=== PATIENT | male | born 1940 | race Caucasian/White ===

== ENCOUNTER 2019-07-16 15:58 | Inpatient (IN) | payer OTHER, SELFPAY ==
[2019-07-16] VITALS (9 sets, daily range): BP systolic 114–127; BP diastolic 52–93; PULSE 46–100; RESP 18–20; TEMP 36.2–37; O2SAT 94–100; BMI 25.0
--- NOTE | ~2019-07-16 | XR_ITS ---
EXAMINATION: XR chest 1V portable EXAM DATE: 07/16/2019 16:48 INDICATION: Shortness of breath. TECHNIQUE: Portable AP frontal chest x-ray was obtained. Comparison is made to prior examination from 06/30/2016. FINDINGS: There is cardiomegaly. No confluent consolidation, pneumothorax or pleural effusion suspect ed. There are mild bony degenerative changes. IMPRESSION: Cardiomegaly. Reviewed, dictated and finalized at location A. RTAINMENT DANCER IMPRESSION: Cardiomegaly.
--- NOTE | 2019-07-16 16:20 | ED.SOB ---
HPI - SOB/Dyspnea General Chief Complaint: Shortness of Breath/Dyspnea Stated Complaint: sob Time Seen by Provider: 07/16/19 16:18 Source: patient and family Mode of arrival: ambulatory Limitations: no limitations History of Present Illness HPI Narrative: An 78 y/o male presents to the ED with c/o mild SOB. Per patient's family, the SOB started 2 weeks and has been constant since. The patient states that the SOB is aggravated with exertion. The family adds that the patient fell on 07/12/19 due to trouble walking. He reports chest wall soreness and BLE swelling, but denies cough, CP, PERALES, back pain, ABD pain, and fever. Pt has been seeing his content producer, Dr. Archibald, for the last few weeks for the BLE swelling. He has a PMHx of dementia, CHF, and AFib, and takes blood thinners daily. MD elicited complaint: shortness of breath Pertinent past history: congestive heart failure Onset (ago): week(s) (2) Timing: constant Severity: mild Exacerbating factors: exertion Associated symptoms: other (Chest wall soreness, BLE swelling) Related Data Allergies Allergy/AdvReac Type Severity Reaction Status Date / Time quinidine Allergy Mild RASH Unverified 02/04/17 14:08 amoxicillin Allergy Unknown Verified 12/08/16 09:58 codeine Allergy Unknown Verified 12/08/16 09:58 enalapril Allergy Unknown Verified 12/08/16 09:58 Penicillins Allergy Unknown Verified 12/08/16 09:58 Review of Systems Review of Systems: All systems reviewed & are unremarkable except as noted in HPI and below Constitutional: Constitutional: Denies fever(s) Cardiovascular: Cardiovascular: Denies chest pain, Reports leg edema (BLE) and Reports other (Chest wall soreness) Respiratory: Respiratory: Denies cough and Reports dyspnea Gastrointestinal: Gastrointestinal: Denies abdominal pain Musculoskeletal: Musculoskeletal: Denies back pain Neurologic: Denies headache(s) [facility] Past Medical History Medical History (Updated 07/16/19 @ 17:55 by Berenice Friedman MD) Afib Ankle fracture, left Arthritis BPH (benign prostatic hyperplasia) Cataracts, bilateral CHF (congestive heart failure) Dementia Eczema History of blood transfusion HTN (hypertension) Pneumonia Shingles Thoracic aortic aneurysm Ventral hernia Surgical History Surgical History (Updated 07/16/19 @ 16:35 by Lisa Oneal) History of cataract surgery History of inguinal hernia repair Family History Family History Sibling Family history of gastrointestinal disorder Mother Acute myocardial infarction Father Family history of lung cancer Family history of emphysema Social History Social History Smoking status: Never smoker Comments Pt has a past surgical history of a pancreaticoduodenectomy for bile duct carcinoma. Exam Const: General: no acute distress and well developed Orientation/consciousness: oriented to person, oriented to place, oriented to time and patient oriented x3 HENMT: Head: normocephalic Ears: external ears normal General nose exam: Normal external nose present Eyes: General: appearance normal, both eyes and all related structures Conjunctivae: conjunctivae normal Neck: Neck: normal visual inspection and full ROM Chest: Chest palpation & inspection: no tenderness and other (Anterior chest wall ecchymosis) Resp: Effort & Inspection: tachypneic Auscultation: clear to auscultation bilaterally Cardio: Rate: tachycardic Rhythm: abnormal rhythm irregularly irregular GI: GI Palp: No abdominal tenderness and Yes Soft to palpation Skin: General skin exam: normal color and turgor normal Neuro: General: oriented to person, oriented to place, oriented to time and patient oriented x3 Cognition (Neuro): normal cognition Extrem: General: normal to inspection, full ROM and edema bilateral (Lower extremity) Psych: Appearance: grossly normal Mental Status: mental status grossly
--- NOTE | 2019-07-16 16:36 | ECG_ITS ---
Measurements Intervals [place] Rate: 86 P: [place]: 0 QRS: -64 QRSD: 113 T: 38 QT: 369 QTc: 442 Interpretive Statements ATRIAL FIBRILLATION LEFT ANTERIOR FASCICULAR BLOCK ABNORMAL ECG Electronically Signed On 07-17-2019 8:14:44 CDT by Scott Sanabria D.O.
[2019-07-16 16:52] LABS: Basophils Percent Auto 0.3 % (0.2-1.2); Eosinophils Absolute Auto 0.1 K/mm3 (0-0.3); Eosinophils Percent Auto 1.5 % (0-4.4); Hematocrit 30.9 % (42.0-52.0); Immature Granulocyte Absolute 0.05 K/mm3 (0.00-0.031); Immature Granulocyte Percent A 0.7 % (0-0.5); Immature Platelet Fraction Pct 2.6 % (0.9-11.2); Lymphocytes Absolute Auto 1.27 K/mm3 (0.9-3.2); Lymphocytes Percent Auto 17.6 % (18.3-44.2); Mean Corpuscular HGB Conc 32.4 g/dl (32-36); Mean Corpuscular Hemoglobin 30.2 pg (26-34); Mean Corpuscular Volume 93.4 fl (80-100); Mean Platelet Volume 10.3 fl (7.4-10.4); Monocytes Percent Auto 13.5 % (2.6-8.5); Neutrophils Absolute Auto 4.8 K/mm3 (1.3-6.7); Neutrophils Percent Auto 66.4 % (45.5-73.1); Platelet Count Result 130 k/mm3 (150-375); Red Blood Count 3.31 M/mm3 (4.6-6.20); Red Cell Distribution Width 14.4 % (11.5-14.5); White Blood Count 7.2 K/mm3 (4.5-10.0)
[2019-07-16 17:02] LABS: Alanine Aminotransferase 27 U/L (4-50); Albumin Level 3.6 g/dL (3.5-5.1); Alkaline Phosphatase 112 U/L (38-126); Aspartate Amino Transferase 42 U/L (17-59); Bilirubin,Total 0.9 mg/dL (0.2-1.3); Blood Urea Nitrogen 28 mg/dL (9-20); Calcium 8.4 mg/dL (8.4-10.2); Carbon Dioxide 24 mmol/L (22-30); Chloride 105 mmol/L (98-107); Estimated CRCL calculation 50 ml/min; Estimated Glomerular Filt Rate 58; Glucose 87 mg/dL (75-110); Potassium 4.8 mmol/L (3.4-5.0); Sodium 133 mmol/L (137-145)
[2019-07-16 17:08] LABS: INR 3.6; Prothrombin Time 35.2 Seconds (11.1-14.7)
[2019-07-16 17:09] LABS: Partial Thromboplastin Time 56.4 SECONDS (22.3-36.8)
[2019-07-16 17:16] LABS: Troponin I 0.052 ng/mL (0.000-0.034)
[2019-07-16 17:48] LABS: NT Pro B Type Natriuretic Pept 7190 PG/ML (5-100)
[2019-07-16] MEDS: FUROSEMIDE INJ 40 MG/4 ML VIAL IV PUSH (18:06)
--- NOTE | 2019-07-16 18:40 | PC.NURSE ---
Pt's family is asking to give the patient his home Metoprolol. Spoke with [employer] Trejo and she stated he was okay to take his home medication.
--- NOTE | 2019-07-16 19:45 | ADMGEN ---
This patient, Abraham Garland, was admitted to IMU Room 210-01 AT 1915. Patient/family oriented to hospital policies and general routines including ID bracelet, bed and alarms, visiting hours, pain management, procedures, bathroom and other care routines, personal items, smoking policy, room service/diet, and visiting hours. Valuables list has been completed. Information on how to activate the Rapid Response Team has been discussed. Patient/Family are encouraged to report perceived risks to care and to ask questions if they do not understand what they are told or what they should do.
[2019-07-16 20:41] LABS: Troponin I 0.056 ng/mL (0.000-0.034)
[2019-07-16] MEDS: DONEPEZIL HCL 10 MG TABLET PO (22:46)
[2019-07-16] MEDS: FINASTERIDE 5 MG TABLET PO (22:46)
[2019-07-16 22:56] LABS: Troponin I 0.058 ng/mL (0.000-0.034)
[2019-07-16] MEDS: METOPROLOL TARTRATE 25 MG TABLET PO (23:41)
[2019-07-16] MEDS: METOPROLOL TARTRATE 12.5 MG TABLET PO (23:42)
[2019-07-17] VITALS (18 sets, daily range): BP systolic 104–139; BP diastolic 72–94; PULSE 72–119; RESP 16–22; TEMP 35.7–37.4; O2SAT 94–100; BMI 10.0
--- NOTE | 2019-07-17 03:46 | PC.NURSE ---
Daylight Savings Time For Daylight Savings Time Ending in the Fall - Clocks are moved back. For Daylight Savings Time Beginning in the Spring - Clocks are moved ahead. For [facility], the time of change occurs at 0200 hrs. Time is taken from the kitchen food server. This entry on the patient's chart recognizes the change in time reflected during documentation. Example: 2 entries for vital signs may be charted for 0200 hrs.
[2019-07-17 05:15] LABS: INR 3.3; Prothrombin Time 33.2 Seconds (11.1-14.7)
[2019-07-17 05:21] LABS: Blood Urea Nitrogen 25 mg/dL (9-20); Calcium 8.2 mg/dL (8.4-10.2); Carbon Dioxide 24 mmol/L (22-30); Chloride 105 mmol/L (98-107); Estimated CRCL calculation 50 ml/min; Estimated Glomerular Filt Rate 58; Glucose 93 mg/dL (75-110); Potassium 3.9 mmol/L (3.4-5.0); Sodium 134 mmol/L (137-145)
[2019-07-17] MEDS: SPIRONOLACTONE 25 MG TABLET PO (08:50)
[2019-07-17] MEDS: METOPROLOL TARTRATE 25 MG TABLET PO ×2 (08:52→20:39)
[2019-07-17] MEDS: METOPROLOL TARTRATE 12.5 MG TABLET PO ×2 (08:53→20:40)
[2019-07-17] MEDS: FUROSEMIDE INJ 40 MG/4 ML VIAL IV PUSH ×3 (08:54→20:38)
[2019-07-17] MEDS: LOSARTAN POTASSIUM 50 MG TABLET PO (08:54)
--- NOTE | 2019-07-17 15:08 | PM.IMHP ---
H&P: HPI History of Present Illness Chief complaint: chf Narrative: Abraham Garland is a 78 year old male very poor historian his is present in the room the patient is normally seen in [facility] his commercial litigation attorney Dr. Archibald is at the hospital, patient states he was seen by the commercial litigation attorney 2 weeks ago had a cardiac echo and he was told ejection fraction is between 35 and 40% patient presented emergency department with a complaint of shortness of breath lower extremity edema, The patient while in his backyard fell and landed on his chest he complains of soreness and bruising, but denies any chest pain palpitation fever or chills, patient tropes are mildly elevated flat Review of Systems Review of Systems: All systems reviewed & are unremarkable except as noted in HPI and below PMFSH Past Medical History Medical History (Updated 07/17/19 @ 15:29 by Anne Blancas MD) Afib Ankle fracture, left Arthritis BPH (benign prostatic hyperplasia) Cataracts, bilateral CHF (congestive heart failure) Dementia Eczema History of blood transfusion HTN (hypertension) Pneumonia Shingles Thoracic aortic aneurysm Ventral hernia Surgical History Surgical History (Updated 07/16/19 @ 16:35 by Lisa Oneal) History of cataract surgery History of inguinal hernia repair Family History Family History Sibling Family history of gastrointestinal disorder Mother Acute myocardial infarction Father Family history of lung cancer Family history of emphysema Social History Social History Smoking status: Never smoker Alcohol intake: former Substance use: never Substance use type: does not use Gender identity (if verbalized by the patient): Male Spiritual care concerns: No Agree to blood products: Yes Meds Home Medications and Allergies Home Medications Medication Instructions Recorded Confirmed Type donepezil 10 mg PO HS 07/16/19 07/16/19 History finasteride 5 mg PO HS 07/16/19 07/16/19 History furosemide 80 mg PO DAILY 07/16/19 07/16/19 History losartan 50 mg PO DAILY 07/16/19 07/16/19 History metoprolol tartrate 37.5 mg PO BID 07/16/19 07/16/19 History spironolactone 25 mg PO DAILY 07/16/19 07/16/19 History warfarin [Jantoven] See Rx Instructions .ROUTE .COMPLEX 07/16/19 07/16/19 History warfarin [Jantoven] See Rx Instructions .ROUTE .COMPLEX 07/16/19 07/16/19 History Allergies Allergy/AdvReac Type Severity Reaction Status Date / Time amoxicillin Allergy Intermediate Rash Verified 07/16/19 18:00 codeine Allergy Intermediate Unknown Verified 07/16/19 18:00 quinidine Allergy Mild RASH Verified 07/16/19 18:00 enalapril Allergy Unknown Unknown Verified 07/16/19 18:00 Penicillins Allergy Unknown Unknown Verified 07/16/19 18:00 Vital Signs Vital Signs - 24 hr 07/16/19 16:14 07/16/19 16:45 07/16/19 18:57 Temperature 98.6 F Pulse Rate 46 L 86 100 Respiratory Rate 20 20 Blood Pressure 114/52 L 126/93 H Pulse Oximetry 97 100 07/16/19 19:11 07/16/19 19:28 07/16/19 20:00 Temperature 97.2 F L Pulse Rate 94 84 84 Respiratory Rate 20 20 20 Blood Pressure 127/76 126/71 Pulse Oximetry 100 94 98 07/16/19 22:00 07/16/19 23:41 07/16/19 23:42 Temperature 97.5 F L Pulse Rate 98 80 95 Respiratory Rate 18 Blood Pressure 116/62 Pulse Oximetry 100 07/17/19 00:00 07/17/19 03:00 07/17/19 03:38 Temperature 97.2 F L Pulse Rate 82 85 84 Respiratory Rate 18 16 Blood Pressure 119/80 Pulse Oximetry 100 100 07/17/19 04:00 07/17/19 06:00 07/17/19 08:00 Temperature 96.2 F L Pulse Rate 94 72 74 Respiratory Rate 18 20 Blood Pressure 122/74 Pulse Oximetry 100 100 07/17/19 08:52 07/17/19 08:53 07/17/19 10:00 Temperature Pulse Rate 82 82 78 Respiratory Rate Blood Pressure Pulse Oximetry 07/17/19 12:00 Temperature 98.3 F Pulse Rate 100 R
[2019-07-17] MEDS: DONEPEZIL HCL 10 MG TABLET PO (20:39)
[2019-07-17] MEDS: FINASTERIDE 5 MG TABLET PO (20:39)
--- NOTE | 2019-07-17 21:37 | PC.NURSE ---
Pt is confused was very combative kicking and trying to punch and climb out of bed. Barbara was notified. After calming the pt and switching him to a room with a sitter she came up and saw him. Pt has stopped hitting at the moment but is still very agitated no orders were given will continue to monitor.
[2019-07-18] VITALS (18 sets, daily range): BP systolic 103–117; BP diastolic 59–69; PULSE 75–120; RESP 18–20; TEMP 36.3–36.6; O2SAT 98–100
[2019-07-18] MEDS: HALOPERIDOL LACTATE 5 MG/ML VIAL 2 MG IM (01:31)
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
[2019-07-18 05:24] LABS: Hematocrit 35.8 % (42.0-52.0); Hemoglobin 11.5 g/dL (14.0-18.0); Mean Corpuscular HGB Conc 32.1 g/dl (32-36); Mean Corpuscular Hemoglobin 29.9 pg (26-34); Mean Platelet Volume 10.3 fl (7.4-10.4); Platelet Count Result 123 k/mm3 (150-375); Red Blood Count 3.85 M/mm3 (4.6-6.20); Red Cell Distribution Width 14.2 % (11.5-14.5); White Blood Count 8.8 K/mm3 (4.5-10.0)
[2019-07-18 05:32] LABS: INR 2.1; Prothrombin Time 23.5 Seconds (11.1-14.7)
[2019-07-18 05:44] LABS: Blood Urea Nitrogen 32 mg/dL (9-20); Calcium 8.8 mg/dL (8.4-10.2); Carbon Dioxide 29 mmol/L (22-30); Chloride 103 mmol/L (98-107); Estimated CRCL calculation 50 ml/min; Estimated Glomerular Filt Rate 58; Glucose 98 mg/dL (75-110); Potassium 4.3 mmol/L (3.4-5.0); Sodium 138 mmol/L (137-145)
[2019-07-18 05:45] LABS: Magnesium 2.3 mg/dL (1.6-2.3)
[2019-07-18] MEDS: SPIRONOLACTONE 25 MG TABLET PO (09:58)
[2019-07-18] MEDS: LOSARTAN POTASSIUM 50 MG TABLET PO (09:59)
[2019-07-18] MEDS: METOPROLOL TARTRATE 25 MG TABLET PO ×2 (09:59→21:23)
[2019-07-18] MEDS: METOPROLOL TARTRATE 12.5 MG TABLET PO ×2 (09:59→21:22)
--- NOTE | 2019-07-18 16:40 | PM.IMPN ---
Progress Note: A&P Assessment and Plan (1) Systolic CHF, acute on chronic: Code(s): I50.23 - Acute on chronic systolic (congestive) heart failure Status: Acute Assessment and Plan: 07/18/19 16:40 Abraham Garland is a 78 year old male very poor historian his is present in the room the patient is normally seen in [facility] his tobacco sorter Dr. Archibald is at the hospital, patient states he was seen by the tobacco sorter 2 weeks ago had a cardiac echo and he was told ejection fraction is between 35 and 40% patient presented emergency department with a complaint of shortness of breath lower extremity edema, The patient while in his backyard fell and landed on his chest he complains of soreness and bruising, but denies any chest pain palpitation fever or chills, patient tropes are mildly elevated flat, patient started on IV Lasix will continue and monitor patient has a known patient's symptoms are already improving, today patient work with physical therapy is quite off balance and will require will benefit from acute rehab I spoke to the adult daycare coordinator and they will arrange for SNF. (2) Afib: Code(s): I48.91 - Unspecified atrial fibrillation Status: Acute Assessment and Plan: Patient rate is controlled patient is anticoagulated with Coumadin will resume Coumadin 6 mg Thursday through Thursday and on Thursday patient takes 4 mg, INR today is 2 point will monitor INR (3) HTN (hypertension): Code(s): I10 - Essential (primary) hypertension Status: Acute Assessment and Plan: Will continue home regimen and monitor (4) Dementia: Code(s): F03.90 - Unspecified dementia without behavioral disturbance Status: Acute Assessment and Plan: Patient is clinically stable Subjective Date/time seen: 07/18/19 16:40 Abraham Garland is a 78 year old male very poor historian his is present in the room the patient is normally seen in [facility] his tobacco sorter Dr. Archibald is at the hospital, patient states he was seen by the tobacco sorter 2 weeks ago had a cardiac echo and he was told ejection fraction is between 35 and 40% patient presented emergency department with a complaint of shortness of breath lower extremity edema, The patient while in his backyard fell and landed on his chest he complains of soreness and bruising, but denies any chest pain palpitation fever or chills, patient tropes are mildly elevated flat, patient started on IV Lasix will continue and monitor patient has a known patient's symptoms are already improving, today patient work with physical therapy is quite off balance and will require will benefit from acute rehab I spoke to the adult daycare coordinator and they will arrange for SNF. Review of Systems Review of Systems: All systems reviewed & are unremarkable except as noted in HPI and below Exam Narrative: Exam Narrative: Elderly frail anxious Const: General: comfortable and no acute distress HENMT: General nose exam: Normal nares present Mouth: Yes moist mucous membranes Eyes: General: appearance normal, both eyes and all related structures Sclera: sclerae normal Neck: Neck: supple Chest: Other: Anterior expect of the chest bruising Resp: Effort & Inspection: normal respiratory effort Auscultation: clear to auscultation bilaterally Cardio: Other: Irregularly irregular GI: Auscultation: normal bowel sounds Skin: Other: Bruising on the chest Neuro: Speech: normal speech Sensory Exam: normal sensation Other: Dementia Extrem: General: normal to inspection Psych: Affect: Anxious affect present Objective Data Vital Signs Vital Signs: Vital Signs - 24 hr 07/17/19 18:00 07/17/19 20:00 07/17/19 20:39 Temperature Pulse Rate 108 H 106 H 119 H Respiratory Rate Blood Pressure Pulse Oximetry 07/17/19 20:40 07/17/19 21:00 07/17/19 22:00 Temperature 99.4 F Pulse Rate 109 H 92 102 H R
[2019-07-18] MEDS: WARFARIN (*PBKC) 4 MG TABLET PO (18:11)
[2019-07-18] MEDS: WARFARIN (*PBKC) 2 MG TABLET PO (18:15)
[2019-07-18] MEDS: FINASTERIDE 5 MG TABLET PO (21:22)
[2019-07-18] MEDS: DONEPEZIL HCL 10 MG TABLET PO (21:23)
[2019-07-19] VITALS (8 sets, daily range): BP systolic 105–119; BP diastolic 60–82; PULSE 79–103; RESP 18–20; TEMP 36.2–36.6; O2SAT 90–94; BMI 10.0
[2019-07-19 04:36] LABS: Hematocrit 33.7 % (42.0-52.0); Hemoglobin 11.1 g/dL (14.0-18.0); Mean Corpuscular HGB Conc 32.9 g/dl (32-36); Mean Corpuscular Hemoglobin 30.2 pg (26-34); Mean Corpuscular Volume 91.8 fl (80-100); Mean Platelet Volume 9.8 fl (7.4-10.4); Platelet Count Result 135 k/mm3 (150-375); Red Blood Count 3.67 M/mm3 (4.6-6.20); Red Cell Distribution Width 13.8 % (11.5-14.5); White Blood Count 8.7 K/mm3 (4.5-10.0)
[2019-07-19 04:46] LABS: Prothrombin Time 22.5 Seconds (11.1-14.7)
[2019-07-19 04:54] LABS: Blood Urea Nitrogen 35 mg/dL (9-20); Calcium 8.3 mg/dL (8.4-10.2); Carbon Dioxide 27 mmol/L (22-30); Chloride 104 mmol/L (98-107); Estimated CRCL calculation 54 ml/min; Estimated Glomerular Filt Rate > 60; Glucose 98 mg/dL (75-110); Sodium 135 mmol/L (137-145)
[2019-07-19] MEDS: METOPROLOL TARTRATE 12.5 MG TABLET PO (10:13)
[2019-07-19] MEDS: SPIRONOLACTONE 25 MG TABLET PO (10:14)
[2019-07-19] MEDS: LOSARTAN POTASSIUM 50 MG TABLET PO (10:14)
[2019-07-19] MEDS: METOPROLOL TARTRATE 25 MG TABLET PO (10:15)
[2019-07-19] MEDS: FUROSEMIDE 80 MG TABLET PO (13:39)
--- NOTE | 2019-07-19 14:26 | PM.DS ---
DS: Diagnosis Admitting Diagnosis Admitting Diagnosis: Acute on chronic systolic (congestive) heart failure Discharge Diagnosis (1) Systolic CHF, acute on chronic: Code(s): I50.23 - Acute on chronic systolic (congestive) heart failure Status: Acute Assessment and Plan: 07/18/19 16:40 Abraham Garland is a 78 year old male very poor historian his is present in the room the patient is normally seen in [facility] his rapid outsole stitcher Dr. Archibald is at the hospital, patient states he was seen by the rapid outsole stitcher 2 weeks ago had a cardiac echo and he was told ejection fraction is between 35 and 40% patient presented emergency department with a complaint of shortness of breath lower extremity edema, The patient while in his backyard fell and landed on his chest he complains of soreness and bruising, but denies any chest pain palpitation fever or chills, patient tropes are mildly elevated flat, patient started on IV Lasix will continue and monitor patient has a known patient's symptoms are already improving, today patient work with physical therapy is quite off balance and will require will benefit from acute rehab I spoke to the attending ambulatory care and they will arrange for SNF. (2) Afib: Code(s): I48.91 - Unspecified atrial fibrillation Status: Acute Assessment and Plan: Patient rate is controlled patient is anticoagulated with Coumadin will resume Coumadin 6 mg Thursday through Thursday and on Thursday patient takes 4 mg, INR today is 2.0 (3) HTN (hypertension): Code(s): I10 - Essential (primary) hypertension Status: Acute Assessment and Plan: Will continue home regimen (4) Dementia: Code(s): F03.90 - Unspecified dementia without behavioral disturbance Status: Acute Assessment and Plan: Patient is clinically stable DS: Summary Hospital Course Reason for hospitalization: Abraham Garland is a 78 year old male very poor historian his is present in the room the patient is normally seen in [facility] his rapid outsole stitcher Dr. Archibald is at the hospital, patient states he was seen by the rapid outsole stitcher 2 weeks ago had a cardiac echo and he was told ejection fraction is between 35 and 40% patient presented emergency department with a complaint of shortness of breath lower extremity edema, The patient while in his backyard fell and landed on his chest he complains of soreness and bruising, but denies any chest pain palpitation fever or chills, patient tropes are mildly elevated flat Time Spent with Patient Time attestation: Total time spent providing and/or coordinating discharge services: Exam Narrative: Exam Narrative: Elderly frail anxious Const: General: comfortable and no acute distress HENMT: General nose exam: Normal nares present Mouth: Yes moist mucous membranes Eyes: General: appearance normal, both eyes and all related structures Sclera: sclerae normal Neck: Neck: supple Chest: Other: Anterior expect of the chest bruising Resp: Effort & Inspection: normal respiratory effort Auscultation: clear to auscultation bilaterally Cardio: Other: Irregularly irregular GI: Auscultation: normal bowel sounds Skin: Other: Bruising on the chest Neuro: Speech: normal speech Sensory Exam: normal sensation Other: Dementia Extrem: General: normal to inspection Psych: Affect: Anxious affect present DS: Data Data Completed and Pending Labs on day of discharge: Labs from last 24 hours 07/19/19 07/19/19 07/19/19 04:23 04:23 04:23 WBC 8.7 RBC 3.67 L Hgb 11.1 L Hct 33.7 L MCV 91.8 MCH 30.2 MCHC 32.9 RDW 13.8 Plt Count 135 L MPV 9.8 PT 22.5 H INR 2.0 Sodium 135 L Potassium 4.0 Chloride 104 Carbon Dioxide 27 BUN 35 H Creatinine 1.10 Estim Creat Clear Calc 54 Estimated GFR > 60 Glucose 98 Calcium 8.3 L Discharge Plan Discharge Attend
== END 2019-07-19 15:10 | DRG 293 ==
LOC: ANHED 18:34 → ANHIMU 18:47
PROVIDERS: Internal Medicine; Admitting Provider Internal Medicine; Emergency Provider Emergency Medicine; PCP Family Medicine; Visit Provider Family Medicine
DX: I11.0 Hypertensive heart disease with heart failure (principal); I50.23 Acute on chronic systolic (congestive) heart failure; N40.0 Benign prostatic hyperplasia without lower urinary tract symptoms; M19.90 Unspecified osteoarthritis, unspecified site; F03.90 Unspecified dementia, unspecified severity, without behavioral disturbance, psychotic disturbance, mood disturbance, and anxiety; L30.9 Dermatitis, unspecified; Z98.42 Cataract extraction status, left eye; Z98.41 Cataract extraction status, right eye; Z79.01 Long term (current) use of anticoagulants; I48.91 Unspecified atrial fibrillation
CPT/HCPCS: 36415; 71045; 80048; 80053; 83735; 83880; 84484; 85025; 85027; 85055; 85610; 85730; 93005; 96372; 96374; 96376; 97161; 97167; 97530; 97535; 99285; A9270; G0378; J1630; J1940

== ENCOUNTER 2019-09-19 11:16 | Outpatient (RCR) | payer OTHER, SELFPAY ==
[2019-09-19 11:40] LABS: Blood Urea Nitrogen 24 mg/dL (9-20); Carbon Dioxide 27 mmol/L (22-30); Chloride 100 mmol/L (98-107); Estimated Glomerular Filt Rate 49; Glucose 85 mg/dL (75-110); Potassium 4.5 mmol/L (3.4-5.0); Sodium 135 mmol/L (137-145)
[2019-09-19 11:42] LABS: Basophils Percent Auto 0.4 % (0.2-1.2); Eosinophils Absolute Auto 0.2 K/mm3 (0-0.3); Eosinophils Percent Auto 2.6 % (0-4.4); Hematocrit 38.6 % (42.0-52.0); Hemoglobin 12.1 g/dL (14.0-18.0); INR 2.7; Immature Granulocyte Absolute 0.03 K/mm3 (0.00-0.031); Immature Granulocyte Percent A 0.4 % (0-0.5); Lymphocytes Absolute Auto 1.87 K/mm3 (0.9-3.2); Mean Corpuscular HGB Conc 31.3 g/dl (32-36); Mean Corpuscular Hemoglobin 29.7 pg (26-34); Mean Corpuscular Volume 94.8 fl (80-100); Monocytes Absolute Auto 0.7 K/mm3 (0.1-0.6); Monocytes Percent Auto 9.7 % (2.6-8.5); Neutrophils Absolute Auto 4.4 K/mm3 (1.3-6.7); Neutrophils Percent Auto 60.9 % (45.5-73.1); Platelet Count Result 217 k/mm3 (150-375); Prothrombin Time 28.2 Seconds (11.1-14.7); Red Blood Count 4.07 M/mm3 (4.6-6.20); Red Cell Distribution Width 14.5 % (11.5-14.5); White Blood Count 7.2 K/mm3 (4.5-10.0)
== END 2019-12-18 23:59 | disposition home or self-care (01) ==
LOC: HOME HLTH 11:16
PROVIDERS: PCP Family Medicine; Visit Provider Internal Medicine Cardiovascular Disease
DX: I48.21 Permanent atrial fibrillation (principal); M79.89 Other specified soft tissue disorders; I05.9 Rheumatic mitral valve disease, unspecified
CPT/HCPCS: 80048; 85025; 85610

== ENCOUNTER 2019-10-17 14:27 | Outpatient (RCR) | payer OTHER, SELFPAY ==
[2019-10-17 15:26] LABS: INR 1.8; Prothrombin Time 20.3 Seconds (11.1-14.7)
== END 2020-01-15 23:59 | disposition home or self-care (01) ==
LOC: ANHLAB 14:27
PROVIDERS: PCP Family Medicine; Visit Provider Specialist
DX: I48.21 Permanent atrial fibrillation (principal)
CPT/HCPCS: 36415; 85610

== ENCOUNTER 2020-07-11 09:27 | Inpatient (IN) | payer OTHER, SELFPAY ==
[2020-07-11] VITALS (19 sets, daily range): BP systolic 89–117; BP diastolic 56–77; PULSE 42–112; RESP 15–30; TEMP 36.1–36.6; O2SAT 87–98
--- NOTE | ~2020-07-11 | XR_ITS ---
EXAMINATION: XR chest 1V portable DATE: 07/11/2020 10:19 INDICATION: Altered mental status TECHNIQUE: frontal view of the chest was obtained. COMPARISON: Chest radiograph dated 07/16/2019 FINDINGS: The lungs are clear with no focal airspace opacities, pulmonary edema, pleural effusion or pneumothor ax. Cardiomegaly. Degenerative skeletal changes in the spine and at the shoulders. IMPRESSION: 1. Cardiomegaly. Reviewed, dictated and finalized at location B. EDICAL ENGINEER IMPRESSION: 1. Cardiomegaly.
--- NOTE | ~2020-07-11 | CT_ITS ---
EXAMINATION: CT brain wo con DATE: 07/11/2020 09:58 INDICATION: Altered mental status. TECHNIQUE: Computed tomography (CT) of the head was performed without intravenous contrast. The mA wa s adjusted according to patient size. Iterative reconstruction technique was employed. The dose-lengt h product was 983.67 mGy-cm. COMPARISON: Head CT 06/30/2016, MRI 07/01/2016 FINDINGS: There are scattered areas of low attenuation in the cerebral white matter. There is no intr acranial hemorrhage, acute infarction, or abnormal intracranial mass lesion. The ventricles are brigitte l in size. There are likely changes of ocular lens replacement surgeries. There is mild mucosal thick ening in the paranasal sinuses. The mastoid air cells are normal. IMPRESSION: 1. Extensive nonspecific cerebral white matter disease, which likely represents chronic small vessel ischemic disease. Reviewed, dictated and finalized at location A. BOARD POSTER
--- NOTE | 2020-07-11 09:28 | ED.AMS ---
HPI - Altered Mental Status General Chief Complaint: Altered Mental Status <Mckay Hooper MD - Last Filed: 07/11/20 19:06> Stated Complaint: covid/ams <Mckay Hooper MD - Last Filed: 07/11/20 19:06> Time Seen by Provider: 07/11/20 09:28 <Mckay Hooper MD - Last Filed: 07/11/20 19:06> History of Present Illness HPI narrative: 79 yo male w/ h/o dementia presents to the ED for altered mental status. He reportedly tested positive for COVID-19 today. And today the staff at the assisted living also noted that he was more confused than usual. He is reportedly usually able to answer some questions appropriately and help with moving. today he was noted to be slumped to the side and not at his normal baseline mentally. On arrival here he is alert and attempts to converse, but speech is garbled. History limited by mental status <Mckay Hooper MD - Last Filed: 07/11/20 19:06> Related Data Home Medications: Home Medications Medication Instructions Recorded Confirmed finasteride 5 mg PO HS 07/16/19 07/11/20 furosemide 80 mg PO DAILY 07/16/19 07/11/20 spironolactone 25 mg PO EVERY OTHER DAY 07/16/19 07/11/20 metoprolol tartrate 37.5 mg PO Q12H 07/11/20 07/11/20 warfarin 5 mg PO DAILY 07/11/20 07/11/20 <Mckay Hooper MD - Last Filed: 07/11/20 19:06> Allergies/Adverse Reactions: Allergies Allergy/AdvReac Type Severity Reaction Status Date / Time amoxicillin Allergy Intermediate Rash Verified 07/11/20 13:40 codeine Allergy Intermediate Unknown Verified 07/11/20 13:40 quinidine Allergy Mild RASH Verified 07/11/20 13:40 enalapril Allergy Unknown Unknown Verified 07/11/20 13:40 Penicillins Allergy Unknown Unknown Verified 07/11/20 13:40 <Mckay Hooper MD - Last Filed: 07/11/20 19:06> Review of Systems Review of Systems: ROS unobtainable: Yes unobtainable due to mental status <Mckay Hooper MD - Last Filed: 07/11/20 19:06> [facility] Past Medical History Medical History: Medical History Afib Ankle fracture, left Arthritis BPH (benign prostatic hyperplasia) Cancer Cataracts, bilateral CHF (congestive heart failure) Chicken pox Dementia Eczema Frequent nosebleeds History of blood transfusion HTN (hypertension) Irregular heart beat Mumps Pneumonia Shingles Thoracic aortic aneurysm Ventral hernia <Mckay Hooper MD - Last Filed: 07/11/20 19:06> Surgical History Surgical History: Surgical History History of cataract surgery History of inguinal hernia repair <Mckay Hooper MD - Last Filed: 07/11/20 19:06> Family History Family History: Family History Sibling Family history of gastrointestinal disorder Mother Acute myocardial infarction Father Family history of lung cancer Family history of emphysema <Mckay Hooper MD - Last Filed: 07/11/20 19:06> Social History Social History: Social History Smoking status: Never smoker Alcohol intake: unknown Substance use: unknown Substance use type: unknown Gender identity (if verbalized by the patient): Male Spiritual care concerns: No Agree to blood products: Yes <Mckay Hooper MD - Last Filed: 07/11/20 19:06> Exam Const: General: no acute distress, alert and confusion <Mckay Hooper MD - Last Filed: 07/11/20 19:06> Nutritional Appearance: well nourished <Mckay Hooper MD - Last Filed: 07/11/20 19:06> HENMT: Mouth: Yes dry mucous membranes <Mckay Hooper MD - Last Filed: 07/11/20 19:06> Resp: Effort & Inspection: normal respiratory effort <Mckay Hooper MD - Last Filed: 07/11/20 19:06> Auscultation: clear to auscultation bilaterally <Mckay Hooper MD - Last Filed: 07/11/20 19:06
--- NOTE | 2020-07-11 09:33 | ECG_ITS ---
Measurements Intervals [place] Rate: 127 P: [place]: 0 QRS: -70 QRSD: 108 T: 76 QT: 339 QTc: 493 Interpretive Statements ATRIAL FIBRILLATION WITH RAPID VENTRICULAR RESPONSE VENTRICULAR PREMATURE COMPLEX LEFT ANTERIOR FASCICULAR BLOCK BORDERLINE ST-T WAVE ABNORMALITY- HIGH LATERAL LEADS BASELINE ARTIFACT- I, II, AVR ABNORMAL ECG Electronically Signed On 07-11-2020 10:43:18 HOSPITAL CLEANING SPECIALIST by Scott Sanabria D.O.
[2020-07-11] MEDS: SODIUM CHLORIDE 0.9% IV 500 ML 999 ML IV CONT (09:50)
[2020-07-11 10:02] LABS: Basophils Percent Auto 0.2 % (0.2-1.2); Eosinophils Percent Auto 0.2 % (0-4.4); Hematocrit 33.7 % (42.0-52.0); Immature Granulocyte Absolute 0.06 K/mm3 (0.00-0.031); Immature Granulocyte Percent A 0.6 % (0-0.5); Lymphocytes Absolute Auto 0.44 K/mm3 (0.9-3.2); Lymphocytes Percent Auto 4.7 % (18.3-44.2); Mean Corpuscular HGB Conc 32.6 g/dl (32-36); Mean Corpuscular Hemoglobin 29.3 pg (26-34); Mean Corpuscular Volume 89.9 fl (80-100); Mean Platelet Volume 10.2 fl (7.4-10.4); Monocytes Absolute Auto 0.9 K/mm3 (0.1-0.6); Monocytes Percent Auto 9.8 % (2.6-8.5); Neutrophils Absolute Auto 7.9 K/mm3 (1.3-6.7); Neutrophils Percent Auto 84.5 % (45.5-73.1); Platelet Count Result 126 k/mm3 (150-375); Red Blood Count 3.75 M/mm3 (4.6-6.20); White Blood Count 9.4 K/mm3 (4.5-10.0)
[2020-07-11 10:13] LABS: Ammonia < 9 umol/L (9-30); INR 3.6; Prothrombin Time 36.2 Seconds (11.1-14.7)
[2020-07-11 10:14] LABS: Lactic Acid Reflex 1.1 mmol/L (0.7-2.1); Partial Thromboplastin Time 46.8 SECONDS (22.3-36.8)
[2020-07-11 10:16] LABS: Alanine Aminotransferase 26 U/L (4-50); Albumin Level 3.7 g/dL (3.5-5.1); Alkaline Phosphatase 126 U/L (38-126); Anion Gap 10 mmol/L (8-16); Aspartate Amino Transferase 36 U/L (17-59); Bilirubin,Total 0.9 mg/dL (0.2-1.3); Blood Urea Nitrogen 34 mg/dL (9-20); CRP 4.3 mg/dL (<1.0); Calcium 8.4 mg/dL (8.4-10.2); Carbon Dioxide 19 mmol/L (22-30); Chloride 111 mmol/L (98-107); Estimated CRCL calculation 38 ml/min; Estimated Glomerular Filt Rate 42; Glucose 98 mg/dL (75-110); Potassium 3.8 mmol/L (3.4-5.0); Sodium 140 mmol/L (137-145)
[2020-07-11 10:23] LABS: Platelet Estimate Adequate (Adequate)
[2020-07-11 10:24] LABS: Ovalocytes 1+ (NORMAL); Poikilocytosis 1+ (NORMAL)
[2020-07-11 10:36] LABS: Add Urine Microscopic? YES; Appearance Urine Clear (Clear); Bilirubin Urine Negative (Negative); Blood Urine 1+ (Negative); Color Urine Yellow (Yellow); Glucose Urine UA Negative (Negative); Ketones Urine Negative (Negative); Leukocyte Esterase Ur Negative LEU/UL (Negative); Mucus Urine Rare /lpf; Nitrate Urine Negative (Negative); Protein Urine 1+ mg/dL (Negative); Specific Grav Ur 1.018 (1.001-1.035); Urobilinogen Urine Negative mg/dL (<2.0); WBC Urine 0-3 /hpf
[2020-07-11] MEDS: DEXAMETHASONE SOD PHOS INJ 4 MG/ML VIAL 6 MG IV PUSH (11:17)
--- NOTE | 2020-07-11 12:53 | PC.NURSE ---
This patient, Abraham Garland, was admitted to [facility] Surg Room 332-01 on 07/11/20 @ 1250. Patient/family oriented to hospital policies and general routines including ID bracelet, bed and alarms, visiting hours, pain management, procedures, bathroom and other care routines, personal items, smoking policy, room service/diet, and visiting hours. Information on how to activate the Rapid Response Team has been discussed. Patient/Family are encouraged to report perceived risks to care and to ask questions if they do not understand what they are told or what they should do.
[2020-07-11] MEDS: LACTATED RINGERS 1,000 ML 75 ML IV CONT (13:03)
--- NOTE | 2020-07-11 14:42 | PM.IMHP ---
H&P: HPI History of Present Illness Date/Time: 07/11/20 14:42 Chief Complaint: confusion Narrative: Abraham Garland is a 79 year old male who presents to the ED today from his assisted living facility, he was recently daignsoed with covid infection and was noted today to be more confused. He is admitted for further evluation and management. he is a poor historian and most of the history is taken from reivew of his medical chart. he has underlying hx of dementia and congestive heart failure with atrial fibrillation. He was noted to be in afib with rvr on ekg on ed evaluation. his chest xray is noted to be negative. His cr is mildly elevated compared to baseline. His CT head came back negative for any acute abnormality. no history of fever, chillls. he does not compalints of anything in particular. he feels he is thirsty and wants to drink some more water. he reports no leg swelling. no chest pain reported. no sob or cough. Review of Systems Review of Systems: ROS unobtainable: Yes unobtainable due to mental status PMFSH Past Medical History Medical History Afib Ankle fracture, left Arthritis BPH (benign prostatic hyperplasia) Cancer Cataracts, bilateral CHF (congestive heart failure) Chicken pox Dementia Eczema Frequent nosebleeds History of blood transfusion HTN (hypertension) Irregular heart beat Mumps Pneumonia Shingles Thoracic aortic aneurysm Ventral hernia Surgical History Surgical History History of cataract surgery History of inguinal hernia repair Family History Family History Sibling Family history of gastrointestinal disorder Mother Acute myocardial infarction Father Family history of lung cancer Family history of emphysema Social History Social History Smoking status: Never smoker Alcohol intake: unknown Substance use: unknown Substance use type: unknown Gender identity (if verbalized by the patient): Male Spiritual care concerns: No Agree to blood products: Yes Meds Home Medications and Allergies Home Medications Medication Instructions Recorded Confirmed Type finasteride 5 mg PO HS 07/16/19 07/11/20 History furosemide 80 mg PO DAILY 07/16/19 07/11/20 History spironolactone 25 mg PO EVERY OTHER DAY 07/16/19 07/11/20 History donepezil 10 mg tablet 10 mg PO HS #30 tablet 05/29/20 07/11/20 Rx metoprolol tartrate 37.5 mg PO Q12H 07/11/20 07/11/20 History warfarin 5 mg PO DAILY 07/11/20 07/11/20 History Allergies Allergy/AdvReac Type Severity Reaction Status Date / Time amoxicillin Allergy Intermediate Rash Verified 07/11/20 13:40 codeine Allergy Intermediate Unknown Verified 07/11/20 13:40 quinidine Allergy Mild RASH Verified 07/11/20 13:40 enalapril Allergy Unknown Unknown Verified 07/11/20 13:40 Penicillins Allergy Unknown Unknown Verified 07/11/20 13:40 Vital Signs Vital Signs - 24 hr 07/11/20 09:32 07/11/20 09:35 07/11/20 09:36 Temperature 97.9 F Pulse Rate 112 H 103 H 107 H Respiratory Rate 22 H 28 H 24 H Blood Pressure 100/63 100/63 Pulse Oximetry 94 94 93 07/11/20 09:45 07/11/20 10:02 07/11/20 10:19 Temperature Pulse Rate 109 H 96 97 Respiratory Rate 30 H 20 26 H Blood Pressure Pulse Oximetry 95 87 L 96 07/11/20 10:30 07/11/20 10:31 07/11/20 10:45 Temperature Pulse Rate 112 H 109 H 96 Respiratory Rate 17 23 H 15 Blood Pressure 105/63 Pulse Oximetry 94 95 07/11/20 10:46 07/11/20 11:00 07/11/20 11:01 Temperature Pulse Rate 97 105 H 95 Respiratory Rate 16 18 16 Blood Pressure 103/60 102/76 Pulse Oximetry 07/11/20 12:38 07/11/20 12:55 Temperature 97.0 F L Pulse Rate 92 80 Respiratory Rate 18 16 Blood Pressure 102/76 102/56 L Pulse Oximetry 97 96 Exam Const: General: no acu
--- NOTE | 2020-07-11 18:18 | PC.NURSE ---
Called assisted living to obtain covid results via fax. Left voicemail.
[2020-07-11] MEDS: METOPROLOL TARTRATE 25 MG TABLET PO (21:23)
[2020-07-11] MEDS: FINASTERIDE 5 MG TABLET PO (21:30)
[2020-07-11] MEDS: METOPROLOL TARTRATE 12.5 MG TABLET PO (21:30)
[2020-07-11] MEDS: DONEPEZIL HCL 10 MG TABLET PO (21:30)
[2020-07-12] VITALS (10 sets, daily range): BP systolic 100–137; BP diastolic 54–88; PULSE 64–115; RESP 16–20; TEMP 36.2–36.7; O2SAT 96–99
[2020-07-12 06:59] LABS: Basophils Percent Auto 0.1 % (0.2-1.2); Eosinophils Percent Auto 0.1 % (0-4.4); Hematocrit 30.3 % (42.0-52.0); Hemoglobin 9.8 g/dL (14.0-18.0); Immature Granulocyte Absolute 0.05 K/mm3 (0.00-0.031); Immature Granulocyte Percent A 0.6 % (0-0.5); Lymphocytes Absolute Auto 1.09 K/mm3 (0.9-3.2); Lymphocytes Percent Auto 13.7 % (18.3-44.2); Mean Corpuscular HGB Conc 32.3 g/dl (32-36); Mean Corpuscular Hemoglobin 29.3 pg (26-34); Mean Corpuscular Volume 90.7 fl (80-100); Mean Platelet Volume 9.7 fl (7.4-10.4); Monocytes Absolute Auto 0.6 K/mm3 (0.1-0.6); Monocytes Percent Auto 7.3 % (2.6-8.5); Neutrophils Absolute Auto 6.2 K/mm3 (1.3-6.7); Neutrophils Percent Auto 78.2 % (45.5-73.1); Platelet Count Result 109 k/mm3 (150-375); Red Blood Count 3.34 M/mm3 (4.6-6.20); White Blood Count 7.9 K/mm3 (4.5-10.0)
[2020-07-12 07:09] LABS: Anion Gap 4 mmol/L (8-16); Blood Urea Nitrogen 33 mg/dL (9-20); Calcium 8.1 mg/dL (8.4-10.2); Carbon Dioxide 22 mmol/L (22-30); Chloride 112 mmol/L (98-107); Estimated CRCL calculation 50 ml/min; Estimated Glomerular Filt Rate 58; Glucose 116 mg/dL (75-110); Potassium 3.8 mmol/L (3.4-5.0); Sodium 138 mmol/L (137-145)
[2020-07-12 07:36] LABS: INR 3.9; Prothrombin Time 38.5 Seconds (11.1-14.7)
[2020-07-12] MEDS: METOPROLOL TARTRATE 25 MG TABLET PO ×2 (08:58→19:44)
[2020-07-12] MEDS: DEXAMETHASONE SOD PHOS INJ 4 MG/ML VIAL 6 MG IV PUSH (08:58)
[2020-07-12] MEDS: METOPROLOL TARTRATE 12.5 MG TABLET PO ×2 (08:58→19:42)
--- NOTE | 2020-07-12 09:16 | PM.IMPN ---
Progress Note: A&P Assessment and Plan (1) Encephalopathy acute: Code(s): G93.40 - Encephalopathy, unspecified Status: Acute Assessment and Plan: On admisson, the patient was more confused than usual and was slumped to the side and not at his normal baseline mentally. On arrival to the ED, he was alert and attempted to converse, but speech was garbled. CT brain showing extensive nonspecific cerebral white matter disease but no acute findings. He usually answers some questions appropriately and he appears to be back to baseline. Suspect confusion related to the dehydration/CATE. Check TSH, B12. Follow. PT/OT started (2) CATE (acute kidney injury): Code(s): N17.9 - Acute kidney failure, unspecified Status: Acute Assessment and Plan: Cr 1.1-1.2 last July but 1.4 in September. Cr 1.6 here but better with IV fluids so suspect related to over diuresis. Stop IV fluids and follow. Bladder US showing <300. (3) COVID-19: Code(s): U07.1 - COVID-19 Status: Acute Assessment and Plan: COVID positive prior to admission. CXR clear and remains on room air. (4) Thrombocytopenia: Code(s): D69.6 - Thrombocytopenia, unspecified Status: Acute Assessment and Plan: Plt count was low last year. Doubt TTP. COnsider ITP. Plt count 126K on admission but dropped to 109K today. Check B12 level. Follow. (5) Anemia: Code(s): D64.9 - Anemia, unspecified Status: Acute Assessment and Plan: Hgb normally runs 10-12 range prior to admission. Hgb 11 on admission and has dropped to 9.8. Probably related to IV fluids but may be related to myelodysplasia with his low plt count. Check iron, B12, etc. Follow. Stop IV fluids since renal function better and his hx of CHF (6) CHF (congestive heart failure): Qualifiers: Heart failure chronicity: chronic Heart failure type: systolic Qualified Code(s): I50.22 - Chronic systolic (congestive) heart failure Code(s): I50.9 - Heart failure, unspecified Status: Acute Assessment and Plan: No Echo here but has hx of systolic CHF with EF 35%. Currently on Metoprolol, lasix and Spironolactone with the last two on hold due to dehydration. No ACEI due to allergy. CXR clear on admisison. Resume Lasix when able depending on his BP. (7) Afib: Qualifiers: Atrial fibrillation type: paroxysmal Qualified Code(s): I48.0 - Paroxysmal atrial fibrillation Code(s): I48.91 - Unspecified atrial fibrillation Status: Acute Assessment and Plan: Fanny has chronic AFib seen by EKG last year and again here. HR mildly elevated on admission but since has been well controlled. Continue metoprolol. INR 3.9 so will hold Coumadin. Continue daily INR. (8) Dementia: Qualifiers: Alzheimer's disease onset: unspecified onset Dementia behavioral disturbance: without behavioral disturbance Dementia type: Alzheimer's Qualified Code(s): G30.9 - Alzheimer's disease, unspecified; F02.80 - Dementia in other diseases classified elsewhere without behavioral disturbance Code(s): F03.90 - Unspecified dementia without behavioral disturbance Status: Acute Assessment and Plan: Alert and talkative. Stable. Contineu Aricept. (9) HTN (hypertension): Qualifiers: Hypertension type: essential hypertension Qualified Code(s): I10 - Essential (primary) hypertension Code(s): I10 - Essential (primary) hypertension Status: Acute Assessment and Plan: Patient's blood pressure was reviewed on 07/12 Blood pressure remains well controlled with occasional lows. Will continue current medications but may need to decrease dosing. (10) DVT prophylaxis: Code(s): Z29.9 - Encounter for prophylactic measures, unspecified Status: Acute Assessment and Plan: INR therapeutic; Coumadin held Subjective
[2020-07-12] MEDS: FINASTERIDE 5 MG TABLET PO (19:44)
[2020-07-12] MEDS: DONEPEZIL HCL 10 MG TABLET PO (19:44)
[2020-07-12] MEDS: OLANZapine 10 MG INJ VIAL 2.5 MG IM (20:32)
[2020-07-13] VITALS (10 sets, daily range): BP systolic 103–132; BP diastolic 60–79; PULSE 50–96; RESP 14–22; TEMP 36.1–37.2; O2SAT 91–100
--- NOTE | 2020-07-13 05:18 | PC.NURSE ---
On 07/13 during shift change Pt became very restless and confused, repeatedly tried to exit his bed. Does not get along with some aids and grew more anxious as people tried to help him. Dr. Stratton ordered Zyprexa for one time dose to calm him down. Tram had Christin sit with him overnight and as long as he had someone to talk to. Patient can't be reoriented or reasoned with due to AMS, would highly recommend Zyprexa in the future if further episodes occur, pt slept on and off all night and only grew restless when he had to urinate. -AEW RN
[2020-07-13 06:19] LABS: Basophils Percent Auto 0.1 % (0.2-1.2); Eosinophils Percent Auto 0.3 % (0-4.4); Hematocrit 31.8 % (42.0-52.0); Hemoglobin 10.2 g/dL (14.0-18.0); Immature Granulocyte Absolute 0.04 K/mm3 (0.00-0.031); Immature Granulocyte Percent A 0.6 % (0-0.5); Lymphocytes Absolute Auto 1.43 K/mm3 (0.9-3.2); Mean Corpuscular HGB Conc 32.1 g/dl (32-36); Mean Corpuscular Hemoglobin 28.7 pg (26-34); Mean Corpuscular Volume 89.3 fl (80-100); Mean Platelet Volume 10.6 fl (7.4-10.4); Monocytes Absolute Auto 0.6 K/mm3 (0.1-0.6); Monocytes Percent Auto 9.1 % (2.6-8.5); Neutrophils Absolute Auto 4.7 K/mm3 (1.3-6.7); Neutrophils Percent Auto 68.9 % (45.5-73.1); Platelet Count Result 127 k/mm3 (150-375); Red Blood Count 3.56 M/mm3 (4.6-6.20); Red Cell Distribution Width 13.8 % (11.5-14.5); White Blood Count 6.8 K/mm3 (4.5-10.0)
[2020-07-13 06:33] LABS: Albumin Level 3.1 g/dL (3.5-5.1); Anion Gap 5 mmol/L (8-16); Blood Urea Nitrogen 38 mg/dL (9-20); Calcium 8.2 mg/dL (8.4-10.2); Carbon Dioxide 23 mmol/L (22-30); Chloride 111 mmol/L (98-107); Estimated CRCL calculation 43 ml/min; Estimated Glomerular Filt Rate 49; Glucose 100 mg/dL (75-110); Magnesium 2.2 mg/dL (1.6-2.3); Potassium 3.8 mmol/L (3.4-5.0); Sodium 139 mmol/L (137-145)
[2020-07-13 06:52] LABS: Iron 66 ug/dL (49-181)
[2020-07-13 07:01] LABS: Percent Iron Saturation 23 % (20-50)
[2020-07-13 07:15] LABS: INR 3.2; Prothrombin Time 32.9 Seconds (11.1-14.7)
[2020-07-13 07:33] LABS: Folic Acid 19.6 ng/mL (2.76->20)
[2020-07-13] MEDS: METOPROLOL TARTRATE 25 MG TABLET PO ×2 (09:30→21:07)
[2020-07-13] MEDS: METOPROLOL TARTRATE 12.5 MG TABLET PO ×2 (09:30→21:06)
--- NOTE | 2020-07-13 16:45 | PM.IMPN ---
Progress Note: A&P Assessment and Plan (1) Encephalopathy acute: Code(s): G93.40 - Encephalopathy, unspecified Status: Acute Assessment and Plan: On admisson, the patient was more confused than usual and was slumped to the side and not at his normal baseline mentally. On arrival to the ED, he was alert and attempted to converse, but speech was garbled. CT brain showing extensive nonspecific cerebral white matter disease but no acute findings. TSH, B12 and folate normal. He usually answers some questions appropriately and he appears to be back to baseline. Spoke with dtr show stated alec is talkative but with mumbled speech at times. Suspect confusion related to the dehydration/CATE/COVID. Follow. Continue PT/OT. (2) CATE (acute kidney injury): Code(s): N17.9 - Acute kidney failure, unspecified Status: Acute Assessment and Plan: Cr 1.1-1.2 last July but 1.4 in September. Cr 1.6 here but better with IV fluids so suspect related to over diuresis. IV fluids stopped and Cr back up slightly to 1.4. Patient eating okay. Will follow. (3) COVID-19: Code(s): U07.1 - COVID-19 Status: Acute Assessment and Plan: COVID positive at the [facility]. Continue isolation. He remains on room air. (4) Thrombocytopenia: Code(s): D69.6 - Thrombocytopenia, unspecified Status: Acute Assessment and Plan: Plt count was low last year. Doubt TTP. COnsider ITP. Plt count 126K on admission but dropped to 109K but back up to 127K today. B12 level okay. Could be related to COVID. Follow. (5) Anemia: Code(s): D64.9 - Anemia, unspecified Status: Acute Assessment and Plan: Hgb normally runs 10-12 range prior to admission. Hgb 11 on admission and has dropped to 9.8. Probably related to IV fluids but may be related to myelodysplasia with his low plt count. Iron studies are normal. B12/folate normal. Hgb better at 10.2 today. Will follow. (6) CHF (congestive heart failure): Qualifiers: Heart failure chronicity: chronic Heart failure type: systolic Qualified Code(s): I50.22 - Chronic systolic (congestive) heart failure Code(s): I50.9 - Heart failure, unspecified Status: Acute Assessment and Plan: No Echo here but has hx of systolic CHF with EF 35%. Currently on Metoprolol, lasix and Spironolactone with the last two on hold due to dehydration. No ACEI due to allergy. CXR clear on admission. Resume Lasix tomorrow at low dose. (7) Afib: Qualifiers: Atrial fibrillation type: paroxysmal Qualified Code(s): I48.0 - Paroxysmal atrial fibrillation Code(s): I48.91 - Unspecified atrial fibrillation Status: Acute Assessment and Plan: Alec has chronic AFib seen by EKG last year and again here. HR mildly elevated on admission but since has been well controlled even with occasional lows. Continue metoprolol at current dose. INR 3.2 so will resume Coumadin. Continue daily INR. (8) Dementia: Qualifiers: Alzheimer's disease onset: unspecified onset Dementia behavioral disturbance: without behavioral disturbance Dementia type: Alzheimer's Qualified Code(s): G30.9 - Alzheimer's disease, unspecified; F02.80 - Dementia in other diseases classified elsewhere without behavioral disturbance Code(s): F03.90 - Unspecified dementia without behavioral disturbance Status: Acute Assessment and Plan: Stable. Continue Aricept. (9) HTN (hypertension): Qualifiers: Hypertension type: essential hypertension Qualified Code(s): I10 - Essential (primary) hypertension Code(s): I10 - Essential (primary) hypertension Status: Acute Assessment and Plan: Patient's blood pressure was reviewed on 07/13 Blood pressure remains well controlled. Will continue current medications. (10) DVT prophylaxis: Code(s): Z29.9 - Encounter for
[2020-07-13] MEDS: DONEPEZIL HCL 10 MG TABLET PO (21:06)
[2020-07-13] MEDS: FINASTERIDE 5 MG TABLET PO (21:07)
[2020-07-14] VITALS (9 sets, daily range): BP systolic 104–135; BP diastolic 59–90; PULSE 53–100; RESP 16–18; TEMP 35.8–36.3; O2SAT 95–100
[2020-07-14 06:52] LABS: Hematocrit 32.4 % (42.0-52.0); Hemoglobin 10.5 g/dL (14.0-18.0); Mean Corpuscular HGB Conc 32.4 g/dl (32-36); Mean Corpuscular Hemoglobin 28.8 pg (26-34); Mean Platelet Volume 10.3 fl (7.4-10.4); Platelet Count Result 136 k/mm3 (150-375); Red Blood Count 3.64 M/mm3 (4.6-6.20); Red Cell Distribution Width 13.8 % (11.5-14.5); White Blood Count 6.2 K/mm3 (4.5-10.0)
[2020-07-14 07:01] LABS: INR 2.1; Prothrombin Time 23.9 Seconds (11.1-14.7)
[2020-07-14 07:09] LABS: Anion Gap 5 mmol/L (8-16); Blood Urea Nitrogen 33 mg/dL (9-20); Calcium 8.3 mg/dL (8.4-10.2); Carbon Dioxide 21 mmol/L (22-30); Chloride 114 mmol/L (98-107); Estimated CRCL calculation 54 ml/min; Estimated Glomerular Filt Rate > 60; Glucose 92 mg/dL (75-110); Potassium 3.9 mmol/L (3.4-5.0); Sodium 140 mmol/L (137-145)
[2020-07-14] MEDS: METOPROLOL TARTRATE 12.5 MG TABLET PO ×2 (09:53→20:40)
[2020-07-14] MEDS: METOPROLOL TARTRATE 25 MG TABLET PO ×2 (09:53→20:39)
--- NOTE | 2020-07-14 13:43 | PCOTNOTE ---
Attempted to see patient this PM for skilled OT session. Per RN before entering room, patient is experiencing increased confusion this date and can attempt therapy if possible. Patient alert and eating lunch upon entry. Increased confusion observed by patient talking toward empty chair in room. Due to patient still eating, will try to attempt to see patient again this PM if possible.
--- NOTE | 2020-07-14 14:03 | PM.IMPN ---
Progress Note: A&P Assessment and Plan (1) Encephalopathy acute: Code(s): G93.40 - Encephalopathy, unspecified Status: Acute Assessment and Plan: On admisson, the patient was more confused than usual and was slumped to the side and not at his normal baseline mentally. On arrival to the ED, he was alert and attempted to converse, but speech was garbled. CT brain showing extensive nonspecific cerebral white matter disease but no acute findings. TSH, B12 and folate normal. Spoke with dtr show stated patient is talkative but with mumbled speech at times. He appears to be back to baseline. Suspect confusion related to the dehydration/JOANN/COVID. Follow. Continue PT/OT. (2) JOANN (acute kidney injury): Code(s): N17.9 - Acute kidney failure, unspecified Status: Acute Assessment and Plan: Cr 1.1-1.2 last July but 1.4 in September. Cr 1.6 here but better with IV fluids so suspect related to over diuresis. IV fluids stopped and Cr stable at 1.1. Patient eating okay. Will follow. Add back low dose lasix. (3) COVID-19: Code(s): U07.1 - COVID-19 Status: Acute Assessment and Plan: COVID positive at the [facility]. Continue isolation. He remains on room air. (4) Thrombocytopenia: Code(s): D69.6 - Thrombocytopenia, unspecified Status: Acute Assessment and Plan: Plt count was low last year. Doubt TTP. Consider ITP. Plt count 126K on admission but dropped to 109K but back up to 136K today. B12 level okay. Mild drop in plt count be related to COVID. Follow. (5) Anemia: Code(s): D64.9 - Anemia, unspecified Status: Acute Assessment and Plan: Hgb normally runs 10-12 range prior to admission. Hgb 11 on admission but dropped to 9.8. Probably related to IV fluids but may be related to myelodysplasia with his low plt count. Iron studies are normal. B12/folate normal. Hgb better at 10.5 today and stable. Will follow periodically. (6) CHF (congestive heart failure): Qualifiers: Heart failure chronicity: chronic Heart failure type: systolic Qualified Code(s): I50.22 - Chronic systolic (congestive) heart failure Code(s): I50.9 - Heart failure, unspecified Status: Acute Assessment and Plan: No Echo here but has hx of systolic CHF with EF 35%. Currently on Metoprolol, lasix and Spironolactone with the last two on hold due to dehydration. No ACEI due to allergy and Joann. CXR clear on admission. Resume Lasix today at low dose. (7) Afib: Qualifiers: Atrial fibrillation type: paroxysmal Qualified Code(s): I48.0 - Paroxysmal atrial fibrillation Code(s): I48.91 - Unspecified atrial fibrillation Status: Acute Assessment and Plan: Fanny has chronic AFib seen by EKG last year and again here. HR mildly elevated on admission but since has been well controlled even with occasional lows. Continue metoprolol at current dose. INR 2.1 so will continue Coumadin. Continue daily INR. (8) Dementia: Qualifiers: Alzheimer's disease onset: unspecified onset Dementia behavioral disturbance: without behavioral disturbance Dementia type: Alzheimer's Qualified Code(s): G30.9 - Alzheimer's disease, unspecified; F02.80 - Dementia in other diseases classified elsewhere without behavioral disturbance Code(s): F03.90 - Unspecified dementia without behavioral disturbance Status: Acute Assessment and Plan: Stable. Continue Aricept. (9) HTN (hypertension): Qualifiers: Hypertension type: essential hypertension Qualified Code(s): I10 - Essential (primary) hypertension Code(s): I10 - Essential (primary) hypertension Status: Acute Assessment and Plan: Patient's blood pressure was reviewed on 07/14 Blood pressure remains well controlled. Will continue current medications. (10) DVT prophylaxis: Code(s): Z29.9 - En
[2020-07-14] MEDS: FUROSEMIDE 20 MG TABLET PO (14:55)
--- NOTE | 2020-07-14 16:33 | PCOTNOTE ---
The patient treatment was not able to be completed this date 07/14/2020 due to being unable to see patient for second attempt. Will plan to continue treatment per plan of care.
[2020-07-14] MEDS: WARFARIN (*PBKC) 5 MG TABLET PO (16:40)
[2020-07-14] MEDS: DONEPEZIL HCL 10 MG TABLET PO (20:40)
[2020-07-14] MEDS: FINASTERIDE 5 MG TABLET PO (20:40)
[2020-07-15] VITALS (9 sets, daily range): BP systolic 94–136; BP diastolic 58–89; PULSE 57–102; RESP 14–20; TEMP 36.2–36.8; O2SAT 91–100
[2020-07-15 06:20] LABS: INR 1.8; Prothrombin Time 21.1 Seconds (11.1-14.7)
[2020-07-15 06:31] LABS: Anion Gap 4 mmol/L (8-16); Blood Urea Nitrogen 27 mg/dL (9-20); Calcium 8.6 mg/dL (8.4-10.2); Carbon Dioxide 26 mmol/L (22-30); Chloride 110 mmol/L (98-107); Estimated CRCL calculation 46 ml/min; Estimated Glomerular Filt Rate 53; Glucose 104 mg/dL (75-110); Potassium 4.7 mmol/L (3.4-5.0); Sodium 140 mmol/L (137-145)
[2020-07-15] MEDS: FUROSEMIDE 20 MG TABLET PO (09:09)
[2020-07-15] MEDS: METOPROLOL TARTRATE 25 MG TABLET PO ×2 (09:10→19:56)
[2020-07-15] MEDS: METOPROLOL TARTRATE 12.5 MG TABLET PO ×2 (09:10→19:56)
--- NOTE | 2020-07-15 14:07 | PM.IMPN ---
Progress Note: A&P Assessment and Plan (1) Encephalopathy acute: Code(s): G93.40 - Encephalopathy, unspecified Status: Acute Assessment and Plan: On admisson, the patient was more confused than usual and was slumped to the side and not at his normal baseline mentally. On arrival to the ED, he was alert and attempted to converse, but speech was garbled. CT brain showing extensive nonspecific cerebral white matter disease but no acute findings. TSH, B12 and folate normal. Spoke with dtr who stated patient is talkative but with mumbled speech at times. He appears to be back to baseline. Suspect confusion related to the dehydration/CATE/COVID. Follow. Continue PT/OT. (2) CATE (acute kidney injury): Code(s): N17.9 - Acute kidney failure, unspecified Status: Acute Assessment and Plan: Cr 1.1-1.4 last year. Cr 1.6 here but better with IV fluids so suspect related to over diuresis. IV fluids stopped. Cr back up to 1.3 today could be related to Lasix. Patient eating okay. Will follow. (3) COVID-19: Code(s): U07.1 - COVID-19 Status: Acute Assessment and Plan: COVID positive at the [facility]. Continue isolation. He remains on room air. (4) Thrombocytopenia: Code(s): D69.6 - Thrombocytopenia, unspecified Status: Acute Assessment and Plan: Plt count was low last year. Doubt TTP. Consider ITP. Plt count 126K on admission but dropped to 109K but back up to 136K yesterday. B12 level okay. Mild drop in plt count could be related to COVID. Follow. (5) Anemia: Code(s): D64.9 - Anemia, unspecified Status: Acute Assessment and Plan: Hgb normally runs 10-12 range prior to admission. Hgb 11 on admission but dropped to 9.8. Probably related to IV fluids but may be related to myelodysplasia with his low plt count. Iron studies are normal. B12/folate normal. Hgb better at 10.5 yesterday and stable. Will follow periodically. (6) CHF (congestive heart failure): Qualifiers: Heart failure chronicity: chronic Heart failure type: systolic Qualified Code(s): I50.22 - Chronic systolic (congestive) heart failure Code(s): I50.9 - Heart failure, unspecified Status: Acute Assessment and Plan: No Echo here but has hx of systolic CHF with EF 35%. Currently on Metoprolol, lasix and Spironolactone with the last two on hold due to dehydration. No ACEI due to allergy and CATE. CXR clear on admission. Cr 1.3; continue Lasix. (7) Afib: Qualifiers: Atrial fibrillation type: paroxysmal Qualified Code(s): I48.0 - Paroxysmal atrial fibrillation Code(s): I48.91 - Unspecified atrial fibrillation Status: Acute Assessment and Plan: Patient has chronic AFib seen by EKG last year and again here. HR mildly elevated on admission but since has been well controlled even with occasional lows. Continue metoprolol at current dose. INR 1.8 today. Continue Coumadin. Continue daily INR. (8) Dementia: Qualifiers: Alzheimer's disease onset: unspecified onset Dementia behavioral disturbance: without behavioral disturbance Dementia type: Alzheimer's Qualified Code(s): G30.9 - Alzheimer's disease, unspecified; F02.80 - Dementia in other diseases classified elsewhere without behavioral disturbance Code(s): F03.90 - Unspecified dementia without behavioral disturbance Status: Acute Assessment and Plan: Stable. Continue Aricept. (9) HTN (hypertension): Qualifiers: Hypertension type: essential hypertension Qualified Code(s): I10 - Essential (primary) hypertension Code(s): I10 - Essential (primary) hypertension Status: Acute Assessment and Plan: Patient's blood pressure was reviewed on 07/15 Blood pressure remains well controlled. Will continue current medications. (10) DVT prophylaxis: Code(s): Z29.9 - Encounter f
[2020-07-15] MEDS: WARFARIN (*PBKC) 5 MG TABLET PO (18:06)
[2020-07-15] MEDS: FINASTERIDE 5 MG TABLET PO (19:57)
[2020-07-15] MEDS: DONEPEZIL HCL 10 MG TABLET PO (19:57)
[2020-07-16] VITALS: PULSE 84
[2020-07-16 04:00] VITALS: BP 120/69; PULSE 79; PULSE 94; RESP 16; TEMP 36.5; O2SAT 96
[2020-07-16 06:15] LABS: INR 1.8; Prothrombin Time 21.6 Seconds (11.1-14.7)
[2020-07-16 06:19] LABS: Anion Gap 5 mmol/L (8-16); Blood Urea Nitrogen 27 mg/dL (9-20); Calcium 7.9 mg/dL (8.4-10.2); Carbon Dioxide 25 mmol/L (22-30); Chloride 109 mmol/L (98-107); Estimated CRCL calculation 50 ml/min; Estimated Glomerular Filt Rate 58; Glucose 99 mg/dL (75-110); Potassium 3.9 mmol/L (3.4-5.0); Sodium 139 mmol/L (137-145)
[2020-07-16 06:49] LABS: Hematocrit 34.9 % (42.0-52.0); Hemoglobin 11.3 g/dL (14.0-18.0); Mean Corpuscular HGB Conc 32.4 g/dl (32-36); Mean Corpuscular Hemoglobin 28.8 pg (26-34); Mean Corpuscular Volume 88.8 fl (80-100); Mean Platelet Volume 10.3 fl (7.4-10.4); Platelet Count Result 164 k/mm3 (150-375); Red Blood Count 3.93 M/mm3 (4.6-6.20); Red Cell Distribution Width 13.7 % (11.5-14.5)
[2020-07-16 08:00] VITALS: BP 121/67; PULSE 102; PULSE 75; PULSE 80; RESP 16; TEMP 36.4; O2SAT 100
[2020-07-16 10:18] VITALS: PULSE 80
[2020-07-16] MEDS: METOPROLOL TARTRATE 12.5 MG TABLET PO (10:18)
[2020-07-16] MEDS: FUROSEMIDE 20 MG TABLET PO (10:18)
[2020-07-16] MEDS: METOPROLOL TARTRATE 25 MG TABLET PO (10:18)
[2020-07-16] MEDS: WARFARIN (*PBKC) 3 MG TABLET PO (10:19)
--- NOTE | 2020-07-16 10:55 | PM.DS ---
DS: Admitting Diagnosis Admitting Diagnosis Admitting Diagnosis: Alteed mental status DS: Discharge Diagnosis Discharge Diagnosis (1) Encephalopathy acute: Code(s): G93.40 - Encephalopathy, unspecified Status: Acute Assessment and Plan: On admission, the patient was more confused than usual and was slumped to the side and not at his normal baseline mentally. On arrival to the ED, he was alert and attempted to converse, but speech was garbled. CT brain showing extensive nonspecific cerebral white matter disease but no acute findings. TSH, B12 and folate normal. Spoke with dtr who stated patient is talkative but with mumbled speech at times. He appears to be back to baseline. Suspect confusion related to the dehydration/CATE/COVID. PT/OT worked with him. (2) CATE (acute kidney injury): Code(s): N17.9 - Acute kidney failure, unspecified Status: Acute Assessment and Plan: Cr 1.1-1.4 last year. Cr 1.6 here but better with IV fluids so suspect related to over diuresis. IV fluids stopped. A lower dose of the Lasix resummed and he tolerated this well. Cr stable at 1.2 today. Patient eating okay. (3) COVID-19: Code(s): U07.1 - COVID-19 Status: Acute Assessment and Plan: COVID positive at the [facility]. He remained in isolation. He remained on room air. (4) Thrombocytopenia: Code(s): D69.6 - Thrombocytopenia, unspecified Status: Acute Assessment and Plan: Plt count was low last year. Doubt TTP. Consider ITP. Plt count 126K on admission but dropped to 109K but back up to 136K B12 level okay. Mild drop in plt count could be related to COVID. (5) Anemia: Code(s): D64.9 - Anemia, unspecified Status: Acute Assessment and Plan: Hgb normally runs 10-12 range prior to admission. Hgb 11 on admission but dropped to 9.8. Probably related to IV fluids but may be related to myelodysplasia given his low plt count. Iron studies are normal. B12/folate normal. Hgb back to baseline at 11.3 on day of discharge. (6) CHF (congestive heart failure): Qualifiers: Heart failure chronicity: chronic Heart failure type: systolic Qualified Code(s): I50.22 - Chronic systolic (congestive) heart failure Code(s): I50.9 - Heart failure, unspecified Status: Acute Assessment and Plan: No Echo here but has hx of systolic CHF with EF 35%. Currently on Metoprolol, lasix and Spironolactone. Diuretics held on admission due to dehydration. No ACEI due to allergy and CATE. CXR clear on admission. Cr stable so lower dose Lasix resumed and he tolerated this well. (7) Afib: Qualifiers: Atrial fibrillation type: paroxysmal Qualified Code(s): I48.0 - Paroxysmal atrial fibrillation Code(s): I48.91 - Unspecified atrial fibrillation Status: Acute Assessment and Plan: Patient has chronic AFib seen by EKG last year and again here. HR mildly elevated on admission but since has been well controlled even with occasional bradycardia. We continued metoprolol at current dose. INR was up to 3.9 so Coumadin held. Cr trended down so Coumadin resumed and currently INR 1.8 today. Continue to monitor INR. (8) Dementia: Qualifiers: Alzheimer's disease onset: unspecified onset Dementia behavioral disturbance: without behavioral disturbance Dementia type: Alzheimer's Qualified Code(s): G30.9 - Alzheimer's disease, unspecified; F02.80 - Dementia in other diseases classified elsewhere without behavioral disturbance Code(s): F03.90 - Unspecified dementia without behavioral disturbance Status: Acute Assessment and Plan: Stable. Continue Aricept. (9) HTN (hypertension): Qualifiers: Hypertension type: essential hypertension Qualified Code(s): I10 - Essential (primary) hypertension Code(s): I10 - Essential (primary) hypertension Status:
[2020-07-16 12:00] VITALS: BP 94/70; PULSE 82; RESP 16; TEMP 36.2; O2SAT 98
--- NOTE | 2020-07-16 15:55 | PC.NURSE ---
Patient was swinging arms and kicking at this RN and FINANCIAL ADVISOR when changing patient's bed linens. Patient has history of dementia. RN and FINANCIAL ADVISOR explained actions to patient before proceeding. Patient still combative. Charge nurse was called in and talked to patient who allowed staff to change him.
== END 2020-07-16 17:50 | DRG 178 ==
LOC: ANHED 10:20 → ANH3MEDSUR 12:31
PROVIDERS: Internal Medicine; Admitting Provider Family Medicine; Emergency Provider Emergency Medicine; PCP Emergency Medicine; Visit Provider Internal Medicine
DX: U07.1 COVID-19 (principal); N17.9 Acute kidney failure, unspecified; I50.22 Chronic systolic (congestive) heart failure; G93.40 Encephalopathy, unspecified; G30.9 Alzheimer's disease, unspecified; F02.80 Dementia in other diseases classified elsewhere, unspecified severity, without behavioral disturbance, psychotic disturbance, mood disturbance, and anxiety; I48.0 Paroxysmal atrial fibrillation; I11.0 Hypertensive heart disease with heart failure; D69.6 Thrombocytopenia, unspecified; D64.9 Anemia, unspecified; Z79.01 Long term (current) use of anticoagulants; Z79.899 Other long term (current) drug therapy; Z88.0 Allergy status to penicillin; Z88.1 Allergy status to other antibiotic agents; Z88.8 Allergy status to other drugs, medicaments and biological substances
CPT/HCPCS: 36415; 51701; 70450; 71045; 80048; 80053; 80069; 81001; 82140; 82607; 82728; 82746; 83540; 83550; 83605; 83735; 85025; 85027; 85610; 85730; 86140; 92523; 93005; 96361; 96374; 97110; 97161; 97165; 97530; 97535; 99285; A9270; G0378; J1100; J7040; J7120

== ENCOUNTER 2020-09-27 12:59 | Inpatient (IN) | payer OTHER, SELFPAY ==
[2020-09-27] VITALS (22 sets, daily range): BP systolic 75–109; BP diastolic 50–81; PULSE 88–122; RESP 12–33; TEMP 36.1–36.7; O2SAT 91–99; BMI 24.4
--- NOTE | ~2020-09-27 | XR_ITS ---
EXAMINATION: XR foot LT min 3V EXAM DATE: 09/27/2020 14:05 INDICATION: Pressure ulcers to heels bilaterally. TECHNIQUE: Left foot dorsoplantar, lateral and oblique projections obtained and reviewed. There is n o prior study for comparison. FINDINGS: Left metatarsal bones unremarkable. There are no bony erosions identified. 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 Some chronic flattening to the talar dome. Pes plan us. Vascular calcifications. There are no acute fractures identified. IMPRESSION: Chronic left foot findings as above. Reviewed, dictated and finalized at location A.
--- NOTE | ~2020-09-27 | XR_ITS ---
EXAMINATION: XR foot RT min 3V EXAM DATE: 09/27/2020 14:05 INDICATION: Pressure ulcers. TECHNIQUE: Right foot dorsoplantar, lateral and oblique projections obtained and reviewed. Correlati on is made to Contralateral foot same date FINDINGS: Right metatarsal bones unremarkable. There is mild to moderate polyarticular primary osteo arthritis. There are no bony erosions identified. There are no acute fractures identified. Pes planu s. IMPRESSION: Chronic right foot findings. Reviewed, dictated and finalized at location A.
--- NOTE | ~2020-09-27 | CT_ITS ---
EXAMINATION: CT brain wo con DATE: 09/27/2020 13:48 INDICATION: Decreased mental status. TECHNIQUE: Computed tomography (CT) of the head was performed without intravenous contrast. The mA wa s adjusted according to patient size. Iterative reconstruction technique was employed. The dose-lengt h product was 681.00 mGy-cm. COMPARISON: Head CT 07/11/2020 FINDINGS: There are scattered areas of low attenuation in the cerebral white matter. There is no intr acranial hemorrhage, acute infarction, or abnormal intracranial mass lesion. The ventricles are brigitte l in size. There is mild mucosal thickening in the ethmoid sinuses. There are likely changes of ocula r lens replacement surgeries. There is a trace right mastoid effusion. IMPRESSION: 1. Stable extensive nonspecific cerebral white matter disease, which likely represents chronic small vessel ischemic disease. Reviewed, dictated and finalized at location A. IMPRESSION: 1. Stable extensive nonspecific cerebral white matter disease, which likely rep resents chronic small vessel ischemic disease.
--- NOTE | ~2020-09-27 | XR_ITS ---
EXAMINATION: XR chest 1V EXAM DATE: 09/27/2020 14:03 INDICATION: Decreased mental status. TECHNIQUE: Portable AP frontal chest x-ray was obtained. Comparison is made to prior examination from 07/11/2020. FINDINGS: There is cardiomegaly. No confluent consolidation, pneumothorax or pleural effusion suspect ed. There is severe left glenohumeral joint primary osteoarthritis. There is no significant interval change. IMPRESSION: Cardiomegaly. Reviewed, dictated and finalized at location A. IMPRESSION: Cardiomegaly.
--- NOTE | 2020-09-27 13:14 | ECG_ITS ---
Measurements Intervals M[place] Rate: 99 P: GA: 0 QRS: -42 QRSD: 114 T: 20 QT: 413 QTc: 530 Interpretive Statements ATRIAL FIBRILLATION VENTRICULAR PREMATURE COMPLEX LEFT AXIS DEVIATION INCOMPLETE RIGHT BUNDLE BRANCH BLOCK POOR R WAVE PROGRESSION, ANTERIOR LEADS BASELINE ARTIFACT- II, III, AVR, AVF, V1, V3-V6 ABNORMAL ECG Electronically Signed On 09-27-2020 13:53:35 CDT by Scott Sanabria D.O.
[2020-09-27 13:30] LABS: Alveolar/Arterial O2 Gradient 41.2 mmHg; Base Excess ABG -2.4 mEq/l (+/-2.0); Carboxyhemoglobin 0.3 % THb (0-2.0); Device ROOM AIR; Fractional Inspired Oxygen 21 %; HCO3 ABG 20.4 mEq/l (22.0-26.0); Methemoglobin ABG 0.3 %THb (0-1.5); Oxygen Content ABG 14.5 %vol (16.0-22.0); Oxygen Saturation ABG 95.9 % (95.0-100.0); Oxyhemoglobin 93.9 % THb (90.0-100.0); PCO2 ABG 28.9 mmHg (35.0-45.0); PO2 ABG 73.9 mmHg (80.0-100.0); PO2 FiO2 Ratio Arterial Blood 3.52 %; Reduced Hemoglobin 5.5 %THb (0-5.0); Site Drawn RIGHT BRACHIAL; Total Hemoglobin 10.9 g/dL (12.0-18.0); pH ABG 7.467 (7.350-7.450)
[2020-09-27 13:34] LABS: Glucose Point of Care 112 mg/dl (65-105)
[2020-09-27] MEDS: SODIUM CHLORIDE 0.9% IV 500 ML 999 ML IV CONT ×4 (13:46→17:08)
--- NOTE | 2020-09-27 13:57 | ED.AMS ---
HPI - Altered Mental Status General Chief Complaint: Altered Mental Status Stated Complaint: decreased loc Time Seen by Provider: 09/27/20 13:03 Source: EMS Mode of arrival: EMS Limitations: altered mental status History of Present Illness HPI narrative: This is an 79 year old male with history of afib, cHF, PAD who presents from the group home who presents for evaluation of altered mental status. Nursing report that patient is not as talkative as he normally. IT is unclear how long patient has been altered. They also reports patient was 79% on room air at the group home but he is 97% on room air in ED. Related Data Home Medications Medication Instructions Recorded Confirmed finasteride 5 mg PO HS 07/16/19 07/11/20 metoprolol tartrate 37.5 mg PO Q12H 07/11/20 07/11/20 arginine-vitamin C-vitamin E 4.5 g PO BID 09/27/20 [Arginaid] bisacodyl 10 mg RECTAL DAILY PRN 09/27/20 lorazepam [Ativan] 0.5 mg PO HS PRN 09/27/20 memantine [Namenda] 5 mg PO BID 09/27/20 multivitamin with minerals [Daily 1 tablet PO DAILY 09/27/20 Multivitamin-Minerals] warfarin 1 mg PO DAILY 09/27/20 warfarin 6 mg PO DAILY 09/27/20 Allergies Allergy/AdvReac Type Severity Reaction Status Date / Time amoxicillin Allergy Intermediate Rash Verified 09/27/20 13:59 codeine Allergy Intermediate Unknown Verified 09/27/20 13:59 quinidine Allergy Mild RASH Verified 09/27/20 13:59 enalapril Allergy Unknown Unknown Verified 09/27/20 13:59 Penicillins Allergy Unknown Unknown Verified 09/27/20 13:59 Review of Systems Review of Systems: ROS unobtainable: Yes unobtainable due to medical condition PMFSH Past Medical History Medical History Afib Ankle fracture, left Arthritis BPH (benign prostatic hyperplasia) Cancer Cataracts, bilateral CHF (congestive heart failure) Chicken pox Dementia Eczema Frequent nosebleeds History of blood transfusion HTN (hypertension) Irregular heart beat Mumps Pneumonia Shingles Thoracic aortic aneurysm Ventral hernia Surgical History Surgical History History of cataract surgery History of inguinal hernia repair Family History Family History Sibling Family history of gastrointestinal disorder Mother Acute myocardial infarction Father Family history of lung cancer Family history of emphysema Social History Social History Smoking status: Never smoker Alcohol intake: unknown Substance use: unknown Substance use type: unknown Gender identity (if verbalized by the patient): Male Spiritual care concerns: No Agree to blood products: Yes Exam Const: General: ill appearing Other: patient laying in bed with moan HENMT: Face and sinus: face symmetric Mouth: Yes moist mucous membranes Eyes: EOM: EOMs intact bilaterally Other: pinpoint pupils Chest: Chest palpation & inspection: normal inspection of the chest Resp: Effort & Inspection: normal respiratory effort and no retractions Auscultation: not clear to auscultation bilaterally Cardio: Rhythm: regular rhythm and abnormal rhythm Heart sounds: Murmur heart sound present GI: GI Palp: Yes Soft to palpation, No Tenderness to palpation present (GI) and No Guarding due to palpation present (GI) Auscultation: normal bowel sounds Neuro: Other: localize pain Extrem: Other: bilateral heel ulcers with eschar, no drainage, no surrounding erythema Course Reevaluation(s) Reevaluation #1: I discussed with patient's daughter and POA patient condition. He has decreased mentation with low BP and elevated wbc with UTI. Patient is DNR, DNI. She is agreeable after discussion of risk and benefits she is okay with CVL and pressors. Date: 09/27/20 Time: 17:00 Date: 09/27/20 Consultations Consultation #1: I Discussed case with Haley ann
[2020-09-27 14:04] LABS: Partial Thromboplastin Time 36.2 SECONDS (22.3-36.8)
[2020-09-27 14:16] LABS: Lactic Acid Reflex 1.4 mmol/L (0.7-2.1)
[2020-09-27 14:18] LABS: Alanine Aminotransferase 34 U/L (4-50); Alkaline Phosphatase 234 U/L (38-126); Anion Gap 7 mmol/L (8-16); Aspartate Amino Transferase 64 U/L (17-59); Bilirubin,Total 1.2 mg/dL (0.2-1.3); Blood Urea Nitrogen 33 mg/dL (9-20); Calcium 7.9 mg/dL (8.4-10.2); Carbon Dioxide 23 mmol/L (22-30); Chloride 110 mmol/L (98-107); Estimated CRCL calculation 38 ml/min; Estimated Glomerular Filt Rate 45; Glucose 109 mg/dL (75-110); Potassium 3.7 mmol/L (3.4-5.0); Sodium 140 mmol/L (137-145)
[2020-09-27 14:25] LABS: NT Pro B Type Natriuretic Pept 28300 pg/mL (5-100)
[2020-09-27 14:53] LABS: Basophils Percent Auto 0.2 % (0.2-1.2); Hematocrit 31.9 % (42.0-52.0); Hemoglobin 10.2 g/dL (14.0-18.0); Immature Granulocyte Absolute 0.14 K/mm3 (0.00-0.031); Immature Granulocyte Percent A 0.7 % (0-0.5); Immature Reticulocyte Fraction 15.2 % (3.0-15.9); Lymphocytes Absolute Auto 1.47 K/mm3 (0.9-3.2); Lymphocytes Percent Auto 7.7 % (18.3-44.2); Mean Corpuscular Hemoglobin 29.4 pg (26-34); Mean Corpuscular Volume 91.9 fl (80-100); Mean Platelet Volume 10.2 fl (7.4-10.4); Monocytes Absolute Auto 0.9 K/mm3 (0.1-0.6); Monocytes Percent Auto 4.8 % (2.6-8.5); Neutrophils Absolute Auto 16.6 K/mm3 (1.3-6.7); Neutrophils Percent Auto 86.6 % (45.5-73.1); Platelet Count Result 175 k/mm3 (150-375); Red Blood Count 3.47 M/mm3 (4.6-6.20); Red Cell Distribution Width 14.9 % (11.5-14.5); Reticulocyte Hemoglobin Conten 31.7 pg (28.2-35.7); Reticulocyte Percent 1.72 % (0.7-4.3); Reticulocytes Absolute 0.06 B/L (32.2-175.7); White Blood Count 19.1 K/mm3 (4.5-10.0)
[2020-09-27 15:08] LABS: Add Urine Microscopic? YES; Appearance Urine Cloudy (Clear); Bacteria Urine Trace /hpf; Bilirubin Urine Negative (Negative); Blood Urine 1+ (Negative); Color Urine Amber (Yellow); Glucose Urine UA Negative (Negative); Ketones Urine Negative (Negative); Leukocyte Esterase Ur 2+ LEU/UL (Negative); Nitrate Urine Negative (Negative); Protein Urine 1+ mg/dL (Negative); Specific Grav Ur 1.017 (1.001-1.035); Squamous Epithelial Cell Urine Rare /hpf (Few); WBC Urine 21-30 /hpf
[2020-09-27] MEDS: metroNIDAZOLE 500 MG/ISO 100ML 500 MG/100 ML BAG 100 MG IVPB (16:41)
--- NOTE | 2020-09-27 16:58 | PC.NURSE ---
Dr Andino spoke with pt daughter and POA and got permission to put a central line into pt. Dr. Andino went over risks and benefits of the procedure. This RN and DIANE Baptiste spoke with POA as well and got verbal consent. Consent was signed
--- NOTE | 2020-09-27 17:09 | PC.NURSE ---
rolled up towels placed under pts ankles to get heels off of bed
[2020-09-27] MEDS: SODIUM CHLORIDE 0.9% IV 1,000 ML 125 ML IV CONT (17:11)
[2020-09-27 17:32] LABS: INR 1.7; Prothrombin Time 20.8 Seconds (11.1-14.7)
--- NOTE | 2020-09-27 18:40 | PC.NURSE ---
Report called to Areli in ICU at 1835.
--- NOTE | 2020-09-27 19:00 | PC.NURSE ---
This patient, Abraham Garland, was admitted to Intensive Care Unit-8. Patient/family oriented to hospital policies and general routines including ID bracelet, bed and alarms, visiting hours, pain management, procedures, bathroom and other care routines, personal items, smoking policy, room service/diet, and visiting hours. Information on how to activate the Rapid Response Team has been discussed. Patient/Family are encouraged to report perceived risks to care and to ask questions if they do not understand what they are told or what they should do.
--- NOTE | 2020-09-27 19:45 | PM.IMHP ---
H&P: HPI History of Present Illness Date/Time: 09/27/20 19:45 this is a 79 year old male patient who is from [facility]. The patient has end-stage dementia and typically yells out. The patient was nonverbal today and the staff consider this a altered mental status change. The patient had and pulse ox of 79% on room air according to the [facility] staff. However the patient was satting 97% on room air in the emergency room. His white count was noted to be 19.1. H&H 10.2 and 31.9. PH was normal. CO2 was low. Creatinine 1.5. BNP 47575. The patient was found to have a UTI. He was started on Levaquin. Patient was hypotensive in the ED and he was given 5 L of IV fluids. Patient's blood pressure remained low with a map of less than 65. A central line was placed to the left femoral area in the emergency room. Patient was given Levaquin and Flagyl. His lactic was normal. Head CT was read by radiology as stable extensive nonspecific cerebral white matter disease, which likely represents chronic small vessel ischemic disease. Chest x-ray was read as cardiomegaly. Left foot x-ray was read as chronic left foot findings. Chronic right foot findings. The patient has chronic decubitus on his heels. The patient is being admitted to ICU inpatient on the patient's date of service is 09/27/2020. Chief Complaint: Sepsis Review of Systems Review of Systems: ROS unobtainable: Yes unobtainable due to mental status PMFSH Past Medical History Medical History (Updated 09/27/20 @ 20:24 by Haley Su NP) Afib Ankle fracture, left Arthritis BPH (benign prostatic hyperplasia) Cancer Cataracts, bilateral CHF (congestive heart failure) Chicken pox Dementia Eczema Frequent nosebleeds History of blood transfusion HTN (hypertension) Irregular heart beat Mumps Pneumonia Shingles Thoracic aortic aneurysm Ventral hernia Surgical History Surgical History History of cataract surgery History of inguinal hernia repair Family History Family History Sibling Family history of gastrointestinal disorder Mother Acute myocardial infarction Father Family history of lung cancer Family history of emphysema Social History Social History (Updated 09/27/20 @ 20:08 by Haley Su NP) Social History: The patient is from [facility]. The patient is noted to be retired and he is listed as being . The patient is listed as a DNR. He has a daughter is listed as next of kin for screed person. Smoking status: Never smoker Alcohol intake: unknown Substance use: unknown Substance use type: unknown Gender identity (if verbalized by the patient): Male Spiritual care concerns: No Agree to blood products: Yes Meds Home Medications and Allergies Home Medications Medication Instructions Recorded Confirmed Type finasteride 5 mg PO HS 07/16/19 09/27/20 History donepezil 10 mg tablet 10 mg PO HS #30 tablet 05/29/20 09/27/20 Rx metoprolol tartrate 37.5 mg PO Q12H 07/11/20 09/27/20 History acetaminophen [Mapap 650 mg PO Q4H PRN #30 tablet 07/16/20 09/27/20 Rx (acetaminophen)] furosemide 20 mg PO DAILY #30 tablet 07/16/20 09/27/20 Rx arginine-vitamin C-vitamin E 4.5 g PO BID 09/27/20 09/27/20 History [Arginaid] bisacodyl 10 mg RECTAL DAILY PRN 09/27/20 09/27/20 History lorazepam [Ativan] 0.5 mg PO TID PRN 09/27/20 09/27/20 History memantine [Namenda] 5 mg PO BID 09/27/20 09/27/20 History multivitamin with minerals [Daily 1 tablet PO DAILY 09/27/20 09/27/20 History Multivitamin-Minerals] warfarin 3 mg PO DAILY 09/27/20 History Allergies Allergy/AdvReac Type Severity Reaction Status Date / Time amoxicillin Allergy Intermediate Rash Verified 09/27/20 13:59 codeine Allergy Intermediate Unknown Verified 09/27/20 13:59 quinidine Allergy Mild RASH Verified 09/27/20 13:59 enalapril
[2020-09-27] MEDS: MEMANTINE 5 MG TABLET PO (21:23)
[2020-09-27] MEDS: ENOXAPARIN 80 MG/0.8 ML SYRINGE SUB-Q (21:23)
[2020-09-27] MEDS: WARFARIN (*PBKC) 3 MG TABLET PO (21:23)
[2020-09-27] MEDS: DONEPEZIL HCL 10 MG TABLET PO (21:23)
[2020-09-27] MEDS: FINASTERIDE 5 MG TABLET PO (21:23)
[2020-09-27 21:31] LABS: INR 1.8; Prothrombin Time 21.8 Seconds (11.1-14.7)
[2020-09-28] VITALS (15 sets, daily range): BP systolic 90–114; BP diastolic 58–95; PULSE 85–121; RESP 15–29; TEMP 36.1–36.6; O2SAT 96–100; BMI 24.7
[2020-09-28] MEDS: metroNIDAZOLE 500 MG/ISO 100ML 500 MG/100 ML BAG 100 MG IVPB ×3 (00:17→14:06)
[2020-09-28] MEDS: SODIUM CHLORIDE 0.9% IV 1,000 ML 125 ML IV CONT (04:09)
[2020-09-28 04:38] LABS: Basophils Percent Auto 0.2 % (0.2-1.2); Eosinophils Absolute Auto 0.1 K/mm3 (0-0.3); Hematocrit 27.1 % (42.0-52.0); Hemoglobin 8.7 g/dL (14.0-18.0); Immature Granulocyte Absolute 0.06 K/mm3 (0.00-0.031); Immature Granulocyte Percent A 0.6 % (0-0.5); Lymphocytes Percent Auto 18.3 % (18.3-44.2); Mean Corpuscular HGB Conc 32.1 g/dl (32-36); Mean Corpuscular Hemoglobin 29.4 pg (26-34); Mean Corpuscular Volume 91.6 fl (80-100); Mean Platelet Volume 10.1 fl (7.4-10.4); Monocytes Absolute Auto 0.7 K/mm3 (0.1-0.6); Monocytes Percent Auto 7.3 % (2.6-8.5); Neutrophils Absolute Auto 7.2 K/mm3 (1.3-6.7); Neutrophils Percent Auto 72.6 % (45.5-73.1); Platelet Count Result 146 k/mm3 (150-375); Red Blood Count 2.96 M/mm3 (4.6-6.20); Red Cell Distribution Width 14.9 % (11.5-14.5); White Blood Count 9.9 K/mm3 (4.5-10.0)
[2020-09-28 04:55] LABS: INR 2.1; Prothrombin Time 24.4 Seconds (11.1-14.7)
[2020-09-28 05:03] LABS: Alanine Aminotransferase 29 U/L (4-50); Albumin Level 2.3 g/dL (3.5-5.1); Alkaline Phosphatase 178 U/L (38-126); Anion Gap 2 mmol/L (8-16); Aspartate Amino Transferase 55 U/L (17-59); Bilirubin,Total 0.5 mg/dL (0.2-1.3); Blood Urea Nitrogen 30 mg/dL (9-20); Calcium 7.6 mg/dL (8.4-10.2); Carbon Dioxide 24 mmol/L (22-30); Chloride 113 mmol/L (98-107); Estimated CRCL calculation 53 ml/min; Estimated Glomerular Filt Rate > 60; Glucose 82 mg/dL (75-110); Potassium 3.5 mmol/L (3.4-5.0); Sodium 139 mmol/L (137-145)
[2020-09-28] MEDS: CENTRAL LINE FLUSH 10 ML IV PUSH ×5 (05:21→20:43)
[2020-09-28] MEDS: POTASSIUM CHLORIDE 20 MEQ PACKET (FOR LIQUID) PO (06:35)
[2020-09-28] MEDS: MEMANTINE 5 MG TABLET PO ×2 (08:32→20:43)
[2020-09-28] MEDS: THERAPEUTIC MULTIVITAMINS/MINERALS TAB (*BKC) 1 TABLET PO (08:32)
--- NOTE | 2020-09-28 09:08 | WPDCNINT ---
Assessment and Plan Assessment and plan (1) Sepsis: Code(s): A41.9 - Sepsis, unspecified organism Status: Acute Assessment and Plan: Secondary to UTI Urine and blood culture pending. Continue empiric antibiotics -levaquin IV fluid bolus was given on presentation and now on IV fluid infusion Has not required vasopressors at this time (2) Acute UTI: Code(s): N39.0 - Urinary tract infection, site not specified Status: Acute Assessment and Plan: Urine culture pending (3) CATE (acute kidney injury): Code(s): N17.9 - Acute kidney failure, unspecified Status: Acute Assessment and Plan: Likely pre renal from sepsis and dehydration Continue IV fluids but will decrease the rate and change to LR due to hyperchloremia (4) Encephalopathy acute: Code(s): G93.40 - Encephalopathy, unspecified Status: Acute Assessment and Plan: Likely toxic metabolic encephalopathy Head CT negative Improving (5) Afib: Qualifiers: Atrial fibrillation type: paroxysmal Qualified Code(s): I48.0 - Paroxysmal atrial fibrillation Code(s): I48.91 - Unspecified atrial fibrillation Status: Chronic Assessment and Plan: Is currently not in RVR Resume low-dose metoprolol Continue warfarin Monitor daily INR (6) Pressure ulcer of left heel: Code(s): L89.629 - Pressure ulcer of left heel, unspecified stage Status: Acute Assessment and Plan: Local from care. Wound Care consult X-ray did result noted (7) Pressure ulcer of right heel: Code(s): L89.619 - Pressure ulcer of right heel, unspecified stage Status: Acute Assessment and Plan: Local wound care. Wound Care consult X-ray result noted Additional Plan DVT prophylaxis - Warfarin Nutrition - Resume diet Code Status -patient is DNR Total Critical Care Time - 320 minutes Due to a high probability of clinically significant, life threatening deterioration, the patient required my highest level of preparedness to intervene emergently and I personally spent this critical care time directly and personally managing the patient. This critical care time included obtaining a history; examining the patient; pulse oximetry; ordering and review of studies; arranging urgent treatment with development of a management plan; evaluation of patient's response to treatment; frequent reassessment; and discussions with other providers. It was exclusive of separately billable procedures and treating other patients and teaching time. Please see Assessment and Plan section and the rest of the note for further information on patient assessment and treatment Yard Labor Supervisor Consult Note Consult date: 09/28/20 Time Seen: 08:00 HPI: Abraham Garland is a 79 year old male who is from [facility]. The patient has end-stage dementia and typically mostly yells out in toxin appropriate was brought yesterday to ED because patient was nonverbal today and the staff consider this a altered mental status change. In ER patient was unable to provide any meaningful history. Head CT was negative. Workup showed the patient had UTI and sepsis. He was also in CATE and BNP 83333. T patient was given bolus IV fluids. He was started on IV antibiotics and IV fluids and admitted to ICU for further evaluation management Patient at this time is much more awake and alert but again he talks inappropriate and random words in sentences and does not provide any meaningful history. When asked if he is having shortness of breath or pain he states now although I am not sure how reliable his history is. He keeps on pulling on his sheets and rubbing his skin Review of Systems Review of Systems: ROS unobtainable: Yes unobtainable due to medical condition [facility] Past Medical History Medical History Afib Ankle fracture, left Arthritis BPH (benign prostatic hype
[2020-09-28] MEDS: LACTATED RINGERS 1,000 ML 75 ML IV CONT ×2 (10:11→23:34)
--- NOTE | 2020-09-28 14:58 | PM.IMPN ---
Progress Note: A&P Assessment and Plan (1) Septic shock: Code(s): A41.9 - Sepsis, unspecified organism; R65.21 - Severe sepsis with septic shock Status: Acute Assessment and Plan: Patient was diagnosed with urinary tract infection he was started on Levaquin and Flagyl. Patient's lactic was normal. The central line is in the left femoral area. Blood culture and urine cultures are pending. White count 19.1. Bp is better now on vasopressors. (2) CAET (acute kidney injury): Code(s): N17.9 - Acute kidney failure, unspecified Status: Acute Assessment and Plan: creat is 1.1, Could be related to the sepsis. (3) Acute UTI: Code(s): N39.0 - Urinary tract infection, site not specified Status: Acute Assessment and Plan: Blood cultures and urine cultures are pending patient started on Levaquin and Flagyl. (4) Pressure ulcer of right heel: Code(s): L89.619 - Pressure ulcer of right heel, unspecified stage Status: Acute Assessment and Plan: Wound care consult has been placed. We of applied Mepilex to both of the heels. (5) Pressure ulcer of left heel: Code(s): L89.629 - Pressure ulcer of left heel, unspecified stage Status: Acute Assessment and Plan: Wound care consult has been placed. We of applied Mepilex to both of the heels. (6) CHF (congestive heart failure): Qualifiers: Heart failure type: systolic Heart failure chronicity: chronic Qualified Code(s): I50.22 - Chronic systolic (congestive) heart failure Code(s): I50.9 - Heart failure, unspecified Status: Acute Assessment and Plan: I am holding the patient's diuretics for now as he is hypotensive. (7) DVT prophylaxis: Code(s): Z29.9 - Encounter for prophylactic measures, unspecified Status: Acute Assessment and Plan: INR is 2, Continue with coumadin (8) Dementia: Qualifiers: Dementia type: Alzheimer's Alzheimer's disease onset: unspecified onset Dementia behavioral disturbance: without behavioral disturbance Qualified Code(s): G30.9 - Alzheimer's disease, unspecified; F02.80 - Dementia in other diseases classified elsewhere without behavioral disturbance Code(s): F03.90 - Unspecified dementia without behavioral disturbance Status: Acute Assessment and Plan: Continue with Namenda. (9) Systolic CHF, acute on chronic: Code(s): I50.23 - Acute on chronic systolic (congestive) heart failure Status: Acute Assessment and Plan: Patient's metoprolol is on hold at this time due to his hypotension. Lasix is also on hold due to the hypotension. (10) Afib: Qualifiers: Atrial fibrillation type: paroxysmal Qualified Code(s): I48.0 - Paroxysmal atrial fibrillation Code(s): I48.91 - Unspecified atrial fibrillation Status: Chronic Assessment and Plan: Metoprolol is on hold at this time. Continue with Coumadin. Subjective Date/time seen: 09/28/20 14:58 Interval history: 79 year old male patient who is from [facility]. The patient has end-stage dementia and typically yells out. The patient was nonverbal today and the staff consider this a altered mental status change. Pt admitted for septic shock history of dementia and chf. Review of Systems Review of Systems: All systems reviewed & are unremarkable except as noted in HPI and below Exam Narrative: Exam Narrative: Pleasant older man pleasantly confused Resp: Effort & Inspection: normal respiratory effort Auscultation: clear to auscultation bilaterally Percussion: percussion normal Cardio: Palpation: normal PMI Rate: regular rate Rhythm: abnormal rhythm Heart sounds: S1 normal heart sound present and S2 normal heart sound present Peripheral pulses: Peripheral pulses 2+ throughout Skin: General skin exam: normal color Wounds: wounds noted (Bilateral heels. Dressing dry and intact bilate
[2020-09-28] MEDS: WARFARIN (*PBKC) 3 MG TABLET PO (17:00)
[2020-09-28] MEDS: FINASTERIDE 5 MG TABLET PO (20:43)
[2020-09-28] MEDS: DONEPEZIL HCL 10 MG TABLET PO (20:43)
[2020-09-29] VITALS (17 sets, daily range): BP systolic 105–147; BP diastolic 66–92; PULSE 57–112; RESP 16–25; TEMP 36.1–37; O2SAT 93–100
[2020-09-29 05:44] LABS: Hematocrit 28.6 % (42.0-52.0); Mean Corpuscular HGB Conc 31.5 g/dl (32-36); Mean Corpuscular Hemoglobin 29.4 pg (26-34); Mean Corpuscular Volume 93.5 fl (80-100); Mean Platelet Volume 9.9 fl (7.4-10.4); Platelet Count Result 142 k/mm3 (150-375); Red Blood Count 3.06 M/mm3 (4.6-6.20); Red Cell Distribution Width 14.8 % (11.5-14.5); White Blood Count 6.9 K/mm3 (4.5-10.0)
[2020-09-29 05:51] LABS: INR 1.9
[2020-09-29] MEDS: CENTRAL LINE FLUSH 10 ML IV PUSH ×3 (06:01→17:10)
[2020-09-29 06:08] LABS: Alanine Aminotransferase 28 U/L (4-50); Albumin Level 2.4 g/dL (3.5-5.1); Alkaline Phosphatase 165 U/L (38-126); Anion Gap 3 mmol/L (8-16); Aspartate Amino Transferase 42 U/L (17-59); Bilirubin,Total 0.2 mg/dL (0.2-1.3); Blood Urea Nitrogen 18 mg/dL (9-20); Calcium 7.8 mg/dL (8.4-10.2); Carbon Dioxide 22 mmol/L (22-30); Chloride 111 mmol/L (98-107); Estimated CRCL calculation 58 ml/min; Estimated Glomerular Filt Rate > 60; Glucose 95 mg/dL (75-110); Potassium 3.5 mmol/L (3.4-5.0); Sodium 136 mmol/L (137-145)
--- NOTE | 2020-09-29 07:42 | WPDINTPN ---
Progress Note: A&P Assessment and Plan (1) Sepsis: Code(s): A41.9 - Sepsis, unspecified organism Status: Acute Assessment and Plan: Secondary to UTI Urine cultures growing coag-negative staph Blood culture pending. Continue empiric antibiotics -levaquin Hold further IV fluids Has not required vasopressors at this time (2) Acute UTI: Code(s): N39.0 - Urinary tract infection, site not specified Status: Acute Assessment and Plan: Urine culture coag-negative staph (3) CATE (acute kidney injury): Code(s): N17.9 - Acute kidney failure, unspecified Status: Acute Assessment and Plan: Likely pre renal from sepsis and dehydration Improved Hold further IV fluids (4) Encephalopathy acute: Code(s): G93.40 - Encephalopathy, unspecified Status: Acute Assessment and Plan: Likely toxic metabolic encephalopathy Head CT negative Improved (5) Afib: Qualifiers: Atrial fibrillation type: paroxysmal Qualified Code(s): I48.0 - Paroxysmal atrial fibrillation Code(s): I48.91 - Unspecified atrial fibrillation Status: Chronic Assessment and Plan: Is currently not in RVR Resume low-dose metoprolol Continue warfarin Monitor daily INR (6) Pressure ulcer of left heel: Code(s): L89.629 - Pressure ulcer of left heel, unspecified stage Status: Acute Assessment and Plan: Local from care. Wound Care consult X-ray did result noted (7) Pressure ulcer of right heel: Code(s): L89.619 - Pressure ulcer of right heel, unspecified stage Status: Acute Assessment and Plan: Local wound care. Wound Care consult X-ray result noted Additional Plan DVT prophylaxis - Warfarin Nutrition - Resume diet Code Status -patient is DNR Subjective Date/time seen: 09/29/20 07:15 PATIENT REMAINS PLEASANTLY CONFUSED He is awake but is unable to provide any meaningful history. He speaks random inappropriate words. He has remained off of Levophed and is on IV fluids Afebrile Vital signs stable Review of Systems Review of Systems: ROS unobtainable: Yes unobtainable due to medical condition Exam Narrative: Exam Narrative: General: Pt is alert awake and in NAD old demented frail male Lungs/Chest: Trachea central Clear BS B/L, No crackles or wheezing. Cardiac: RRR. Normal S1 S2. No murmurs Circulation: Pedal pulses are intact and symmetrical. Abdomen: Normal bowel sounds.. Soft. NT. ND. Extremities: No clubbing, cyanosis or edema. Warm, left femoral central venous catheter : Carter in place Neurologic: Follows commands. Moves all 4 extremities PERRL, A/O x1 NAME only Skin: No Rash, Erythema on shins, both heels have wounds under dressing, several old scabs and wounds in various healing stages on legs Objective Data Vital Signs Vital Signs: Vital Signs - 24 hr 09/28/20 08:00 09/28/20 10:00 09/28/20 12:00 Temperature 36.6 C 36.6 C Pulse Rate 108 H 99 96 Respiratory Rate 19 26 H 22 H Blood Pressure 105/85 96/69 L 114/82 Pulse Oximetry 100 100 100 09/28/20 14:00 09/28/20 16:00 09/28/20 18:00 Temperature 36.4 C L Pulse Rate 121 H 112 H 97 Respiratory Rate 23 H 20 25 H Blood Pressure 105/77 112/95 H 102/80 Pulse Oximetry 100 97 100 09/28/20 20:00 09/28/20 20:01 09/28/20 22:00 Temperature 36.4 C Pulse Rate 105 H 107 H 96 Respiratory Rate 25 H 15 Blood Pressure 105/81 105/82 Pulse Oximetry 100 96 09/28/20 23:11 09/29/20 00:00 09/29/20 02:00 Temperature 37.0 C Pulse Rate 97 106 H Respiratory Rate 16 19 Blood Pressure 119/87 111/66 Pulse Oximetry 98 100 98 09/29/20 04:00 09/29/20 04:01 09/29/20 06:00 Temperature 36.1 C L Pulse Rate 99 110 H 95 Respiratory Rate 25 H Blood Pressure 117/82 Pulse Oximetry 99 09/29/20 06:01 Temperature Pulse Rate 95 Respiratory Rate 17 Blood Pressure 111/87 Pulse Oximetry 100 Intake/Output Intak
[2020-09-29] MEDS: MEMANTINE 5 MG TABLET PO ×2 (08:17→19:54)
[2020-09-29] MEDS: THERAPEUTIC MULTIVITAMINS/MINERALS TAB (*BKC) 1 TABLET PO (08:17)
[2020-09-29] MEDS: METOPROLOL TARTRATE 12.5 MG TABLET PO ×2 (08:55→19:54)
--- NOTE | 2020-09-29 15:00 | PM.IMPN ---
Progress Note: A&P Assessment and Plan (1) Septic shock: Code(s): A41.9 - Sepsis, unspecified organism; R65.21 - Severe sepsis with septic shock Status: Acute Assessment and Plan: Patient was diagnosed with urinary tract infection he was started on Levaquin Flagyl stopped. Patient's lactic was normal. The central line is in the left femoral area. Blood culture and urine cultures are pending. wcc is nl, pt is off vasopressor can be transferred to the medical floor. (2) CATE (acute kidney injury): Code(s): N17.9 - Acute kidney failure, unspecified Status: Acute Assessment and Plan: creat is 1.0, Could be related to the sepsis. (3) Acute UTI: Code(s): N39.0 - Urinary tract infection, site not specified Status: Acute Assessment and Plan: Blood cultures and urine cultures are pending patient started on Levaquin (4) Pressure ulcer of right heel: Code(s): L89.619 - Pressure ulcer of right heel, unspecified stage Status: Acute Assessment and Plan: Wound care consult has been placed. We of applied Mepilex to both of the heels. (5) Pressure ulcer of left heel: Code(s): L89.629 - Pressure ulcer of left heel, unspecified stage Status: Acute Assessment and Plan: Wound care consult has been placed. We of applied Mepilex to both of the heels. (6) CHF (congestive heart failure): Qualifiers: Heart failure type: systolic Heart failure chronicity: chronic Qualified Code(s): I50.22 - Chronic systolic (congestive) heart failure Code(s): I50.9 - Heart failure, unspecified Status: Acute Assessment and Plan: Restart pts home medications (7) DVT prophylaxis: Code(s): Z29.9 - Encounter for prophylactic measures, unspecified Status: Acute Assessment and Plan: INR is 1.9, Continue with coumadin (8) Dementia: Qualifiers: Dementia type: Alzheimer's Alzheimer's disease onset: unspecified onset Dementia behavioral disturbance: without behavioral disturbance Qualified Code(s): G30.9 - Alzheimer's disease, unspecified; F02.80 - Dementia in other diseases classified elsewhere without behavioral disturbance Code(s): F03.90 - Unspecified dementia without behavioral disturbance Status: Acute Assessment and Plan: Continue with Namenda. (9) Systolic CHF, acute on chronic: Code(s): I50.23 - Acute on chronic systolic (congestive) heart failure Status: Acute Assessment and Plan: Continue patients lasix and metoprolol (10) Afib: Qualifiers: Atrial fibrillation type: paroxysmal Qualified Code(s): I48.0 - Paroxysmal atrial fibrillation Code(s): I48.91 - Unspecified atrial fibrillation Status: Chronic Assessment and Plan: Metoprolol to cont. Continue with Coumadin. Subjective Date/time seen: 09/29/20 15:00 Interval history: 79 year old male patient who is from [facility]. The patient has end-stage dementia and typically yells out. The patient was nonverbal today and the staff consider this a altered mental status change. Pt admitted for septic shock history of dementia and chf. Pt is off vasopressors Bp is stable, pt can be transferred to the medical floor. Review of Systems Review of Systems: All systems reviewed & are unremarkable except as noted in HPI and below Exam Narrative: Exam Narrative: Pleasant older man pleasantly confused Const: Orientation/consciousness: oriented to person Resp: Effort & Inspection: normal respiratory effort Auscultation: clear to auscultation bilaterally Percussion: percussion normal Cardio: Palpation: normal PMI Rate: regular rate Rhythm: abnormal rhythm Heart sounds: S1 normal heart sound present and S2 normal heart sound present Peripheral pulses: Peripheral pulses 2+ throughout Skin: General skin exam: normal color Wounds: wounds noted (Bilateral heels. Dress
[2020-09-29] MEDS: WARFARIN (*PBKC) 3 MG TABLET PO (17:10)
--- NOTE | 2020-09-29 18:35 | PC.NURSE ---
This patient, Abraham Garland, was received from [ICU] on 09/29/20 at 1855. Patient/family oriented to unit policies and routines
--- NOTE | 2020-09-29 19:05 | PC.NURSE ---
This patient, Abraham Garland, was transferred to [ 321] on 09/29/20 at 1900. Personal belongings sent with patient. Report given to [Ami ]. Appropriate documentation sent with patient.
[2020-09-29] MEDS: DONEPEZIL HCL 10 MG TABLET PO (19:53)
[2020-09-29] MEDS: FINASTERIDE 5 MG TABLET PO (19:54)
[2020-09-30] VITALS (12 sets, daily range): BP systolic 96–116; BP diastolic 71–84; PULSE 61–112; RESP 16–18; TEMP 36.2–36.6; O2SAT 98–100
[2020-09-30 06:21] LABS: Hematocrit 28.8 % (42.0-52.0); Hemoglobin 9.3 g/dL (14.0-18.0); Mean Corpuscular HGB Conc 32.3 g/dl (32-36); Mean Corpuscular Hemoglobin 28.5 pg (26-34); Mean Corpuscular Volume 88.3 fl (80-100); Mean Platelet Volume 10.1 fl (7.4-10.4); Platelet Count Result 157 k/mm3 (150-375); Red Blood Count 3.26 M/mm3 (4.6-6.20); Red Cell Distribution Width 14.6 % (11.5-14.5); White Blood Count 6.4 K/mm3 (4.5-10.0)
[2020-09-30 06:33] LABS: INR 1.8; Prothrombin Time 21.6 Seconds (11.1-14.7)
[2020-09-30 06:36] LABS: Alanine Aminotransferase 27 U/L (4-50); Albumin Level 2.5 g/dL (3.5-5.1); Alkaline Phosphatase 173 U/L (38-126); Anion Gap 2 mmol/L (8-16); Aspartate Amino Transferase 36 U/L (17-59); Bilirubin,Total 0.3 mg/dL (0.2-1.3); Blood Urea Nitrogen 14 mg/dL (9-20); Calcium 7.9 mg/dL (8.4-10.2); Carbon Dioxide 23 mmol/L (22-30); Chloride 111 mmol/L (98-107); Estimated CRCL calculation 58 ml/min; Estimated Glomerular Filt Rate > 60; Glucose 94 mg/dL (75-110); Potassium 3.6 mmol/L (3.4-5.0); Sodium 136 mmol/L (137-145)
[2020-09-30] MEDS: METOPROLOL TARTRATE 12.5 MG TABLET PO ×2 (08:57→22:31)
[2020-09-30] MEDS: MEMANTINE 5 MG TABLET PO ×2 (08:57→22:31)
[2020-09-30] MEDS: THERAPEUTIC MULTIVITAMINS/MINERALS TAB (*BKC) 1 TABLET PO (08:57)
--- NOTE | 2020-09-30 13:25 | PM.IMPN ---
Progress Note: A&P Assessment and Plan (1) Septic shock: Code(s): A41.9 - Sepsis, unspecified organism; R65.21 - Severe sepsis with septic shock Status: Acute Assessment and Plan: Patient was diagnosed with urinary tract infection he was started on Levaquin Flagyl stopped. Patient's lactic was normal. The central line is in the left femoral area. Blood culture and urine cultures are pending. wcc is nl, cultures good. (2) CATE (acute kidney injury): Code(s): N17.9 - Acute kidney failure, unspecified Status: Resolved Assessment and Plan: creat is 1.0, Could be related to the sepsis. (3) Acute UTI: Code(s): N39.0 - Urinary tract infection, site not specified Status: Acute Assessment and Plan: Blood cultures and urine cultures are pending patient started on Levaquin, cultures are good. (4) Pressure ulcer of right heel: Code(s): L89.619 - Pressure ulcer of right heel, unspecified stage Status: Acute Assessment and Plan: Wound care consult has been placed. We of applied Mepilex to both of the heels. (5) Pressure ulcer of left heel: Code(s): L89.629 - Pressure ulcer of left heel, unspecified stage Status: Acute Assessment and Plan: Wound care consult has been placed. We of applied Mepilex to both of the heels. (6) CHF (congestive heart failure): Qualifiers: Heart failure type: systolic Heart failure chronicity: chronic Qualified Code(s): I50.22 - Chronic systolic (congestive) heart failure Code(s): I50.9 - Heart failure, unspecified Status: Acute Assessment and Plan: Restart pts home medications (7) DVT prophylaxis: Code(s): Z29.9 - Encounter for prophylactic measures, unspecified Status: Acute Assessment and Plan: INR is 1.9, Continue with coumadin (8) Dementia: Qualifiers: Dementia type: Alzheimer's Alzheimer's disease onset: unspecified onset Dementia behavioral disturbance: without behavioral disturbance Qualified Code(s): G30.9 - Alzheimer's disease, unspecified; F02.80 - Dementia in other diseases classified elsewhere without behavioral disturbance Code(s): F03.90 - Unspecified dementia without behavioral disturbance Status: Acute Assessment and Plan: Continue with Namenda. (9) Systolic CHF, acute on chronic: Code(s): I50.23 - Acute on chronic systolic (congestive) heart failure Status: Acute Assessment and Plan: Continue patients lasix and metoprolol (10) Afib: Qualifiers: Atrial fibrillation type: paroxysmal Qualified Code(s): I48.0 - Paroxysmal atrial fibrillation Code(s): I48.91 - Unspecified atrial fibrillation Status: Chronic Assessment and Plan: Metoprolol to cont. Continue with Coumadin. Subjective Date/time seen: 09/30/20 13:25 Interval history: 79 year old male patient who is from [facility]. The patient has end-stage dementia and typically yells out. The patient was nonverbal today and the staff consider this a altered mental status change. Pt admitted for septic shock history of dementia and chf. Pt is getting better Pt to start theraphy today. Review of Systems Review of Systems: All systems reviewed & are unremarkable except as noted in HPI and below Exam Narrative: Exam Narrative: Pleasant older man pleasantly confused Const: Orientation/consciousness: oriented to person Eyes: Pupils: Equal, round and reactive pupils present Resp: Effort & Inspection: normal respiratory effort Auscultation: clear to auscultation bilaterally Percussion: percussion normal Cardio: Palpation: normal PMI Rate: regular rate Rhythm: abnormal rhythm Heart sounds: S1 normal heart sound present and S2 normal heart sound present Peripheral pulses: Peripheral pulses 2+ throughout Skin: General skin exam: normal color Wounds: wounds noted (Bilateral heels. Dressi
[2020-09-30] MEDS: WARFARIN (*PBKC) 3 MG TABLET PO (17:26)
[2020-09-30] MEDS: FINASTERIDE 5 MG TABLET PO (22:31)
[2020-09-30] MEDS: DONEPEZIL HCL 10 MG TABLET PO (22:35)
[2020-10-01] VITALS (11 sets, daily range): BP systolic 109–116; BP diastolic 78–88; PULSE 80–115; RESP 20–22; TEMP 36.2–36.7; O2SAT 93–100
[2020-10-01 05:55] LABS: Hematocrit 32.6 % (42.0-52.0); Hemoglobin 10.2 g/dL (14.0-18.0); Mean Corpuscular HGB Conc 31.3 g/dl (32-36); Mean Corpuscular Hemoglobin 28.8 pg (26-34); Mean Corpuscular Volume 92.1 fl (80-100); Mean Platelet Volume 10.4 fl (7.4-10.4); Platelet Count Result 194 k/mm3 (150-375); Red Blood Count 3.54 M/mm3 (4.6-6.20); Red Cell Distribution Width 14.6 % (11.5-14.5); White Blood Count 8.2 K/mm3 (4.5-10.0)
[2020-10-01 06:02] LABS: Alanine Aminotransferase 29 U/L (4-50); Albumin Level 2.7 g/dL (3.5-5.1); Alkaline Phosphatase 181 U/L (38-126); Anion Gap 3 mmol/L (8-16); Aspartate Amino Transferase 42 U/L (17-59); Bilirubin,Total 0.4 mg/dL (0.2-1.3); Blood Urea Nitrogen 22 mg/dL (9-20); Calcium 8.3 mg/dL (8.4-10.2); Carbon Dioxide 25 mmol/L (22-30); Chloride 108 mmol/L (98-107); Estimated CRCL calculation 53 ml/min; Estimated Glomerular Filt Rate > 60; Glucose 97 mg/dL (75-110); Magnesium 2.1 mg/dL (1.6-2.3); Potassium 3.8 mmol/L (3.4-5.0); Sodium 136 mmol/L (137-145)
[2020-10-01 06:03] LABS: INR 1.8; Prothrombin Time 21.2 Seconds (11.1-14.7)
[2020-10-01] MEDS: METOPROLOL TARTRATE 12.5 MG TABLET PO ×2 (08:29→20:05)
[2020-10-01] MEDS: MEMANTINE 5 MG TABLET PO ×2 (08:31→20:06)
[2020-10-01] MEDS: THERAPEUTIC MULTIVITAMINS/MINERALS TAB (*BKC) 1 TABLET PO (08:31)
--- NOTE | 2020-10-01 14:33 | PM.IMPN ---
Progress Note: A&P Assessment and Plan (1) Septic shock: Code(s): A41.9 - Sepsis, unspecified organism; R65.21 - Severe sepsis with septic shock Status: Acute Assessment and Plan: Patient was diagnosed with urinary tract infection he was started on Levaquin Flagyl stopped. Patient's lactic was normal. The central line is in the left femoral area. Blood culture and urine cultures are pending. wcc is nl, cultures good. (2) CATE (acute kidney injury): Code(s): N17.9 - Acute kidney failure, unspecified Status: Resolved Assessment and Plan: creat is 1.0, Could be related to the sepsis. (3) Acute UTI: Code(s): N39.0 - Urinary tract infection, site not specified Status: Acute Assessment and Plan: Blood cultures and urine cultures are pending patient started on Levaquin, cultures are good. (4) Pressure ulcer of right heel: Code(s): L89.619 - Pressure ulcer of right heel, unspecified stage Status: Acute Assessment and Plan: Wound care consult has been placed. We of applied Mepilex to both of the heels. (5) Pressure ulcer of left heel: Code(s): L89.629 - Pressure ulcer of left heel, unspecified stage Status: Acute Assessment and Plan: Wound care consult has been placed. We of applied Mepilex to both of the heels. (6) CHF (congestive heart failure): Qualifiers: Heart failure type: systolic Heart failure chronicity: chronic Qualified Code(s): I50.22 - Chronic systolic (congestive) heart failure Code(s): I50.9 - Heart failure, unspecified Status: Acute Assessment and Plan: Restart pts home medications (7) DVT prophylaxis: Code(s): Z29.9 - Encounter for prophylactic measures, unspecified Status: Acute Assessment and Plan: INR is 1.9, Continue with coumadin (8) Dementia: Qualifiers: Dementia type: Alzheimer's Alzheimer's disease onset: unspecified onset Dementia behavioral disturbance: without behavioral disturbance Qualified Code(s): G30.9 - Alzheimer's disease, unspecified; F02.80 - Dementia in other diseases classified elsewhere without behavioral disturbance Code(s): F03.90 - Unspecified dementia without behavioral disturbance Status: Acute Assessment and Plan: Continue with Namenda. (9) Systolic CHF, acute on chronic: Code(s): I50.23 - Acute on chronic systolic (congestive) heart failure Status: Acute Assessment and Plan: Continue patients lasix and metoprolol (10) Afib: Qualifiers: Atrial fibrillation type: paroxysmal Qualified Code(s): I48.0 - Paroxysmal atrial fibrillation Code(s): I48.91 - Unspecified atrial fibrillation Status: Chronic Assessment and Plan: Metoprolol to cont. Continue with Coumadin. Subjective Date/time seen: 10/01/20 14:33 Interval history: 79 year old male patient who is from [facility]. The patient has end-stage dementia and typically yells out. The patient was nonverbal today and the staff consider this a altered mental status change. Pt admitted for septic shock history of dementia and chf. Pt is getting better Pt to start theraphy today. Cultures are good, dc chad after covid test. Review of Systems Review of Systems: All systems reviewed & are unremarkable except as noted in HPI and below ROS unobtainable: Yes unobtainable due to mental status Exam Narrative: Exam Narrative: Pleasant older man pleasantly confused Const: Orientation/consciousness: oriented to person Eyes: Pupils: Equal, round and reactive pupils present Resp: Effort & Inspection: normal respiratory effort Auscultation: clear to auscultation bilaterally Percussion: percussion normal Cardio: Palpation: normal PMI Rate: regular rate Rhythm: abnormal rhythm Heart sounds: S1 normal heart sound present and S2 normal heart sound present Peripheral pulses: Peripheral pulses 2
[2020-10-01 15:46] LABS: INR 1.6; Prothrombin Time 19.7 Seconds (11.1-14.7)
[2020-10-01] MEDS: WARFARIN (*PBKC) 3 MG TABLET PO (16:28)
[2020-10-01] MEDS: DONEPEZIL HCL 10 MG TABLET PO (20:05)
[2020-10-01] MEDS: FINASTERIDE 5 MG TABLET PO (20:06)
[2020-10-02] VITALS (12 sets, daily range): BP systolic 113–138; BP diastolic 69–88; PULSE 60–113; RESP 17–18; TEMP 36.4–36.7; O2SAT 93–98
[2020-10-02 06:03] LABS: Hematocrit 34.7 % (42.0-52.0); Hemoglobin 11.1 g/dL (14.0-18.0); Mean Corpuscular Hemoglobin 29.2 pg (26-34); Mean Corpuscular Volume 91.3 fl (80-100); Mean Platelet Volume 10.3 fl (7.4-10.4); Platelet Count Result 185 k/mm3 (150-375); Red Cell Distribution Width 14.6 % (11.5-14.5); White Blood Count 10.2 K/mm3 (4.5-10.0)
[2020-10-02 06:10] LABS: Alanine Aminotransferase 26 U/L (4-50); Albumin Level 2.8 g/dL (3.5-5.1); Alkaline Phosphatase 173 U/L (38-126); Anion Gap 6 mmol/L (8-16); Aspartate Amino Transferase 31 U/L (17-59); Bilirubin,Total 0.4 mg/dL (0.2-1.3); Blood Urea Nitrogen 20 mg/dL (9-20); Carbon Dioxide 24 mmol/L (22-30); Chloride 108 mmol/L (98-107); Estimated CRCL calculation 64 ml/min; Estimated Glomerular Filt Rate > 60; Glucose 93 mg/dL (75-110); Magnesium 2.1 mg/dL (1.6-2.3); Potassium 3.6 mmol/L (3.4-5.0); Sodium 138 mmol/L (137-145)
[2020-10-02 06:13] LABS: INR 1.7; Prothrombin Time 20.7 Seconds (11.1-14.7)
--- NOTE | 2020-10-02 07:40 | ECG_ITS ---
Measurements Intervals [place] Rate: 93 P: MT: 0 QRS: -54 QRSD: 117 T: -7 QT: 388 QTc: 483 Interpretive Statements ATRIAL FIBRILLATION LEFT ANTERIOR FASCICULAR BLOCK POOR R WAVE PROGRESSION, ANTERIOR LEADS BORDERLINE T WAVE ABNORMALITY- INFERIOR LEADS BASELINE ARTIFACT- I, III, AVR, AVL, V6 ABNORMAL ECG Electronically Signed On 10-02-2020 8:22:09 CDT by Scott Sanabria D.O.
[2020-10-02] MEDS: POTASSIUM CHLORIDE 20 MEQ TABLET 40 MEQ PO (07:57)
[2020-10-02] MEDS: THERAPEUTIC MULTIVITAMINS/MINERALS TAB (*BKC) 1 TABLET PO (08:03)
[2020-10-02] MEDS: METOPROLOL TARTRATE 12.5 MG TABLET PO ×2 (08:03→21:35)
[2020-10-02] MEDS: MEMANTINE 5 MG TABLET PO ×2 (08:04→21:35)
--- NOTE | 2020-10-02 11:50 | PCNFU ---
Nutrition Follow-Up Complete: Increased protein/kcal needs related to increased demands for healing as evidenced by unstageable areas on heels. Goal: Patient to consume 75% of meals/supplements or greater. Patient is progressing towards goal. We will continue current goal. Pt current nutrition is Heart Healthy with Beni BID. Last recorded weight is 84.7 kg, no new weight to report. Bowel Motility:+BM reported 10/01 Labs Reviewed:Alb 2.8,Hgb 11.1,Hct 34.7 Meds Noted:Coumadin,Lopressor,Proscar,MVI,Aricept. Additional Notes: Nutrition follow up. Patient seen today. Ate 95% of heart healthy tray for breakfast. Wounds: pressure ulcer unstageable on right and left heels. diet supplement: Beni BID for wound healing. Agree with diet orders. Monitoring: Follow up every 5 days.
--- NOTE | 2020-10-02 14:26 | PM.IMPN ---
Progress Note: A&P Assessment and Plan (1) Septic shock: Code(s): A41.9 - Sepsis, unspecified organism; R65.21 - Severe sepsis with septic shock Status: Acute Assessment and Plan: Patient was diagnosed with urinary tract infection he was started on Levaquin Flagyl stopped. Patient's lactic was normal. The central line is in the left femoral area. Blood culture and urine cultures are pending. wcc is nl, cultures good. 10/02/20 14:26 Patient was diagnosed with urinary tract infection he was started on Levaquin Flagyl stopped. Patient's lactic was normal. The central line is in the left femoral area. Blood culture and urine cultures are pending. wcc is nl, cultures good. Patient urine cultures is coagulase negative staph less than 50,000, most likely patient does not true infection will stop antibiotic, early this morning early this morningOn telemetry patient had a run of V-tach patient remains clinically stable had no complaint of chest pain repeat EKG showed atrial fibrillation similar to EKG done upon arrival, patient remains clinically stable will continue to monitor and possibly do the discharge planning tomorrow. (2) CATE (acute kidney injury): Code(s): N17.9 - Acute kidney failure, unspecified Status: Resolved Assessment and Plan: creat is 1.0, Could be related to the sepsis. (3) Acute UTI: Code(s): N39.0 - Urinary tract infection, site not specified Status: Acute Assessment and Plan: Blood cultures and urine cultures are pending patient started on Levaquin, cultures are good. (4) Pressure ulcer of right heel: Code(s): L89.619 - Pressure ulcer of right heel, unspecified stage Status: Acute Assessment and Plan: Wound care consult has been placed. We of applied Mepilex to both of the heels. (5) Pressure ulcer of left heel: Code(s): L89.629 - Pressure ulcer of left heel, unspecified stage Status: Acute Assessment and Plan: Wound care consult has been placed. We of applied Mepilex to both of the heels. (6) CHF (congestive heart failure): Qualifiers: Heart failure type: systolic Heart failure chronicity: chronic Qualified Code(s): I50.22 - Chronic systolic (congestive) heart failure Code(s): I50.9 - Heart failure, unspecified Status: Acute Assessment and Plan: Restart pts home medications (7) DVT prophylaxis: Code(s): Z29.9 - Encounter for prophylactic measures, unspecified Status: Acute Assessment and Plan: INR is 1.9, Continue with coumadin (8) Dementia: Qualifiers: Dementia type: Alzheimer's Alzheimer's disease onset: unspecified onset Dementia behavioral disturbance: without behavioral disturbance Qualified Code(s): G30.9 - Alzheimer's disease, unspecified; F02.80 - Dementia in other diseases classified elsewhere without behavioral disturbance Code(s): F03.90 - Unspecified dementia without behavioral disturbance Status: Acute Assessment and Plan: Continue with Namenda. (9) Systolic CHF, acute on chronic: Code(s): I50.23 - Acute on chronic systolic (congestive) heart failure Status: Acute Assessment and Plan: Continue patients lasix and metoprolol (10) Afib: Qualifiers: Atrial fibrillation type: paroxysmal Qualified Code(s): I48.0 - Paroxysmal atrial fibrillation Code(s): I48.91 - Unspecified atrial fibrillation Status: Chronic Assessment and Plan: Metoprolol to cont. Continue with Coumadin. Patient's INR is sub therapeutic currently patient is taking warfarin 3 mg daily will increased 4 mg on , , and , and rest of the week 3 mg, will continue to monitor Subjective Date/time seen: 10/02/20 14:26 Patient was diagnosed with urinary tract infection he was started on Levaquin Flagyl stopped. Patient's lactic was normal. The central line is in the left femoral area. Blood cu
[2020-10-02 15:19] LABS: INR 1.6; Prothrombin Time 19.5 Seconds (11.1-14.7)
[2020-10-02] MEDS: WARFARIN (*PBKC) 4 MG TABLET PO (16:34)
[2020-10-02] MEDS: DONEPEZIL HCL 10 MG TABLET PO (21:34)
[2020-10-02] MEDS: FINASTERIDE 5 MG TABLET PO (21:35)
[2020-10-03] VITALS (7 sets, daily range): BP systolic 138–142; BP diastolic 70–85; PULSE 73–106; RESP 18; TEMP 36.7–37; O2SAT 96–99
[2020-10-03 06:35] LABS: Hematocrit 33.6 % (42.0-52.0); Hemoglobin 10.8 g/dL (14.0-18.0); Mean Corpuscular HGB Conc 32.1 g/dl (32-36); Mean Corpuscular Hemoglobin 29.1 pg (26-34); Mean Corpuscular Volume 90.6 fl (80-100); Mean Platelet Volume 10.4 fl (7.4-10.4); Platelet Count Result 201 k/mm3 (150-375); Red Blood Count 3.71 M/mm3 (4.6-6.20); Red Cell Distribution Width 14.8 % (11.5-14.5)
[2020-10-03 06:46] LABS: Alanine Aminotransferase 21 U/L (4-50); Albumin Level 2.9 g/dL (3.5-5.1); Alkaline Phosphatase 174 U/L (38-126); Anion Gap 4 mmol/L (8-16); Aspartate Amino Transferase 28 U/L (17-59); Bilirubin,Total 0.6 mg/dL (0.2-1.3); Blood Urea Nitrogen 21 mg/dL (9-20); Calcium 8.2 mg/dL (8.4-10.2); Carbon Dioxide 25 mmol/L (22-30); Chloride 107 mmol/L (98-107); Estimated CRCL calculation 64 ml/min; Estimated Glomerular Filt Rate > 60; Glucose 92 mg/dL (75-110); Magnesium 2.1 mg/dL (1.6-2.3); Potassium 4.2 mmol/L (3.4-5.0); Sodium 136 mmol/L (137-145)
[2020-10-03 06:49] LABS: INR 1.7; Prothrombin Time 20.3 Seconds (11.1-14.7)
--- NOTE | 2020-10-03 09:43 | PM.DS ---
DS: Admitting Diagnosis Admitting Diagnosis Admitting Diagnosis: Chief Complaint: Sepsis DS: Discharge Diagnosis Discharge Diagnosis (1) Septic shock: Code(s): A41.9 - Sepsis, unspecified organism; R65.21 - Severe sepsis with septic shock Status: Acute Assessment and Plan: Patient was diagnosed with urinary tract infection he was started on Levaquin Flagyl stopped. Patient's lactic was normal. The central line is in the left femoral area. Blood culture and urine cultures are pending. wcc is nl, cultures good. 10/02/20 14:26 Patient was diagnosed with urinary tract infection he was started on Levaquin Flagyl stopped. Patient's lactic was normal. The central line is in the left femoral area. Blood culture and urine cultures are pending. wcc is nl, cultures good. Patient urine cultures is coagulase negative staph less than 50,000, most likely patient does not true infection will stop antibiotic, early this morning early this morningOn telemetry patient had a run of V-tach patient remains clinically stable had no complaint of chest pain repeat EKG showed atrial fibrillation similar to EKG done upon arrival, patient remains clinically stable will continue to monitor and possibly do the discharge planning tomorrow. (2) CATE (acute kidney injury): Code(s): N17.9 - Acute kidney failure, unspecified Status: Resolved Assessment and Plan: creat is 1.0, Could be related to the sepsis. (3) Acute UTI: Code(s): N39.0 - Urinary tract infection, site not specified Status: Acute Assessment and Plan: Blood cultures and urine cultures are pending patient started on Levaquin, cultures are good. (4) Pressure ulcer of right heel: Code(s): L89.619 - Pressure ulcer of right heel, unspecified stage Status: Acute Assessment and Plan: Wound care consult has been placed. We of applied Mepilex to both of the heels. (5) Pressure ulcer of left heel: Code(s): L89.629 - Pressure ulcer of left heel, unspecified stage Status: Acute Assessment and Plan: Wound care consult has been placed. We of applied Mepilex to both of the heels. (6) CHF (congestive heart failure): Qualifiers: Heart failure type: systolic Heart failure chronicity: chronic Qualified Code(s): I50.22 - Chronic systolic (congestive) heart failure Code(s): I50.9 - Heart failure, unspecified Status: Acute Assessment and Plan: Restart pts home medications (7) DVT prophylaxis: Code(s): Z29.9 - Encounter for prophylactic measures, unspecified Status: Acute Assessment and Plan: INR is 1.9, Continue with coumadin (8) Dementia: Qualifiers: Dementia type: Alzheimer's Alzheimer's disease onset: unspecified onset Dementia behavioral disturbance: without behavioral disturbance Qualified Code(s): G30.9 - Alzheimer's disease, unspecified; F02.80 - Dementia in other diseases classified elsewhere without behavioral disturbance Code(s): F03.90 - Unspecified dementia without behavioral disturbance Status: Acute Assessment and Plan: Continue with Namenda. (9) Systolic CHF, acute on chronic: Code(s): I50.23 - Acute on chronic systolic (congestive) heart failure Status: Acute Assessment and Plan: Continue patients lasix and metoprolol (10) Afib: Qualifiers: Atrial fibrillation type: paroxysmal Qualified Code(s): I48.0 - Paroxysmal atrial fibrillation Code(s): I48.91 - Unspecified atrial fibrillation Status: Chronic Assessment and Plan: Metoprolol to cont. Continue with Coumadin. Patient's INR is sub therapeutic currently patient is taking warfarin 3 mg daily will increased 4 mg on , , and , and rest of the week 3 mg, will continue to monitor DS: Summary Hospital Course Reason for hospitalization: this is a 79 year old male patient who is from [facility]
[2020-10-03] MEDS: THERAPEUTIC MULTIVITAMINS/MINERALS TAB (*BKC) 1 TABLET PO (09:59)
[2020-10-03] MEDS: MEMANTINE 5 MG TABLET PO (09:59)
[2020-10-03] MEDS: METOPROLOL TARTRATE 12.5 MG TABLET PO (09:59)
[2020-10-03 12:47] LABS: SARS-CoV-2 RNA PCR Negative
--- NOTE | 2020-10-04 05:57 | WPDCDIQUERY2 ---
CDI Query Clarification Request -Sepsis and septic shock due to UTI documented in H&P and in progress notes until 10/01 -10/02 you have documented, Patient urine cultures is coagulase negative staph less than 50,000, most likely patient does not true infection will stop antibiotic If UTI has been ruled out, please clarify cause of sepsis/septic shock. If no infection found, please clarify if sepsis/septic shock was ruled in or ruled out. <Briseyda Floyd RN - Last Filed: 10/04/20 06:00> Clarified Diagnosis (1) Sepsis: Code(s): A41.9 - Sepsis, unspecified organism <Briseyda Floyd RN - Last Filed: 10/04/20 06:00> Status: Acute <Briseyda Floyd RN - Last Filed: 10/04/20 06:00> Assessment and Plan: Upon arrival there was suspicion for sepsis secondary to UTI however there was no true infection for UTI and it was ruled out and patient did not have a sepsis <Anne Blancas MD - Last Filed: 10/21/20 17:27>
== END 2020-10-03 14:40 | DRG 871 ==
LOC: ANHED 13:57 → ANHICU 18:26 → ANH3MEDSUR 10-01 09:23 → ANHICU 10-09 10:58 → ANH3MEDSUR 10-09 10:58
PROVIDERS: Internal Medicine; Nurse Practitioner; Admitting Provider Family Medicine; Emergency Provider General Practice; PCP Family Medicine; Visit Provider Family Medicine
DX: A41.9 Sepsis, unspecified organism (principal); R65.21 Severe sepsis with septic shock; I50.23 Acute on chronic systolic (congestive) heart failure; N17.9 Acute kidney failure, unspecified; N39.0 Urinary tract infection, site not specified; Z20.822 Contact with and (suspected) exposure to COVID-19; I11.0 Hypertensive heart disease with heart failure; I48.0 Paroxysmal atrial fibrillation; G30.9 Alzheimer's disease, unspecified; F02.80 Dementia in other diseases classified elsewhere, unspecified severity, without behavioral disturbance, psychotic disturbance, mood disturbance, and anxiety; N40.0 Benign prostatic hyperplasia without lower urinary tract symptoms; L89.619 Pressure ulcer of right heel, unspecified stage; L89.629 Pressure ulcer of left heel, unspecified stage; Z66 Do not resuscitate; Z79.01 Long term (current) use of anticoagulants; Z79.899 Other long term (current) drug therapy
CPT/HCPCS: 36415; 36556; 36600; 51701; 70450; 71045; 73630; 80053; 81001; 82375; 82805; 82948; 83050; 83605; 83735; 83880; 85025; 85027; 85046; 85610; 85730; 87040; 87077; 87086; 87088; 93005; 96361; 96365; 96367; 97161; 97165; 97530; 99291; A9270; C1751; C9803; J0696; J1650; J1956; J7030; J7040; J7120; U0003; U0005

== ENCOUNTER 2020-11-27 16:42 | Inpatient (IN) | payer OTHER, SELFPAY ==
[2020-11-27] VITALS (12 sets, daily range): BP systolic 92–136; BP diastolic 55–91; PULSE 60–126; RESP 12–29; TEMP 36.8–38.7; O2SAT 87–100; BMI 25.0
--- NOTE | ~2020-11-27 | XR_ITS ---
EXAMINATION: XR foot RT 2V EXAM DATE: 11/27/2020 21:37 INDICATION: Ulcer on right heel . TECHNIQUE: Frontal and lateral projections of the right foot. Comparison is made to prior examinatio n from 09/27/2020. FINDINGS: There is mild to moderate polyarticular right foot primary osteoarthritis. Some periarti cular osteopenia. Swelling over the forefoot. Vascular calcifications. There are no bony erosions joanne ntified. There are no acute fractures identified. No radiopaque foreign bodies identified. IMPRESSION: 1. Forefoot soft tissue swelling. 2. Other chronic findings unchanged. Reviewed, dictated and finalized at location G.
--- NOTE | ~2020-11-27 | XR_ITS ---
EXAMINATION: XR foot LT 2V EXAM DATE: 11/27/2020 21:37 INDICATION: Bilateral heel pressure ulcers. TECHNIQUE: Frontal and lateral projections of the left foot. Comparison is made to prior examination from 09/27/2020. FINDINGS: Some periarticular osteopenia. There are no acute left fractures or dislocations identified . There is no subcutaneous gas. Identification of ulcer along the heel posteriorly. No underlying c alcaneal erosive change. Mild polyarticular primary osteoarthritis. Vascular calcifications. There a re no radiopaque foreign bodies. IMPRESSION: Left heel soft tissue ulceration, edema. Reviewed, dictated and finalized at location .
--- NOTE | ~2020-11-27 | XR_ITS ---
EXAMINATION: XR hip BI 2V w AP pelvis EXAM DATE: 11/29/2020 14:56 INDICATION: Pain, swelling to distal right lower leg. TECHNIQUE: Each hip imaged independently (separate right and also left hip) 'frog leg' and frontal p rojections for interpretation. Frontal projection pelvis. Comparison is made to prior examination fr om 05/24/2018. FINDINGS: No radiographic evidence of hip avascular necrosis. There are no acute fractures or disloc ations identified. There is no subcutaneous gas. The soft tissue is unremarkable. There are no ra diopaque foreign bodies. There is mild to moderate symmetric bilateral hip primary osteoarthritis. A ccounting for differences in technique, there is no significant interval change. IMPRESSION: Mild to moderate symmetric bilateral hip osteoarthritis. Reviewed, dictated and finalized at location A.
--- NOTE | ~2020-11-27 | CT_ITS ---
EXAMINATION: CT LE RT wo con EXAM DATE: 11/28/2020 17:46 INDICATION: Severe pain, erythema right lower extremity, on warfarin. TECHNIQUE: Spiral CTA right lower extremity was performed without contrast. Axial, coronal and sagi ttal images were reviewed. Reportedly patient declined holding still for examination, was scanned tw ice. The dose-length product (DLP) for this examination was 2115.04 mGy-cm. The exposure was tailore d according to patient size (auto mA exposure control), and iterative reconstruction (ASIR) was used as additional dose reduction technique. Correlation is made to right foot x-ray from yesterday. FINDINGS: The toes were excluded from the exam. Motion at the mid calf region, with changes in angul ation of the right tibia and fibula probably due to patient motion causing discontinuity of these bon es on this exam. There is diffuse edema of the calf and foot. There is also edema along the anterior tibialis muscle, could be myositis or edema surrounding this muscle group. No focal abscess suspected. Only small port ion of the knee was imaged. No abscess identified. Multiple lucencies throughout the right forefoot c onsistent with focal regions of osteopenia. There is talar dome osteochondritis desiccation. No acute osseous erosion identified. IMPRESSION: 1. Limited due to patient motion (scan performed twice). 2. Right tibia and fibular shaft angulation, discontinuity likely from motion. 3. Extensive subcutaneous edema, and also surrounding anterior tibialis, possible myositis (check CK levels). 4. Talar dome osteochondritis desiccation. 5. Foot osteopenia. Reviewed, dictated and finalized at location A. IMPRESSION: 1. Limited due to patient motion (scan performed twice). 2. Right tibia and fibular shaft angulation, discontinuity likely from motion. 3. Extensive subcutaneous edema, and also surrounding anterior tibialis, possi ble myositis (check CK levels). 4. Talar dome osteochondritis desiccation. 5. Foot osteopenia.
--- NOTE | ~2020-11-27 | XR_ITS ---
EXAMINATION: XR tibia fibula RT 2V EXAM DATE: 11/29/2020 14:56 INDICATION: Pain, swelling, redness distal lower leg. TECHNIQUE: Right tibia/fibula frontal and lateral projections obtained and reviewed. Correlation is m randolph to CT scan from yesterday. FINDINGS: Right tibial and fibular shafts unremarkable. There is no subcutaneous gas. There is swel ling over the leg and foot. There are arterial calcifications, arteriosclerosis. Osteoarthritis at th e knee, ankle, mid and hindfoot.. There are no radiopaque foreign bodies. IMPRESSION: 1. XR tibia fibula RT 2V exam without acute osseous findings. 2. Soft tissue swelling. 3. Osteoarthritis. Reviewed, dictated and finalized at location A.
--- NOTE | ~2020-11-27 | XR_ITS ---
EXAMINATION: XR chest 1V portable EXAM DATE: 11/27/2020 18:40 INDICATION: Fever, cough. Transient alteration of awareness. TECHNIQUE: Portable AP frontal chest x-ray was obtained. Comparison is made to prior examination from 09/27/2020. FINDINGS: Patient is rotated to the right. This is could be the cause of diffuse increased density ov er the right lung and relative lucency over the left lung. No confluent consolidation, pneumothorax o r pleural effusion suspected. There is cardiomegaly and pulmonary vascular congestion. No pneumothor ax or pleural effusion. IMPRESSION: 1. Cardiomegaly and pulmonary vascular congestion. 2. Diffuse right hemithorax increased density probably from rotation. Asymmetric edema or infection not excludable. Reviewed, dictated and finalized at location A. IMPRESSION: 1. Cardiomegaly and pulmonary vascular congestion. 2. Diffuse right hemithorax increased density probably from rotation. Asymmetr ic edema or infection not excludable.
--- NOTE | 2020-11-27 16:56 | ECG_ITS ---
Measurements Intervals [place] Rate: 136 P: [place]: 0 QRS: -70 QRSD: 107 T: 83 QT: 296 QTc: 446 Interpretive Statements ATRIAL FIBRILLATION WITH RAPID VENTRICULAR RESPONSE VENTRICULAR COUPLET AND VENTRICULAR PREMATURE COMPLEX LEFT AXIS DEVIATION INTRAVENTRICULAR CONDUCTION DELAY CANNOT RULE OUT SEPTAL INFARCT, AGE INDETERMINATE BORDERLINE ST-T WAVE ABNORMALITY- HIGH LATERAL LEADS BASELINE ARTIFACT- I, II, AVR, AVL, AVF, V4-V6 ABNORMAL ECG Electronically Signed On 11-28-2020 7:28:33 CDT by Scott Sanabria D.O.
[2020-11-27 17:21] LABS: Basophils Percent Auto 0.2 % (0.2-1.2); Eosinophils Percent Auto 0.1 % (0-4.4); Hematocrit 34.1 % (42.0-52.0); Hemoglobin 10.8 g/dL (14.0-18.0); Immature Granulocyte Absolute 0.09 K/mm3 (0.00-0.031); Immature Granulocyte Percent A 0.7 % (0-0.5); Lymphocytes Absolute Auto 0.95 K/mm3 (0.9-3.2); Lymphocytes Percent Auto 6.9 % (18.3-44.2); Mean Corpuscular HGB Conc 31.7 g/dl (32-36); Mean Corpuscular Hemoglobin 28.3 pg (26-34); Mean Corpuscular Volume 89.3 fl (80-100); Mean Platelet Volume 10.8 fl (7.4-10.4); Monocytes Absolute Auto 1.1 K/mm3 (0.1-0.6); Neutrophils Absolute Auto 11.6 K/mm3 (1.3-6.7); Neutrophils Percent Auto 84.1 % (45.5-73.1); Platelet Count Result 150 k/mm3 (150-375); Red Blood Count 3.82 M/mm3 (4.6-6.20); Red Cell Distribution Width 14.8 % (11.5-14.5); White Blood Count 13.8 K/mm3 (4.5-10.0)
[2020-11-27] MEDS: SODIUM CHLORIDE 0.9% IV 1,000 ML 999 ML IV CONT (17:23)
[2020-11-27 17:26] LABS: Add Urine Microscopic? YES; Appearance Urine Clear (Clear); Bacteria Urine Trace /hpf; Bilirubin Urine Negative (Negative); Blood Urine 1+ (Negative); Color Urine Yellow (Yellow); Glucose Urine UA Negative (Negative); Ketones Urine Negative (Negative); Leukocyte Esterase Ur Trace LEU/UL (Negative); Mucus Urine Rare /lpf; Nitrate Urine Positive (Negative); Protein Urine Negative (Negative); RBC Urine 0-2 /hpf (0-2); Specific Grav Ur 1.024 (1.001-1.035)
[2020-11-27 17:30] LABS: Lactic Acid Reflex 1.8 mmol/L (0.7-2.1)
[2020-11-27 17:32] LABS: Alanine Aminotransferase 18 U/L (4-50); Albumin Level 3.4 g/dL (3.5-5.1); Alkaline Phosphatase 119 U/L (38-126); Anion Gap 6 mmol/L (8-16); Aspartate Amino Transferase 30 U/L (17-59); Bilirubin,Total 0.9 mg/dL (0.2-1.3); Blood Urea Nitrogen 31 mg/dL (9-20); Calcium 8.3 mg/dL (8.4-10.2); Carbon Dioxide 23 mmol/L (22-30); Chloride 110 mmol/L (98-107); Estimated CRCL calculation 56 ml/min; Estimated Glomerular Filt Rate > 60; Glucose 136 mg/dL (65-110); Potassium 4.3 mmol/L (3.4-5.0); Sodium 139 mmol/L (137-145)
--- NOTE | 2020-11-27 18:59 | ED.FEVER ---
HPI - Fever General Chief Complaint: Fever Stated Complaint: altered, fever Time Seen by Provider: 11/27/20 16:57 Source: EMS Mode of arrival: EMS Limitations: dementia History of Present Illness HPI Narrative: 79-year-old with a history of dementia, A. fib, BPH was sent from a assisted with increased confusion, high fever and shortness of breath. As per the assisted patient had a temperature of 106. Has history of UTI in the past. No history of cough, nausea or vomiting. No history could be obtained from the patient secondary to his dementia. MD elicited complaint: fever Onset (ago): day(s) (1) Related Data Home Medications Medication Instructions Recorded Confirmed finasteride 5 mg PO HS 07/16/19 09/27/20 Arginaid 4.5 g PO BID 09/27/20 09/27/20 bisacodyl 10 mg RECTAL DAILY PRN 09/27/20 09/27/20 lorazepam [Ativan] 0.5 mg PO TID PRN 09/27/20 09/27/20 memantine [Namenda] 5 mg PO BID 09/27/20 09/27/20 multivitamin with minerals [Daily 1 tablet PO DAILY 09/27/20 09/27/20 Multivitamin-Minerals] warfarin 3 mg PO DAILY 09/27/20 09/27/20 memantine 5 mg tablet 5 mg PO BID 10/16/20 Allergies Allergy/AdvReac Type Severity Reaction Status Date / Time amoxicillin Allergy Intermediate Rash Verified 10/16/20 10:37 codeine Allergy Intermediate Unknown Verified 10/16/20 10:37 quinidine Allergy Mild RASH Verified 10/16/20 10:37 enalapril Allergy Unknown Unknown Verified 10/16/20 10:37 Penicillins Allergy Unknown Unknown Verified 10/16/20 10:37 Review of Systems Review of Systems: ROS unobtainable: Yes unobtainable due to mental status PMFSH Past Medical History Medical History Afib Ankle fracture, left Arthritis BPH (benign prostatic hyperplasia) Cancer Cataracts, bilateral CHF (congestive heart failure) Chicken pox Dementia Eczema Frequent nosebleeds History of blood transfusion HTN (hypertension) Irregular heart beat Mumps Pneumonia Shingles Thoracic aortic aneurysm Ventral hernia Surgical History Surgical History History of cataract surgery History of inguinal hernia repair Family History Family History Sibling Family history of gastrointestinal disorder Mother Acute myocardial infarction Father Family history of lung cancer Family history of emphysema Social History Social History Social History: The patient is from [facility]. The patient is noted to be retired and he is listed as being . The patient is listed as a DNR. He has a daughter is listed as next of kin for contact representative. Smoking status: Unknown if ever smoked Alcohol intake: unknown Substance use: unknown Substance use type: unknown Gender identity (if verbalized by the patient): Male Spiritual care concerns: No Agree to blood products: Yes Exam Narrative: Exam Narrative: GENERAL: Ill appearing, Febrile and in no acute distress. HEAD: Normocephalic, atraumatic. EYES: PERRLA and EOMI. NECK: Supple. CHEST: Clear to auscultation. No respiratory distress. HEART: Tachycardic. ABDOMEN: Soft, nontender, nondistended, normal active bowel sounds. EXTREMITIES: Normal range of motion. Right leg is erythematous tender on palpation. Venous stasis dermatitis contractures in the knee. SKIN: Warm, dry, no rash. NEURO: Alert PSYCH: Normal mood and affect. Course Course Emergency Course: Patient heart rate has come down from 130s to 102 at this time. I discussed with Haley who agreed to admit the patient. We will start him on Rocephin for IV for UTI and continue IV fluids. Vital Signs Vital signs: Vital Signs Temperature 38.7 C H 11/27/20 16:45 Pulse Rate 122 H 11/27/20 16:45 Respiratory Rate 18 11/27/20 16:45 Blood Pressure 136/89 11/27/20 16:45 Pulse Oximetry 95 11/27/20
[2020-11-27 19:32] LABS: INR 2.7
--- NOTE | 2020-11-27 21:21 | PM.IMHP ---
H&P: HPI History of Present Illness Date/Time: 11/27/20 21:21 this is a 79-year-old male patient who has a history of dementia and resides in a assisted. It looks like the patient is from [facility]. The patient typically yells out but has been nonverbal. 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 Patient's last admission was 09/27/2020 where he was admitted for sepsis due to his heels. The patient was brought to the emergency room today from the assisted due to increased confusion. He had a high fever of 106. His also had a history of UTI in the past. The patient only had positive nitrates today. Trace leukocyte esterase. WBCs 4-6. However the patient has a foul smell coming from both of his heels with aldrich colored drainage. Chest x-ray was read as cardiomegaly and pulmonary vascular congestion. Diffuse right hemithorax increased density probably from rotation. Is symmetric edema or infection not excludable. The patient was initially started on Rocephin given IV fluids and Tylenol. His white count is noted to be 13.8. H&H is 10.8 and 34.1. The patient is being admitted to inpatient services on the date of service of 11/27/2020 Chief Complaint: Fever Review of Systems Review of Systems: ROS unobtainable: Yes unobtainable due to mental status PMFSH Past Medical History Medical History Afib Ankle fracture, left Arthritis BPH (benign prostatic hyperplasia) Cancer Cataracts, bilateral CHF (congestive heart failure) Chicken pox Dementia Eczema Frequent nosebleeds History of blood transfusion HTN (hypertension) Irregular heart beat Mumps Pneumonia Shingles Thoracic aortic aneurysm Ventral hernia Surgical History Surgical History History of cataract surgery History of inguinal hernia repair Family History Family History Sibling Family history of gastrointestinal disorder Mother Acute myocardial infarction Father Family history of lung cancer Family history of emphysema Social History Social History Social History: The patient is from [facility]. The patient is noted to be retired and he is listed as being . The patient is listed as a DNR. He has a daughter is listed as next of kin for grounds person. Smoking status: Unknown if ever smoked Alcohol intake: unknown Substance use: unknown Substance use type: unknown Gender identity (if verbalized by the patient): Male Spiritual care concerns: No Agree to blood products: Yes Meds Home Medications and Allergies Home Medications Medication Instructions Recorded Confirmed Type finasteride 5 mg PO HS 07/16/19 09/27/20 History donepezil 10 mg tablet 10 mg PO HS #30 tablet 05/29/20 09/27/20 Rx acetaminophen [Mapap 650 mg PO Q4H PRN #30 tablet 07/16/20 09/27/20 Rx (acetaminophen)] furosemide 20 mg PO DAILY #30 tablet 07/16/20 09/27/20 Rx Arginaid 4.5 g PO BID 09/27/20 09/27/20 History bisacodyl 10 mg RECTAL DAILY PRN 09/27/20 09/27/20 History lorazepam [Ativan] 0.5 mg PO TID PRN 09/27/20 09/27/20 History memantine [Namenda] 5 mg PO BID 09/27/20 09/27/20 History multivitamin with minerals [Daily 1 tablet PO DAILY 09/27/20 09/27/20 History Multivitamin-Minerals] warfarin 3 mg PO DAILY 09/27/20 09/27/20 History metoprolol tartrate 12.5 mg PO DAILY #30 tablet 10/03/20 Rx warfarin 4 mg PO QTUTHSASU #30 tablet 10/03/20 Rx memantine 5 mg tablet 5 mg PO BID 10/16/20 History Allergies Allergy/AdvReac Type Severity Reaction Status Date / Time amoxicillin Allergy Intermediate Rash Verified 11/27/20 20:50 codeine Allergy Intermediate Unknown Verified 11/27/20 20:50 quinidine Allergy Mild RASH Verified 11/27/20 20:50 enalapril Allergy Unknown Unknown Verified 11/27/20 20:50
--- NOTE | 2020-11-27 21:30 | ADMGEN ---
This patient, Abraham Garland, was admitted to 3 [facility] Surg Room 320-01. Patient/family oriented to hospital policies and general routines including ID bracelet, bed and alarms, visiting hours, pain management, procedures, bathroom and other care routines, personal items, smoking policy, room service/diet, and visiting hours. Information on how to activate the Rapid Response Team has been discussed. Patient/Family are encouraged to report perceived risks to care and to ask questions if they do not understand what they are told or what they should do.
[2020-11-27] MEDS: SODIUM CHLORIDE 0.9% IV 1,000 ML 125 ML IV CONT (22:05)
[2020-11-27 22:12] LABS: INR 2.6; Prothrombin Time 27.5 Seconds (11.1-14.7)
[2020-11-27 22:22] LABS: Lactic Acid Reflex 1.6 mmol/L (0.7-2.1)
[2020-11-28] VITALS (14 sets, daily range): BP systolic 101–135; BP diastolic 53–93; PULSE 46–147; RESP 14–18; TEMP 36.3–38.2; O2SAT 92–100; BMI 25.0
[2020-11-28] MEDS: METOPROLOL TARTRATE INJ 5 MG/5 ML VIAL (02:37)
[2020-11-28] MEDS: METOPROLOL TARTRATE 12.5 MG TABLET PO ×3 (02:57→18:11)
[2020-11-28] MEDS: SODIUM CHLORIDE 0.9% IV 1,000 ML 125 ML IV CONT (06:38)
[2020-11-28 07:08] LABS: Basophils Percent Auto 0.1 % (0.2-1.2); Hematocrit 31.6 % (42.0-52.0); Hemoglobin 10.1 g/dL (14.0-18.0); Immature Granulocyte Absolute 0.21 K/mm3 (0.00-0.031); Immature Granulocyte Percent A 1.2 % (0-0.5); Immature Platelet Fraction Pct 5.1 % (0.9-11.2); Lymphocytes Absolute Auto 1.03 K/mm3 (0.9-3.2); Lymphocytes Percent Auto 5.8 % (18.3-44.2); Mean Corpuscular Volume 87.5 fl (80-100); Mean Platelet Volume 10.8 fl (7.4-10.4); Monocytes Absolute Auto 1.3 K/mm3 (0.1-0.6); Monocytes Percent Auto 7.3 % (2.6-8.5); Neutrophils Absolute Auto 15.1 K/mm3 (1.3-6.7); Neutrophils Percent Auto 85.6 % (45.5-73.1); Platelet Count Result 126 k/mm3 (150-375); Red Blood Count 3.61 M/mm3 (4.6-6.20); Red Cell Distribution Width 14.7 % (11.5-14.5); White Blood Count 17.6 K/mm3 (4.5-10.0)
[2020-11-28 07:25] LABS: Anion Gap 6 mmol/L (8-16); Blood Urea Nitrogen 24 mg/dL (9-20); Carbon Dioxide 20 mmol/L (22-30); Chloride 112 mmol/L (98-107); Estimated CRCL calculation 56 ml/min; Estimated Glomerular Filt Rate > 60; Glucose 105 mg/dL (65-110); Potassium 3.9 mmol/L (3.4-5.0); Sodium 138 mmol/L (137-145)
[2020-11-28] MEDS: FINASTERIDE 5 MG TABLET PO (09:11)
[2020-11-28] MEDS: MEMANTINE 5 MG TABLET PO ×2 (09:11→21:31)
--- NOTE | 2020-11-28 16:01 | PM.IMPN ---
Progress Note: A&P Assessment and Plan (1) Cellulitis: Code(s): L03.90 - Cellulitis, unspecified Status: Acute Assessment and Plan: Pt's right leg is erythematous, hot, swollen and painful -Continue vancomycin -Triage note does mention there is a chronic component of this however its worrisome for acute infection -Pt had significant pain and on warfarin. Will check CT of the limb to assess for infection but also to ensure no hematoma -WBC 17.6 today. Blood cultures pending. Last temp 11/27/20 (2) Sepsis: Code(s): A41.9 - Sepsis, unspecified organism Status: Acute Assessment and Plan: Likely due to above but pt also showing evidence of PNA -Continue vancomycin and Levaquin -If pt does not improve and fevers continue, consider a CT abd/pelvis -No feves since 11/27/20 -no signs of UTI and no diarrhea (3) Fever: Qualifiers: Fever type: unspecified Qualified Code(s): R50.9 - Fever, unspecified Code(s): R50.9 - Fever, unspecified Status: Acute Assessment and Plan: As above -cx pending (4) Pressure ulcer of right heel: Code(s): L89.619 - Pressure ulcer of right heel, unspecified stage Status: Acute Assessment and Plan: Continue wound tx,a bx and waffle boots (5) Pressure ulcer of left heel: Code(s): L89.629 - Pressure ulcer of left heel, unspecified stage Status: Acute Assessment and Plan: Continue waffle boots (6) HTN (hypertension): Qualifiers: Hypertension type: essential hypertension Qualified Code(s): I10 - Essential (primary) hypertension Code(s): I10 - Essential (primary) hypertension Status: Acute Assessment and Plan: Last bp 101/77 -hold lasix, continue metoprolol (verifying dose) (7) Dementia: Qualifiers: Dementia type: Alzheimer's Alzheimer's disease onset: unspecified onset Dementia behavioral disturbance: without behavioral disturbance Qualified Code(s): G30.9 - Alzheimer's disease, unspecified; F02.80 - Dementia in other diseases classified elsewhere without behavioral disturbance Code(s): F03.90 - Unspecified dementia without behavioral disturbance Status: Acute Assessment and Plan: The patient is nonverbal at this time. In previous reports the patient was noted to be yelling out at times. - Continue with namenda (8) Afib: Qualifiers: Atrial fibrillation type: paroxysmal Qualified Code(s): I48.0 - Paroxysmal atrial fibrillation Code(s): I48.91 - Unspecified atrial fibrillation Status: Chronic Assessment and Plan: Slight elevation in HR likely due to pain and confusion. If he is resting it is around 102 -RN having trouble verifying metoprolol dose, await for that result -continue warfarin (9) CHF (congestive heart failure): Qualifiers: Heart failure type: systolic Heart failure chronicity: chronic Qualified Code(s): I50.22 - Chronic systolic (congestive) heart failure Code(s): I50.9 - Heart failure, unspecified Status: Acute Assessment and Plan: Appears euvolemic today -stop fluids, hold lasix at this time -readjust according to exam tomorrow -I fed the pt some pudding during exam and he ate well. I have asked the [employer] ORDER to feed him. (10) PNA (pneumonia): Code(s): J18.9 - Pneumonia, unspecified organism Status: Acute Assessment and Plan: Possible PNA on CXR with fevers -continue Levaquin and wean oxygen as tolerated Time Spent With Patient Time with patient: 25 - 35 minutes Subjective Date/time seen: 11/28/20 16:01 Interval history: Pt is a 79-year-old male here for fever. Patient is severely demented and was unable to answer any of my questions. it is reported that he is alert and oriented x1 at baseline however he was unable to verbalize his name. He kept screaming in pain when I ma
[2020-11-28] MEDS: COLLAGENASE OINT 30 GM TUBE 1 APPLIC TOPICAL ×2 (16:04→22:31)
[2020-11-28] MEDS: LORazepam INJ (*CRX) 2 MG/ML VIAL 0.5 MG IV PUSH (16:04)
[2020-11-28] MEDS: WARFARIN (*PBKC) 3 MG TABLET PO (18:09)
[2020-11-28] MEDS: ACETAMINOPHEN 325 MG TABLET 650 MG PO (22:30)
[2020-11-29] VITALS (17 sets, daily range): BP systolic 88–110; BP diastolic 54–77; PULSE 86–135; RESP 18–24; TEMP 36.6–37.4; O2SAT 94–98
[2020-11-29 06:45] LABS: Basophils Percent Auto 0.2 % (0.2-1.2); Eosinophils Percent Auto 0.1 % (0-4.4); Hematocrit 32.7 % (42.0-52.0); Hemoglobin 10.1 g/dL (14.0-18.0); Immature Granulocyte Absolute 0.18 K/mm3 (0.00-0.031); Immature Granulocyte Percent A 1.4 % (0-0.5); Lymphocytes Absolute Auto 1.33 K/mm3 (0.9-3.2); Mean Corpuscular HGB Conc 30.9 g/dl (32-36); Mean Corpuscular Volume 90.6 fl (80-100); Mean Platelet Volume 11.1 fl (7.4-10.4); Monocytes Percent Auto 7.3 % (2.6-8.5); Neutrophils Absolute Auto 10.7 K/mm3 (1.3-6.7); Platelet Count Result 109 k/mm3 (150-375); Red Blood Count 3.61 M/mm3 (4.6-6.20); Red Cell Distribution Width 14.8 % (11.5-14.5); White Blood Count 13.3 K/mm3 (4.5-10.0)
[2020-11-29 07:00] LABS: Anion Gap 7 mmol/L (8-16); Blood Urea Nitrogen 27 mg/dL (9-20); Calcium 8.3 mg/dL (8.4-10.2); Carbon Dioxide 22 mmol/L (22-30); Chloride 109 mmol/L (98-107); Creatine Kinase 664 U/L (55-170); Estimated CRCL calculation 47 ml/min; Estimated Glomerular Filt Rate 58; Glucose 100 mg/dL (65-110); Potassium 3.6 mmol/L (3.4-5.0); Sodium 138 mmol/L (137-145)
[2020-11-29 07:21] LABS: INR 2.8; Prothrombin Time 28.8 Seconds (11.1-14.7)
[2020-11-29] MEDS: MEMANTINE 5 MG TABLET PO ×2 (08:40→21:01)
[2020-11-29] MEDS: COLLAGENASE OINT 30 GM TUBE 1 APPLIC TOPICAL ×2 (08:40→21:02)
[2020-11-29] MEDS: FINASTERIDE 5 MG TABLET PO (08:40)
[2020-11-29] MEDS: SODIUM CHLORIDE 0.9% IV 500 ML 150 ML IV CONT (08:56)
--- NOTE | 2020-11-29 11:41 | PM.IMPN ---
Progress Note: A&P Assessment and Plan (1) Cellulitis: Code(s): L03.90 - Cellulitis, unspecified Status: Acute Assessment and Plan: Pt's right leg is erythematous, hot, swollen and painful -Continue vancomycin, seems to have improved slightly today -Triage note does mention there is a chronic component of this however its worrisome for acute infection -Pt had significant pain and on warfarin.CT without hematoma but does show myositis. could be due to infection. No signs of compartment syndrome. -WBC 13.3 today and pt more interactive. Blood cultures NGTD. Last temp 11/27/20 (2) Sepsis: Code(s): A41.9 - Sepsis, unspecified organism Status: Acute Assessment and Plan: Likely due to above but pt also showing evidence of PNA -Continue vancomycin and Levaquin -No feves since 11/27/20 -no signs of UTI and no diarrhea (3) Fever: Qualifiers: Fever type: unspecified Qualified Code(s): R50.9 - Fever, unspecified Code(s): R50.9 - Fever, unspecified Status: Acute Assessment and Plan: As above -Blood cultures with NGTD (4) Pressure ulcer of right heel: Code(s): L89.619 - Pressure ulcer of right heel, unspecified stage Status: Acute Assessment and Plan: Continue wound tx,abx and waffle boots (5) Pressure ulcer of left heel: Code(s): L89.629 - Pressure ulcer of left heel, unspecified stage Status: Acute Assessment and Plan: Continue waffle boots (6) HTN (hypertension): Qualifiers: Hypertension type: essential hypertension Qualified Code(s): I10 - Essential (primary) hypertension Code(s): I10 - Essential (primary) hypertension Status: Acute Assessment and Plan: Last bp 88/60 but feel well and more interactive -hold lasix and metoprolol ( -give 500cc fluids at high rate 150. Recheck bp after (7) Dementia: Qualifiers: Dementia type: Alzheimer's Alzheimer's disease onset: unspecified onset Dementia behavioral disturbance: without behavioral disturbance Qualified Code(s): G30.9 - Alzheimer's disease, unspecified; F02.80 - Dementia in other diseases classified elsewhere without behavioral disturbance Code(s): F03.90 - Unspecified dementia without behavioral disturbance Status: Acute Assessment and Plan: At baseline - Continue with namenda (8) Afib: Qualifiers: Atrial fibrillation type: paroxysmal Qualified Code(s): I48.0 - Paroxysmal atrial fibrillation Code(s): I48.91 - Unspecified atrial fibrillation Status: Chronic Assessment and Plan: Slight elevation in HR likely due to pain and confusion. Unable to give metoprolol due to bp issues -may consider cardiology consult if rate continues to be high and bp soft -continue warfarin (9) CHF (congestive heart failure): Qualifiers: Heart failure type: systolic Heart failure chronicity: chronic Qualified Code(s): I50.22 - Chronic systolic (congestive) heart failure Code(s): I50.9 - Heart failure, unspecified Status: Acute Assessment and Plan: Giving fluids but will watch fluid status (10) PNA (pneumonia): Code(s): J18.9 - Pneumonia, unspecified organism Status: Acute Assessment and Plan: Possible PNA on CXR with fevers -continue Levaquin -off o2 Subjective Date/time seen: 11/29/20 11:41 Interval history: Pt is a 79-year-old male here for fever. Patient is severely demented and was unable to answer any of my questions appropriately. it is reported that he is alert and oriented x1 at baseline which is what he was on exam. He kept pointing at his left femur and his right leg when asked about pain. Denies CP or SOB but unclear if he undertands. Exam Narrative: Exam Narrative: General: Elderly patient resting in bed in no acute distress HEENT: normocephalic Nec
--- NOTE | 2020-11-29 15:26 | PM.CNCAR ---
Assessment and Plan Assessment and plan (1) Atrial fibrillation with RVR: Code(s): I48.91 - Unspecified atrial fibrillation <RYAN Hinds - Last Filed: 11/29/20 16:23> Status: Acute <RYAN Hinds - Last Filed: 11/29/20 16:23> Assessment and Plan: Chronic atrial fibrillation Seen on EKG this admission and on EKG from previous hospitalization. Now with rapid ventricular response and a rate of 130-150. On anticoagulation with warfarin -INR therapeutic. Is on a small dose of metoprolol 12.5 mg. However, he is hypotensive. His hypotension he limits pharmacologic options for rate control - Beta-blockers, calcium channel blockers are not good options. Therefore, I think amiodarone is the best choice for rate control. Will give amiodarone bolus followed by amiodarone drip. If he remains hypotensive consider transfer to ICU for initiation of vasopressors. <RYAN Hinds - Last Filed: 11/29/20 16:23> (2) Systolic CHF, acute on chronic: Code(s): I50.23 - Acute on chronic systolic (congestive) heart failure <RYAN Hinds - Last Filed: 11/29/20 16:23> Status: Acute <RYAN Hinds - Last Filed: 11/29/20 16:23> Assessment and Plan: No echocardiogram in our system but per the medical record he has ejection fraction of 35%. On exam he does have some lower extremity pitting edema. Breathing comfortably on room air. Unable to diurese due to hypotension. hold carvedilol due to hypotension. May be able to resume diuresis when heart rate and blood pressure are better controlled. <RYAN Hinds - Last Filed: 11/29/20 16:23> (3) HTN (hypertension): Qualifiers: Hypertension type: essential hypertension Qualified Code(s): I10 - Essential (primary) hypertension <RYAN Hinds - Last Filed: 11/29/20 16:23> Code(s): I10 - Essential (primary) hypertension <RYAN Hinds - Last Filed: 11/29/20 16:23> Status: Acute <RYAN Hinds - Last Filed: 11/29/20 16:23> Assessment and Plan: currently hypotensive. Metoprolol should be held. <RYAN Hinds - Last Filed: 11/29/20 16:23> History of Present Illness History of Present Illness Consult date/time: 11/29/20 15:26 Cardiology consultation for atrial fibrillation with rapid ventricular response This is the 79-year-old male with past medical history of Alzheimer's dementia, CHF, atrial fibrillation, hypertension who I am seeing at the request of the hospitalist for atrial fibrillation. The patient is mostly nonverbal but sometimes does say some words. He is unable to provide history. The history contain in this HPI I was obtained from the medical record. He lives at [facility] and was brought to the hospital for fever. He was found to be septic with pneumonia as a source of his infection. He is being treated with broad-spectrum antibiotics and has not been febrile since 11/27/2020. He has been in atrial fibrillation and now is in atrial fibrillation with rapid ventricular response. He is also hypotensive. For this reason we have been asked to see the patient give her recommendations regarding management of his atrial fibrillation. He is chronically systemically anticoagulated with Coumadin. His INR is therapeutic. <RYAN Hinds - Last Filed: 11/29/20 16:23> Reason For Visit: Fever, UTI <RYAN Hinds - Last Filed: 11/29/20 16:23> Review of Systems Review of Systems: ROS unobtainable: Yes unobtainable due to mental status <RYAN Hinds - Last Filed: 11/29/20 16:23> [facility] Past Medical History Medical History: Medical History Afib Ankle fracture, left Arthritis BPH (benign prostatic hyperplasia) Cancer Cataracts, bilateral CHF (congestive heart failure) Chicken pox Dementia
[2020-11-29] MEDS: WARFARIN (*PBKC) 3 MG TABLET PO (17:15)
--- NOTE | 2020-11-29 17:36 | PC.NURSE ---
Patient transferred to IMU room 205. Neyda CONTRERAS received report.
[2020-11-29] MEDS: AMIODARONE 150 MG/D5W 100 ML 150 MG/100 ML BAG 600 MG IV CONT (17:53)
--- NOTE | 2020-11-29 18:00 | ECG_ITS ---
Measurements Intervals [place] Rate: 120 P: FL: 0 QRS: -70 QRSD: 111 T: 69 QT: 314 QTc: 444 Interpretive Statements ATRIAL FIBRILLATION WITH RAPID VENTRICULAR RESPONSE VENTRICULAR PREMATURE COMPLEXES LEFT AXIS DEVIATION INTRAVENTRICULAR CONDUCTION DELAY ANTEROSEPTAL INFARCT, AGE INDETERMINATE CONSIDER INFERIOR INFARCT, AGE INDETERMINATE BASELINE ARTIFACT- II, III, AVR, AVF, V1-V2 ABNORMAL ECG Electronically Signed On 11-30-2020 8:02:42 CDT by Scott Sanabria D.O.
[2020-11-29] MEDS: AMIODARONE 360 MG/D5W 200 ML 360 MG/200 ML BAG 33.33 MG IV CONT (18:05)
--- NOTE | 2020-11-29 19:31 | PC.NURSE ---
1740- Received pt from ER via bed' pt alert to self only - speech garbled. Monitor on Atrial fibrillation 150's ' ,BP 111/79
[2020-11-29] MEDS: AMIODARONE 360 MG/D5W 200 ML 360 MG/200 ML BAG 16.67 MG IV CONT (23:45)
[2020-11-30] VITALS (18 sets, daily range): BP systolic 95–152; BP diastolic 58–113; PULSE 67–122; RESP 18–24; TEMP 26.6–36.8; O2SAT 95–98
[2020-11-30 05:18] LABS: Basophils Percent Auto 0.2 % (0.2-1.2); Eosinophils Absolute Auto 0.1 K/mm3 (0-0.3); Hemoglobin 10.1 g/dL (14.0-18.0); Immature Granulocyte Absolute 0.05 K/mm3 (0.00-0.031); Immature Granulocyte Percent A 0.5 % (0-0.5); Immature Platelet Fraction Pct 6.6 % (0.9-11.2); Lymphocytes Absolute Auto 1.54 K/mm3 (0.9-3.2); Lymphocytes Percent Auto 14.1 % (18.3-44.2); Mean Corpuscular HGB Conc 31.6 g/dl (32-36); Mean Corpuscular Hemoglobin 28.1 pg (26-34); Mean Corpuscular Volume 88.9 fl (80-100); Mean Platelet Volume 11.3 fl (7.4-10.4); Monocytes Absolute Auto 0.6 K/mm3 (0.1-0.6); Monocytes Percent Auto 5.8 % (2.6-8.5); Neutrophils Absolute Auto 8.6 K/mm3 (1.3-6.7); Neutrophils Percent Auto 78.4 % (45.5-73.1); Platelet Count Result 133 k/mm3 (150-375); Red Cell Distribution Width 14.7 % (11.5-14.5); White Blood Count 10.9 K/mm3 (4.5-10.0)
[2020-11-30 05:26] LABS: INR 3.1; Prothrombin Time 30.7 Seconds (11.1-14.7)
[2020-11-30 05:28] LABS: Alanine Aminotransferase 26 U/L (4-50); Alkaline Phosphatase 110 U/L (38-126); Anion Gap 9 mmol/L (8-16); Aspartate Amino Transferase 42 U/L (17-59); Bilirubin,Total 0.5 mg/dL (0.2-1.3); Blood Urea Nitrogen 31 mg/dL (9-20); Calcium 8.4 mg/dL (8.4-10.2); Carbon Dioxide 19 mmol/L (22-30); Chloride 108 mmol/L (98-107); Creatine Kinase 259 U/L (55-170); Estimated CRCL calculation 51 ml/min; Estimated Glomerular Filt Rate > 60; Glucose 100 mg/dL (65-110); Potassium 3.6 mmol/L (3.4-5.0); Sodium 136 mmol/L (137-145)
[2020-11-30] MEDS: FINASTERIDE 5 MG TABLET PO (08:36)
[2020-11-30] MEDS: COLLAGENASE OINT 30 GM TUBE 1 APPLIC TOPICAL ×2 (08:36→22:31)
[2020-11-30] MEDS: MEMANTINE 5 MG TABLET PO ×2 (08:37→22:30)
[2020-11-30] MEDS: AMIODARONE 360 MG/D5W 200 ML 360 MG/200 ML BAG 16.67 MG IV CONT ×2 (10:59→22:29)
--- NOTE | 2020-11-30 11:35 | PM.PNCARD ---
Progress Note: A&P Assessment and Plan (1) Atrial fibrillation with RVR: Code(s): I48.91 - Unspecified atrial fibrillation Status: Acute Assessment and Plan: Chronic atrial fibrillation Seen on EKG this admission and on EKG from previous hospitalization. We were consulted in the setting of AF with rapid ventricular response at a rate of 130-150. On anticoagulation with warfarin -INR therapeutic. He was hypotensive so amiodarone drip was chosen for rate control. His rate is still not well controlled on amiodarone (100-120 mostly). -BP better today - restarted low dose metoprolol with holding parameters. (2) Systolic CHF, acute on chronic: Code(s): I50.23 - Acute on chronic systolic (congestive) heart failure Status: Acute Assessment and Plan: No echocardiogram in our system but per the medical record he has ejection fraction of 35%. On exam he does not appear to be in decompensated heart failure at this time. (3) HTN (hypertension): Qualifiers: Hypertension type: essential hypertension Qualified Code(s): I10 - Essential (primary) hypertension Code(s): I10 - Essential (primary) hypertension Status: Acute Assessment and Plan: At goal. Subjective Date/time seen: 11/30/20 11:35 Cardiology follow up for Afib w/ RVR Date of service: Unable to discuss any symptoms with patient - he is mostly nonverbal but does mumble some words. He has remained in atrial fibrillation with a rapid ventricular response on the amiodarone drip. His rate is a little better controlled -mostly in the low 100's to 120s. His blood pressure is better today. Review of Systems Review of Systems: ROS unobtainable: Yes unobtainable due to mental status Exam Const: General: comfortable and no acute distress HENMT: Head: normal to inspection Eyes: General: appearance normal, both eyes and all related structures Sclera: sclerae normal Neck: Neck: supple and no JVD Resp: Auscultation: clear to auscultation bilaterally and diminished lung sounds Cardio: Rate: tachycardic Rhythm: abnormal rhythm irregularly irregular GI: Auscultation: normal bowel sounds Skin: General skin exam: normal color Wounds: wounds noted Neuro: Cognition (Neuro): abnormal cognition Speech: No normal speech Extrem: General: abnormal to inspection, edema and pedal edema Psych: Mental Status: mental status grossly abnormal Objective Data Vital Signs Vital Signs: Vital Signs - 24 hr 11/29/20 12:00 11/29/20 12:30 11/29/20 16:00 Temperature 36.6 C 36.7 C Pulse Rate 116 H 119 H 115 H Respiratory Rate 20 22 H Blood Pressure 94/60 L 98/58 L Pulse Oximetry 96 96 11/29/20 17:40 11/29/20 17:53 11/29/20 18:00 Temperature Pulse Rate 135 H 135 H 120 H Respiratory Rate Blood Pressure 110/73 Pulse Oximetry 11/29/20 18:05 11/29/20 19:00 11/29/20 20:00 Temperature 36.6 C Pulse Rate 126 H 119 H 111 H Respiratory Rate 20 Blood Pressure 107/77 107/59 L Pulse Oximetry 98 11/29/20 22:00 11/29/20 23:45 11/30/20 00:00 Temperature 26.6 C L Pulse Rate 119 H 111 H 85 Respiratory Rate 20 Blood Pressure 99/58 L Pulse Oximetry 97 11/30/20 02:00 11/30/20 04:00 11/30/20 06:00 Temperature 36.6 C Pulse Rate 111 H 105 H 116 H Respiratory Rate 21 H Blood Pressure 152/113 H Pulse Oximetry 97 11/30/20 08:00 11/30/20 10:59 Temperature 36.7 C Pulse Rate 112 H 113 H Respiratory Rate 24 H Blood Pressure 107/75 Pulse Oximetry 98 Intake/Output Intake/Output: Intake & Output 11/27/20 11/28/20 11/29/20 11/30/20 23:59 23:59 23:59 23:59 Intake Total 1150 2600 2030 800 Output Total 400 200 Balance 750 2600 2030 600 Meds/Results Medications: Active Medications Generic Name Dose Route Start Last Admin Trade Name Freq PRN Reason Stop Dose Admin Acetaminophen 650 mg 11/28/20 22:06 11/28/20 22:30 Acetaminophen 325 Mg Tablet P
--- NOTE | 2020-11-30 11:42 | PCDIET ---
Nutrition Follow-Up Complete: Nutrition Diagnosis: Increased protein needs related to wounds as evidenced by unstageable pressure ulcers. Nutrition Goal: Meet estimated nutritional needs. Goal in progress. Average intake since 11/28/20 has been 40% of recorded meals. Spoke with nurse aid at 09:40 at which time patient had not yet eaten breakfast. Placed order for breakfast tray. Unknown at this time whether patient has been consistently accepting Beni due to recent transfer to IMU. Would continue Beni BID and add Ensure Enlive (350kcal, 20g protein) for supplemental nutrition. Last recorded weight is 83.8 kg. Bowel Motility: Last documented BM on 11/29/20 x 2. Labs Reviewed: WBC (10.9), RBC (3.6), Hgb (10.1), Hct (32.0), BUN (31), Na (136), Alb (3.0) Meds Noted: Amiodarone, Levaquin, Namenda, Lopressor, Vancomycin, Coumadin Additional Notes: Bilateral heels with unstageable ulcers. Will continue to monitor with same goal. Nutrition Monitoring and Evaluation: Will monitor every 3 days.
--- NOTE | 2020-11-30 14:11 | PM.IMPN ---
Progress Note: A&P Assessment and Plan (1) Cellulitis: Code(s): L03.90 - Cellulitis, unspecified Status: Acute Assessment and Plan: Pt's right leg is erythematous, hot, swollen and painful -Continue vancomycin, seems to have improved and pt has been afebrile since 11/28 -Pt had significant pain and on warfarin. CT without hematoma but does show myositis. could be due to infection. No signs of compartment syndrome. -WBC 10.9 today and pt more interactive. Blood cultures NGTD. (2) Sepsis: Code(s): A41.9 - Sepsis, unspecified organism Status: Acute Assessment and Plan: Resolved. Likely due to above. No further signs of PNA and I suspect the LE being the source, will stop Levaquin -Continue vancomycin -No fevers since 11/27/20 -no signs of UTI and no diarrhea (3) Fever: Qualifiers: Fever type: unspecified Qualified Code(s): R50.9 - Fever, unspecified Code(s): R50.9 - Fever, unspecified Status: Acute Assessment and Plan: As above -Blood cultures with NGTD (4) Pressure ulcer of right heel: Code(s): L89.619 - Pressure ulcer of right heel, unspecified stage Status: Acute Assessment and Plan: Continue wound tx,abx and waffle boots (5) Pressure ulcer of left heel: Code(s): L89.629 - Pressure ulcer of left heel, unspecified stage Status: Acute Assessment and Plan: Continue waffle boots (6) HTN (hypertension): Qualifiers: Hypertension type: essential hypertension Qualified Code(s): I10 - Essential (primary) hypertension Code(s): I10 - Essential (primary) hypertension Status: Acute Assessment and Plan: Last bp 107/79 (improved) - metoprolol restarted with parameters (7) Dementia: Qualifiers: Dementia type: Alzheimer's Alzheimer's disease onset: unspecified onset Dementia behavioral disturbance: without behavioral disturbance Qualified Code(s): G30.9 - Alzheimer's disease, unspecified; F02.80 - Dementia in other diseases classified elsewhere without behavioral disturbance Code(s): F03.90 - Unspecified dementia without behavioral disturbance Status: Acute Assessment and Plan: At baseline - Continue with namenda (8) Afib: Qualifiers: Atrial fibrillation type: paroxysmal Qualified Code(s): I48.0 - Paroxysmal atrial fibrillation Code(s): I48.91 - Unspecified atrial fibrillation Status: Chronic Assessment and Plan: Pt was in RVR likely due to infection and having to hold metoprolol made it worse -Cardiology was consulted and placed him on an amiodarone drip since he was anticoagulated and hypotensive - continue with their recommendations - will hold warfarin as INR is slightly supratherapeutic ( likely due to antibiotics) (9) CHF (congestive heart failure): Qualifiers: Heart failure type: systolic Heart failure chronicity: chronic Qualified Code(s): I50.22 - Chronic systolic (congestive) heart failure Code(s): I50.9 - Heart failure, unspecified Status: Acute Assessment and Plan: appears euvolemic - he does have some swelling in the right leg which I suspect is from infection and not representing heart failure (10) PNA (pneumonia): Code(s): J18.9 - Pneumonia, unspecified organism Status: Acute Assessment and Plan: no signs of pneumonia on further observation during the stay. Levaquin stopped as stated above Subjective Date/time seen: 11/30/20 14:11 Interval history: Pt is a 79-year-old male here for cellulitis. Patient is severely demented and was unable to answer any of my questions appropriately. it is reported that he is alert and oriented x1 at baseline which is what he was on exam. No new events reported by RN. Exam Narrative: Exam Narrative: General: Elderly patient resting in bed in no acute
[2020-11-30] MEDS: METOPROLOL TARTRATE 12.5 MG TABLET PO ×2 (14:18→22:30)
[2020-11-30 22:07] LABS: Vancomycin Trough 9.3 ug/mL (10.0-20.0)
[2020-12-01] VITALS (20 sets, daily range): BP systolic 112–126; BP diastolic 55–90; PULSE 53–112; RESP 16–18; TEMP 35.8–36.6; O2SAT 91–97
[2020-12-01 05:24] LABS: Hematocrit 33.7 % (42.0-52.0); Hemoglobin 10.5 g/dL (14.0-18.0); Mean Corpuscular HGB Conc 31.2 g/dl (32-36); Mean Corpuscular Hemoglobin 27.6 pg (26-34); Mean Corpuscular Volume 88.5 fl (80-100); Mean Platelet Volume 11.4 fl (7.4-10.4); Platelet Count Result 144 k/mm3 (150-375); Red Blood Count 3.81 M/mm3 (4.6-6.20); Red Cell Distribution Width 14.7 % (11.5-14.5); White Blood Count 9.3 K/mm3 (4.5-10.0)
[2020-12-01 05:34] LABS: INR 3.7; Prothrombin Time 35.4 Seconds (11.1-14.7)
[2020-12-01 05:42] LABS: Anion Gap 10 mmol/L (8-16); Blood Urea Nitrogen 33 mg/dL (9-20); Calcium 8.8 mg/dL (8.4-10.2); Carbon Dioxide 21 mmol/L (22-30); Chloride 107 mmol/L (98-107); Creatine Kinase 111 U/L (55-170); Estimated CRCL calculation 51 ml/min; Estimated Glomerular Filt Rate > 60; Glucose 107 mg/dL (65-110); Potassium 3.6 mmol/L (3.4-5.0); Sodium 138 mmol/L (137-145)
[2020-12-01] MEDS: METOPROLOL TARTRATE 12.5 MG TABLET PO ×3 (06:42→22:32)
[2020-12-01] MEDS: MEMANTINE 5 MG TABLET PO ×2 (10:02→22:32)
[2020-12-01] MEDS: FINASTERIDE 5 MG TABLET PO (10:02)
[2020-12-01] MEDS: COLLAGENASE OINT 30 GM TUBE 1 APPLIC TOPICAL (10:02)
[2020-12-01] MEDS: AMIODARONE 360 MG/D5W 200 ML 360 MG/200 ML BAG 16.67 MG IV CONT (10:12)
--- NOTE | 2020-12-01 11:50 | PM.PNCARD ---
Progress Note: A&P Assessment and Plan (1) Atrial fibrillation with RVR: Code(s): I48.91 - Unspecified atrial fibrillation Status: Acute Assessment and Plan: persistent atrial fibrillation Seen on EKG this admission and on EKG from previous hospitalization. We were consulted in the setting of AF with rapid ventricular response at a rate of 130-150. has been on chronic anticoagulation with warfarin. - currently heart rates are controlled. Bridged IV amiodarone to p.o. amiodarone with loading dose of p.o. amiodarone. Continue low-dose metoprolol. - Patient has been on chronic anticoagulation with warfarin. Current INR is 3.7, and warfarin has been held. Recommend switching warfarin to 1 of the direct oral anticoagulants -apixaban or rivaroxaban. (2) Systolic CHF, acute on chronic: Code(s): I50.23 - Acute on chronic systolic (congestive) heart failure Status: Acute Assessment and Plan: No echocardiogram in our system but per the medical record he has ejection fraction of 35%. On exam he does not appear to be in decompensated heart failure at this time. (3) HTN (hypertension): Qualifiers: Hypertension type: essential hypertension Qualified Code(s): I10 - Essential (primary) hypertension Code(s): I10 - Essential (primary) hypertension Status: Acute Assessment and Plan: At goal. Subjective Date/time seen: 12/01/20 11:50 Interval history: date of service 12/01/2020: Patient has dementia, and is unable to provide medical information. He is in atrial fibrillation with heart rates in 90s. He has been on IV amiodarone. Exam Narrative: Exam Narrative: PHYSICAL EXAMINATION: GENERAL: Mildly agitated MENTAL STATUS: mildly agitated EYES: Extraocular movements intact, pallor EARS: External ears appear normal, hearing grossly normal NOSE: Normal and patent, no discharge MOUTH: Mucous membranes moist NECK: Supple, no JVD CHEST: decreased respiratory effort HEART: Normal rate, irregularly irregular rhythm ABDOMEN: Soft, nontender NEUROLOGICAL: agitated MUSCULOSKELETAL: degenerative changes EXTREMITIES: right leg edema with discoloration SKIN: superficial wounds right lower ext PSYCHIATRIC: slightly agitated Objective Data Vital Signs Vital Signs: Vital Signs - 24 hr 11/30/20 12:00 11/30/20 14:00 11/30/20 14:18 Temperature 36.0 C L Pulse Rate 108 H 121 H 108 H Respiratory Rate 20 Blood Pressure 107/79 Pulse Oximetry 96 11/30/20 14:19 11/30/20 16:00 11/30/20 18:00 Temperature 36.5 C Pulse Rate 110 H 98 Respiratory Rate 20 Blood Pressure 114/74 95/58 L Pulse Oximetry 97 11/30/20 20:00 11/30/20 22:00 11/30/20 22:29 Temperature 36.4 C Pulse Rate 101 H 108 H 105 H Respiratory Rate 18 Blood Pressure 105/75 Pulse Oximetry 95 11/30/20 22:30 11/30/20 23:31 12/01/20 00:00 Temperature 36.8 C Pulse Rate 105 H 99 93 Respiratory Rate 18 Blood Pressure 107/68 Pulse Oximetry 95 12/01/20 02:00 12/01/20 04:00 12/01/20 06:00 Temperature 36.6 C Pulse Rate 100 107 H 109 H Respiratory Rate 16 Blood Pressure 118/60 Pulse Oximetry 95 12/01/20 06:42 12/01/20 08:00 12/01/20 10:12 Temperature 36.1 C L Pulse Rate 103 H 88 85 Respiratory Rate 18 Blood Pressure 126/90 Pulse Oximetry 91 Intake/Output Intake/Output: Intake & Output 11/28/20 11/29/20 11/30/20 12/01/20 23:59 23:59 23:59 23:59 Intake Total 2600 2030 1490 320 Output Total 200 Balance 2600 2030 1290 320 Meds/Results Medications: Active Medications Generic Name Dose Route Start Last Admin Trade Name Freq PRN Reason Stop Dose Admin Acetaminophen 650 mg 11/28/20 22:06 11/28/20 22:30 Acetaminophen 325 Mg Tablet PO 650 mg Q4H PRN Administration Fever Albuterol 5 mg 11/27/20 18:52 Albuterol Sulfate Neb 2.5 Mg/0.5 Ml Inh INHALATION Q6HRT PRN Bronc
--- NOTE | 2020-12-01 13:33 | PM.IMPN ---
Progress Note: A&P Assessment and Plan (1) Cellulitis: Code(s): L03.90 - Cellulitis, unspecified Status: Acute Assessment and Plan: Pt's right leg is erythematous, hot, swollen and painful -Continue vancomycin, seems to have improved and pt has been afebrile since 11/28 -Pt had significant pain and on warfarin. CT without hematoma but does show myositis. could be due to infection. No signs of compartment syndrome. -WBC 9.3 today. Blood cultures NGTD. -since bp is better, will give small dose of lasix to help with LE swelling. (2) Sepsis: Code(s): A41.9 - Sepsis, unspecified organism Status: Acute Assessment and Plan: Resolved. Likely due to above. No further signs of PNA and I suspect the LE being the source, Levaquin stopped -Continue vancomycin -No fevers since 11/27/20 -no signs of UTI and no diarrhea (3) Fever: Qualifiers: Fever type: unspecified Qualified Code(s): R50.9 - Fever, unspecified Code(s): R50.9 - Fever, unspecified Status: Acute Assessment and Plan: As above -Blood cultures with NGTD (4) Pressure ulcer of right heel: Code(s): L89.619 - Pressure ulcer of right heel, unspecified stage Status: Acute Assessment and Plan: Continue wound tx,abx and waffle boots (5) Pressure ulcer of left heel: Code(s): L89.629 - Pressure ulcer of left heel, unspecified stage Status: Acute Assessment and Plan: Continue waffle boots (6) HTN (hypertension): Qualifiers: Hypertension type: essential hypertension Qualified Code(s): I10 - Essential (primary) hypertension Code(s): I10 - Essential (primary) hypertension Status: Acute Assessment and Plan: Last bp 126/90 - metoprolol restarted with parameters (7) Dementia: Qualifiers: Dementia type: Alzheimer's Alzheimer's disease onset: unspecified onset Dementia behavioral disturbance: without behavioral disturbance Qualified Code(s): G30.9 - Alzheimer's disease, unspecified; F02.80 - Dementia in other diseases classified elsewhere without behavioral disturbance Code(s): F03.90 - Unspecified dementia without behavioral disturbance Status: Acute Assessment and Plan: At baseline - Continue with namenda (8) Afib: Qualifiers: Atrial fibrillation type: paroxysmal Qualified Code(s): I48.0 - Paroxysmal atrial fibrillation Code(s): I48.91 - Unspecified atrial fibrillation Status: Chronic Assessment and Plan: Pt was in RVR likely due to infection and having to hold metoprolol made it worse -Cardiology was consulted and placed him on an amiodarone drip since he was anticoagulated and hypotensive - continue with their recommendations; currently on amidoarone drip and metoprolol 12.5Q8h - will hold warfarin as INR is supratherapeutic ( likely due to antibiotics). Cardiology recommends transitioning to DOAC. Will start that once he drops below 2 (9) CHF (congestive heart failure): Qualifiers: Heart failure type: systolic Heart failure chronicity: chronic Qualified Code(s): I50.22 - Chronic systolic (congestive) heart failure Code(s): I50.9 - Heart failure, unspecified Status: Acute Assessment and Plan: appears euvolemic - he does have some swelling in the right leg which I suspect is from infection and not representing heart failure (10) PNA (pneumonia): Code(s): J18.9 - Pneumonia, unspecified organism Status: Acute Assessment and Plan: no signs of pneumonia on further observation during the stay. Levaquin stopped as stated above Subjective Date/time seen: 12/01/20 13:33 Interval history: Pt is a 79-year-old male here for cellulitis. Patient is severely demented and was unable to answer any of my questions appropriately. it is reported that he is alert and oriented x1 a
[2020-12-01] MEDS: FUROSEMIDE 20 MG TABLET PO (17:22)
[2020-12-01] MEDS: AMIODARONE HCL 200 MG TABLET 400 MG PO (17:23)
[2020-12-02] VITALS (21 sets, daily range): BP systolic 95–121; BP diastolic 70–85; PULSE 84–109; RESP 16–22; TEMP 35.7–36.6; O2SAT 94–98
[2020-12-02] MEDS: COLLAGENASE OINT 30 GM TUBE 1 APPLIC TOPICAL ×3 (03:30→21:23)
[2020-12-02 05:00] LABS: Anion Gap 9 mmol/L (8-16); Blood Urea Nitrogen 42 mg/dL (9-20); Calcium 8.3 mg/dL (8.4-10.2); Carbon Dioxide 18 mmol/L (22-30); Chloride 111 mmol/L (98-107); Estimated CRCL calculation 44 ml/min; Estimated Glomerular Filt Rate 53; Glucose 91 mg/dL (65-110); Magnesium 2.2 mg/dL (1.6-2.3); Sodium 138 mmol/L (137-145)
[2020-12-02 05:01] LABS: INR 3.1; Prothrombin Time 31.2 Seconds (11.1-14.7)
[2020-12-02] MEDS: METOPROLOL TARTRATE 12.5 MG TABLET PO ×2 (06:42→17:54)
--- NOTE | 2020-12-02 08:03 | PM.IMPN ---
Progress Note: A&P Assessment and Plan (1) Cellulitis: Code(s): L03.90 - Cellulitis, unspecified Status: Acute Assessment and Plan: Pt's right leg is erythematous, hot, swollen and painful but improving since admission. -He now has purulent discharge to the lateral aspect from one of the wounds. Will ask wound to see him tomorrow. No evidence of osteomyelitis on CT or xray. Pt would not be able to sit still for an MRI -Continue vancomycin, seems to have improved and pt has been afebrile since 11/28 -CT without hematoma but does show myositis. could be due to infection. No signs of compartment syndrome. CK now normal -WBC 9.3 Blood cultures NGTD. (2) Sepsis: Code(s): A41.9 - Sepsis, unspecified organism Status: Acute Assessment and Plan: Resolved. Likely due to above. No further signs of PNA and I suspect the LE being the source, Levaquin stopped -Continue vancomycin -No fevers since 11/28/20 -no signs of UTI and no diarrhea (3) Fever: Qualifiers: Fever type: unspecified Qualified Code(s): R50.9 - Fever, unspecified Code(s): R50.9 - Fever, unspecified Status: Acute Assessment and Plan: As above -Blood cultures with NGTD (4) Pressure ulcer of right heel: Code(s): L89.619 - Pressure ulcer of right heel, unspecified stage Status: Acute Assessment and Plan: Continue wound tx,abx and waffle boots (5) Pressure ulcer of left heel: Code(s): L89.629 - Pressure ulcer of left heel, unspecified stage Status: Acute Assessment and Plan: Continue waffle boots (6) HTN (hypertension): Qualifiers: Hypertension type: essential hypertension Qualified Code(s): I10 - Essential (primary) hypertension Code(s): I10 - Essential (primary) hypertension Status: Acute Assessment and Plan: Last bp 98/71 - metoprolol restarted with parameters but looks like nursing staff gave it this morning at 6:42 with last recorded bp 98/71. They may have rechecked a bp prior to giving the metoprolol without recording it? Will notify nursing staff about parameters. (7) Dementia: Qualifiers: Dementia type: Alzheimer's Alzheimer's disease onset: unspecified onset Dementia behavioral disturbance: without behavioral disturbance Qualified Code(s): G30.9 - Alzheimer's disease, unspecified; F02.80 - Dementia in other diseases classified elsewhere without behavioral disturbance Code(s): F03.90 - Unspecified dementia without behavioral disturbance Status: Acute Assessment and Plan: At baseline - Continue with namenda (8) Afib: Qualifiers: Atrial fibrillation type: paroxysmal Qualified Code(s): I48.0 - Paroxysmal atrial fibrillation Code(s): I48.91 - Unspecified atrial fibrillation Status: Chronic Assessment and Plan: Pt was in RVR likely due to infection and having to hold metoprolol made it worse -Cardiology was consulted and placed him on an amiodarone drip since he was anticoagulated and hypotensive. now on oral amidoarone - continue with their recommendations - will hold warfarin as INR is supratherapeutic ( likely due to antibiotics). Cardiology recommends transitioning to DOAC. Will start that once he drops below 2 (9) CHF (congestive heart failure): Qualifiers: Heart failure type: systolic Heart failure chronicity: chronic Qualified Code(s): I50.22 - Chronic systolic (congestive) heart failure Code(s): I50.9 - Heart failure, unspecified Status: Acute Assessment and Plan: appears euvolemic - he does have some swelling in the right leg which I suspect is from infection and not representing heart failure (10) PNA (pneumonia): Code(s): J18.9 - Pneumonia, unspecified organism Status: Acute Assessment and Plan: no signs of pneumonia on further observation d
--- NOTE | 2020-12-02 10:30 | PM.PNCARD ---
Progress Note: A&P Assessment and Plan (1) Atrial fibrillation with RVR: Code(s): I48.91 - Unspecified atrial fibrillation Status: Acute Assessment and Plan: persistent atrial fibrillation Seen on EKG this admission and on EKG from previous hospitalization. We were consulted in the setting of AF with rapid ventricular response at a rate of 130-150. has been on chronic anticoagulation with warfarin. - currently heart rates are controlled. Discontinue IV amiodarone and continue loading dose of amiodarone p.o.. Continue low-dose metoprolol. - Patient has been on chronic anticoagulation with warfarin. Current INR is 3.1, and warfarin has been held. Recommend switching warfarin to 1 of the direct oral anticoagulants when INR is less than 2. (2) Systolic CHF, acute on chronic: Code(s): I50.23 - Acute on chronic systolic (congestive) heart failure Status: Acute Assessment and Plan: No echocardiogram in our system but per the medical record he has ejection fraction of 35%. On exam he does not appear to be in decompensated heart failure at this time. (3) HTN (hypertension): Qualifiers: Hypertension type: essential hypertension Qualified Code(s): I10 - Essential (primary) hypertension Code(s): I10 - Essential (primary) hypertension Status: Acute Assessment and Plan: At goal. Management of other active medical problems as per primary team. Subjective Date/time seen: 12/02/20 10:30 Interval history: date of service 12/01/2020: Patient has dementia, and is unable to provide medical information. He is in atrial fibrillation with heart rates in 90s. He has been on IV amiodarone. Date of service: 12/02/2020 Interval history: patient is somnolent at the time of evaluation, denies chest pain or shortness of breath. On telemetry, he is in atrial fibrillation with heart rates in 70s and 80s. Exam Narrative: Exam Narrative: PHYSICAL EXAMINATION: GENERAL: Somnolent MENTAL STATUS: somnolent EYES: eyes closed EARS: External ears appear normal NOSE: Normal and patent, no discharge MOUTH: Mucous membranes moist NECK: Supple, no JVD CHEST: decreased respiratory effort HEART: Normal rate, irregularly irregular rhythm ABDOMEN: Soft, nontender NEUROLOGICAL: agitated MUSCULOSKELETAL: degenerative changes EXTREMITIES: right leg edema with discoloration SKIN: superficial wounds right lower ext PSYCHIATRIC: slightly agitated Objective Data Vital Signs Vital Signs: Vital Signs - 24 hr 12/01/20 12:00 12/01/20 12:01 12/01/20 14:00 Temperature 35.8 C L Pulse Rate 53 L 99 Respiratory Rate 18 Blood Pressure 118/78 Pulse Oximetry 97 97 12/01/20 15:35 12/01/20 16:00 12/01/20 17:22 Temperature 36.1 C L Pulse Rate 96 104 H 97 Respiratory Rate 18 Blood Pressure 114/55 L Pulse Oximetry 97 12/01/20 17:23 12/01/20 18:00 12/01/20 20:00 Temperature 36.2 C L Pulse Rate 97 95 97 Respiratory Rate 16 Blood Pressure 113/76 Pulse Oximetry 95 12/01/20 22:00 12/01/20 22:32 12/01/20 23:25 Temperature 36.4 C Pulse Rate 93 100 106 H Respiratory Rate 18 Blood Pressure 112/79 Pulse Oximetry 95 12/02/20 00:00 12/02/20 02:00 12/02/20 04:00 Temperature 36.4 C L Pulse Rate 100 93 91 Respiratory Rate 16 Blood Pressure 98/71 L Pulse Oximetry 97 12/02/20 06:00 12/02/20 06:42 12/02/20 08:53 Temperature 36.0 C L Pulse Rate 91 107 H 106 H Respiratory Rate 18 Blood Pressure 115/76 Pulse Oximetry 96 Intake/Output Intake/Output: Intake & Output 11/29/20 11/30/20 12/01/20 12/02/20 23:59 23:59 23:59 23:59 Intake Total 2029 1490 1290 480 Output Total 200 Balance 2029 1290 1290 480 Meds/Results Medications: Active Medications Generic Name Dose Route Start Last Admin Trade Name Freq PRN Reason Stop Dose Admin Acetaminophen 650 mg 11/28/20 22:06 11/09
[2020-12-02] MEDS: FINASTERIDE 5 MG TABLET PO (12:11)
[2020-12-02] MEDS: MEMANTINE 5 MG TABLET PO ×2 (12:11→21:22)
[2020-12-02] MEDS: AMIODARONE HCL 200 MG TABLET 400 MG PO ×2 (12:11→17:54)
[2020-12-03] VITALS (16 sets, daily range): BP systolic 90–135; BP diastolic 57–76; PULSE 57–99; RESP 16–22; TEMP 36–36.8; O2SAT 97–99
[2020-12-03 05:55] LABS: Anion Gap 9 mmol/L (8-16); Blood Urea Nitrogen 49 mg/dL (9-20); Calcium 8.1 mg/dL (8.4-10.2); Carbon Dioxide 23 mmol/L (22-30); Chloride 107 mmol/L (98-107); Estimated CRCL calculation 44 ml/min; Estimated Glomerular Filt Rate 53; Glucose 95 mg/dL (65-110); INR 2.7; Potassium 3.9 mmol/L (3.4-5.0); Prothrombin Time 28.3 Seconds (11.1-14.7); Sodium 139 mmol/L (137-145)
[2020-12-03] MEDS: MEMANTINE 5 MG TABLET PO ×2 (09:15→22:14)
[2020-12-03] MEDS: FINASTERIDE 5 MG TABLET PO (09:15)
[2020-12-03] MEDS: AMIODARONE HCL 200 MG TABLET 400 MG PO ×2 (09:15→17:16)
[2020-12-03] MEDS: COLLAGENASE OINT 30 GM TUBE 1 APPLIC TOPICAL ×2 (09:16→22:17)
--- NOTE | 2020-12-03 09:53 | PM.IMPN ---
Progress Note: A&P Assessment and Plan (1) Cellulitis: Code(s): L03.90 - Cellulitis, unspecified Status: Acute Assessment and Plan: Pt's right leg was erythematous, hot, swollen and painful but has made a lot of improvement with swelling and erythema since admission -He now has purulent discharge to the lateral aspect from one of the wounds. I have spoken to wound care who did see evidence of a pus pocket and recommended sx consult. No evidence of osteomyelitis on CT or xray on admission but patient was more confused and was moving a lot for the CT. Pt would not be able to sit still for an MRI -Continue vancomycin, seems to have improved and pt has been afebrile since 11/28 -CT without hematoma but does show myositis. Likely be due to infection. No signs of compartment syndrome. CK now normal -WBC 9.3 Blood cultures NGTD. (2) Sepsis: Code(s): A41.9 - Sepsis, unspecified organism Status: Acute Assessment and Plan: Resolved. Likely due to above. No further signs of PNA and I suspect the LE being the source, Levaquin stopped early on in the stay -Continue vancomycin -No fevers since 11/28/20 -no signs of UTI and no diarrhea (3) Fever: Qualifiers: Fever type: unspecified Qualified Code(s): R50.9 - Fever, unspecified Code(s): R50.9 - Fever, unspecified Status: Acute Assessment and Plan: resolved, as above -Blood cultures with NGTD (4) Pressure ulcer of right heel: Code(s): L89.619 - Pressure ulcer of right heel, unspecified stage Status: Acute Assessment and Plan: Continue wound tx,abx and waffle boots (5) Pressure ulcer of left heel: Code(s): L89.629 - Pressure ulcer of left heel, unspecified stage Status: Acute Assessment and Plan: Continue waffle boots (6) HTN (hypertension): Qualifiers: Hypertension type: essential hypertension Qualified Code(s): I10 - Essential (primary) hypertension Code(s): I10 - Essential (primary) hypertension Status: Acute Assessment and Plan: Last bp 123/73 - metoprolol restarted with parameters. Should help with the NSVT noted yesterday, I spoke with cardiology about this (7) Dementia: Qualifiers: Dementia type: Alzheimer's Alzheimer's disease onset: unspecified onset Dementia behavioral disturbance: without behavioral disturbance Qualified Code(s): G30.9 - Alzheimer's disease, unspecified; F02.80 - Dementia in other diseases classified elsewhere without behavioral disturbance Code(s): F03.90 - Unspecified dementia without behavioral disturbance Status: Acute Assessment and Plan: At baseline - Continue with namenda (8) Afib: Qualifiers: Atrial fibrillation type: paroxysmal Qualified Code(s): I48.0 - Paroxysmal atrial fibrillation Code(s): I48.91 - Unspecified atrial fibrillation Status: Chronic Assessment and Plan: Pt was in RVR likely due to infection and having to hold metoprolol made it worse -Cardiology was consulted and placed him on an amiodarone drip since he was anticoagulated and hypotensive. now on oral amidoarone - continue with their recommendations - will hold warfarin as INR is supratherapeutic ( likely due to antibiotics). Cardiology recommends transitioning to DOAC. Will start that once he drops below 2 (9) CHF (congestive heart failure): Qualifiers: Heart failure type: systolic Heart failure chronicity: chronic Qualified Code(s): I50.22 - Chronic systolic (congestive) heart failure Code(s): I50.9 - Heart failure, unspecified Status: Acute Assessment and Plan: appears euvolemic - he does have some swelling in the right leg (that is improved) which I suspect is from infection and not representing heart failure (10) PNA (pneumonia): Code(s): J18.9 - Pneumonia, unspecified organism
--- NOTE | 2020-12-03 11:40 | PCDIET ---
Nutrition Follow-Up Complete: Nutrition Diagnosis: Increased protein needs related to wounds as evidenced by unstageable pressure ulcers. Nutrition Goal: Meet estimated nutritional needs. Goal in progress. Patient has consumed an average of 73% of meals since 12/01/20 on minced and moist, level 5 diet with Beni BID and Ensure Enlive 1x daily. Nurse aid reports patient eats well every time she feeds him and has been taking supplements. Last recorded weight is 83.8 kg. Recommend obtaining new weight. Bowel Motility: Last documented BM on 11/29/20 x 2. Labs Reviewed: Brea [place] (8.9) Meds Noted: Amiodarone, Proscar, Namenda, Vancomycin, Coumadin Additional Notes: Right leg ulcer documented. Bilateral heels also with unstageable ulcers. Will continue to monitor with same goals. Nutrition Monitoring and Evaluation: Follow up in 5 days.
--- NOTE | 2020-12-03 12:07 | PM.CNGS ---
Assessment and Plan Assessment and plan (1) Wound of right lower extremity: Code(s): S81.801A - Unspecified open wound, right lower leg, initial encounter Status: Acute Assessment and Plan: recommend packing and local wound care, cleaned and drained at bedside, cont abx, wound cx, given multiple comorbidities hesitant to further open wound as pt would likely not heal, currently seems to be improving c abx, wound drainage and care, will follow History of Present Illness Consult details Consult date: 12/03/20 Reason for consult: wound care Requesting physician: Bety Arshad PA-C Narrative: Pt is a 79 y/o M c multiple med issues including dementia presenting c sepsis of unknown origin. Pt found to have high fevers, mental status changes at [facility]. Pt largely non-verbal and history obtained via chart. Pt c h/o bilateral decubitus heel ulcers. Pt also c h/o urosepsis. Pt has open wound on RLE draining purulent material and we are consulted for further eval. Of note, since admit and IV abx, the pt leukocytosis and fevers have resolved. All blood cx negative to date. Review of Systems Review of Systems: ROS unobtainable: Yes unobtainable due to mental status PMFSH Past Medical History Medical History Afib Ankle fracture, left Arthritis BPH (benign prostatic hyperplasia) Cancer Cataracts, bilateral CHF (congestive heart failure) Chicken pox Dementia Eczema Frequent nosebleeds History of blood transfusion HTN (hypertension) Irregular heart beat Mumps Pneumonia Shingles Thoracic aortic aneurysm Ventral hernia Surgical History Surgical History History of cataract surgery History of inguinal hernia repair Family History Family History Sibling Family history of gastrointestinal disorder Mother Acute myocardial infarction Father Family history of lung cancer Family history of emphysema Social History Social History Social History: The patient is from [facility]. The patient is noted to be retired and he is listed as being . The patient is listed as a DNR. He has a daughter is listed as next of kin for contact worker. Smoking status: Smoker, status unknown Alcohol intake: unknown Substance use: never Substance use type: unknown Gender identity (if verbalized by the patient): Male Spiritual care concerns: No Agree to blood products: Yes Meds Home Medications and Allergies Home Medications Medication Instructions Recorded Confirmed Type finasteride 5 mg PO DAILY 07/16/19 11/27/20 History donepezil 10 mg tablet 10 mg PO HS #30 tablet 05/29/20 11/27/20 Rx acetaminophen [Mapap 650 mg PO Q4H PRN #30 tablet 07/16/20 11/27/20 Rx (acetaminophen)] furosemide 20 mg PO DAILY #30 tablet 07/16/20 11/27/20 Rx Arginaid 4.5 g PO BID 09/27/20 11/27/20 History bisacodyl 10 mg RECTAL DAILY PRN 09/27/20 11/27/20 History lorazepam [Ativan] 0.5 mg PO TID PRN 09/27/20 11/27/20 History multivitamin with minerals [Daily 1 tablet PO DAILY 09/27/20 11/27/20 History Multivitamin-Minerals] metoprolol tartrate 12.5 mg PO DAILY #30 tablet 10/03/20 11/27/20 Rx memantine 5 mg tablet 5 mg PO BID 10/16/20 11/27/20 History warfarin 4 mg PO DAILY 11/27/20 11/27/20 History warfarin See Rx Instructions .ROUTE .COMPLEX 11/27/20 11/27/20 History Allergies Allergy/AdvReac Type Severity Reaction Status Date / Time amoxicillin Allergy Intermediate Rash Verified 11/27/20 20:50 codeine Allergy Intermediate Unknown Verified 11/27/20 20:50 quinidine Allergy Mild RASH Verified 11/27/20 20:50 enalapril Allergy Unknown Unknown Verified 11/27/20 20:50 Penicillins Allergy Unknown Unknown Verified 11/27/20 20:50 Vital Signs Vital Signs - 24 hr 12/02/20 12:11 12/02/20 12:5
--- NOTE | 2020-12-03 13:01 | PM.PNCARD ---
Progress Note: A&P Assessment and Plan (1) Atrial fibrillation with RVR: Code(s): I48.91 - Unspecified atrial fibrillation Status: Acute Assessment and Plan: persistent atrial fibrillation Seen on EKG this admission and on EKG from previous hospitalization. We were consulted in the setting of AF with rapid ventricular response at a rate of 130-150. has been on chronic anticoagulation with warfarin. - currently heart rates are controlled. Continue Amio 400mg p.o. BID. Continue low-dose metoprolol. - Patient has been on chronic anticoagulation with warfarin. Current INR is 2.7, and warfarin has been held. Recommend switching warfarin to one of the direct oral anticoagulants when INR is less than 2. (2) Systolic CHF, acute on chronic: Code(s): I50.23 - Acute on chronic systolic (congestive) heart failure Status: Acute Assessment and Plan: No echocardiogram in our system but per the medical record he has ejection fraction of 35%. On exam he does not appear to be in decompensated heart failure at this time. (3) HTN (hypertension): Qualifiers: Hypertension type: essential hypertension Qualified Code(s): I10 - Essential (primary) hypertension Code(s): I10 - Essential (primary) hypertension Status: Acute Assessment and Plan: At goal. Management of other active medical problems as per primary team. Subjective Date/time seen: 12/03/20 13:01 Interval history: Date of service 12/01/2020: Patient has dementia, and is unable to provide medical information. He is in atrial fibrillation with heart rates in 90s. He has been on IV amiodarone. Date of service: 12/02/2020 Interval history: patient is somnolent at the time of evaluation, denies chest pain or shortness of breath. On telemetry, he is in atrial fibrillation with heart rates in 70s and 80s. Date of service 12/03/2020: Patient a little bit more alert today. Able to answer some questions today. He denies any chest pain, palpitations. Denies shortness of breath. nonsustained V-tach noted on telemetry yesterday. Has not had any significant ectopy since that run. Review of Systems Review of Systems: ROS unobtainable: Yes unobtainable due to mental status Exam Const: General: comfortable and no acute distress HENMT: Head: normal to inspection Eyes: General: appearance normal, both eyes and all related structures Sclera: sclerae normal Neck: Neck: supple and no JVD Resp: Auscultation: clear to auscultation bilaterally and diminished lung sounds Cardio: Rate: tachycardic Rhythm: abnormal rhythm irregularly irregular GI: Auscultation: normal bowel sounds Skin: General skin exam: normal color Wounds: wounds noted Neuro: Cognition (Neuro): abnormal cognition Speech: No normal speech Extrem: General: abnormal to inspection, edema and pedal edema Psych: Mental Status: mental status grossly abnormal Objective Data Vital Signs Vital Signs: Vital Signs - 24 hr 12/02/20 14:00 12/02/20 16:00 12/02/20 17:24 Temperature 36.1 C L Pulse Rate 92 90 91 Respiratory Rate 20 Blood Pressure 121/82 Pulse Oximetry 95 96 12/02/20 17:54 12/02/20 18:00 12/02/20 19:43 Temperature 36.3 C L Pulse Rate 105 H 106 H 104 H Respiratory Rate 22 H Blood Pressure 105/73 Pulse Oximetry 94 12/02/20 20:00 12/02/20 21:27 12/02/20 22:00 Temperature Pulse Rate 109 H 92 Respiratory Rate Blood Pressure 95/80 L Pulse Oximetry 12/02/20 23:53 12/03/20 00:00 12/03/20 02:00 Temperature 36.6 C Pulse Rate 98 89 92 Respiratory Rate 20 Blood Pressure 118/85 Pulse Oximetry 96 12/03/20 04:00 12/03/20 05:44 12/03/20 06:00 Temperature 36.4 C Pulse Rate 89 81 Respiratory Rate 18 Blood Pressure 118/64 101/73 Pulse Oximetry 99 12/03/20 08:00 12/03/20 09:15 12/03/20 10:00 Temperature 36.0 C L Pulse Rate 87 81 86 Respiratory Rate [address]
[2020-12-03] MEDS: SILVERGEL (ELTA) 45 ML 1 APPLIC TOPICAL (15:18)
--- NOTE | 2020-12-03 18:23 | PC.NURSE ---
This patient, Abraham Garland, was transferred to [facility] on 12/03/20 at 1818. Personal belongings sent with patient. Report given to DIANE Torres. Appropriate documentation sent with patient.
--- NOTE | 2020-12-03 18:25 | PC.NURSE ---
This patient, Abraham Garland, was received from [id number] on 12/03/20 at 1825. Patient/family oriented to unit policies and routines
[2020-12-03 22:49] LABS: Vancomycin Trough 18.4 ug/mL (10.0-20.0)
[2020-12-04] VITALS (11 sets, daily range): BP systolic 92–95; BP diastolic 69–70; PULSE 72–98; RESP 18–26; TEMP 36.1–36.4; O2SAT 95–98
[2020-12-04 06:33] LABS: Basophils Absolute Auto 0.1 K/mm3 (0.0-0.1); Basophils Percent Auto 0.6 % (0.2-1.2); Eosinophils Absolute Auto 0.3 K/mm3 (0-0.3); Eosinophils Percent Auto 3.7 % (0-4.4); Hemoglobin 10.4 g/dL (14.0-18.0); Immature Granulocyte Absolute 0.06 K/mm3 (0.00-0.031); Immature Granulocyte Percent A 0.7 % (0-0.5); Lymphocytes Absolute Auto 1.86 K/mm3 (0.9-3.2); Lymphocytes Percent Auto 21.7 % (18.3-44.2); Mean Corpuscular HGB Conc 32.5 g/dl (32-36); Mean Corpuscular Hemoglobin 27.4 pg (26-34); Mean Corpuscular Volume 84.4 fl (80-100); Monocytes Absolute Auto 0.7 K/mm3 (0.1-0.6); Monocytes Percent Auto 8.2 % (2.6-8.5); Neutrophils Absolute Auto 5.6 K/mm3 (1.3-6.7); Neutrophils Percent Auto 65.1 % (45.5-73.1); Platelet Count Result 181 k/mm3 (150-375); Red Blood Count 3.79 M/mm3 (4.6-6.20); Red Cell Distribution Width 14.7 % (11.5-14.5); White Blood Count 8.6 K/mm3 (4.5-10.0)
[2020-12-04 06:43] LABS: INR 2.3; Prothrombin Time 24.5 Seconds (11.1-14.7)
[2020-12-04 06:47] LABS: Anion Gap 6 mmol/L (8-16); Blood Urea Nitrogen 56 mg/dL (9-20); Carbon Dioxide 22 mmol/L (22-30); Chloride 109 mmol/L (98-107); Estimated CRCL calculation 41 ml/min; Estimated Glomerular Filt Rate 49; Glucose 98 mg/dL (65-110); Sodium 137 mmol/L (137-145)
[2020-12-04] MEDS: SODIUM CHLORIDE 0.9% IV 500 ML 100 ML IV CONT (08:17)
[2020-12-04] MEDS: AMIODARONE HCL 200 MG TABLET 400 MG PO ×2 (10:09→18:01)
[2020-12-04] MEDS: FINASTERIDE 5 MG TABLET PO (10:11)
[2020-12-04] MEDS: COLLAGENASE OINT 30 GM TUBE 1 APPLIC TOPICAL (10:11)
[2020-12-04] MEDS: MEMANTINE 5 MG TABLET PO (10:11)
[2020-12-04] MEDS: SILVERGEL (ELTA) 45 ML 1 APPLIC TOPICAL (10:11)
--- NOTE | 2020-12-04 11:54 | PM.PNCARD ---
Progress Note: A&P Assessment and Plan (1) Atrial fibrillation with RVR: Code(s): I48.91 - Unspecified atrial fibrillation Status: Acute Assessment and Plan: persistent atrial fibrillation Seen on EKG this admission and on EKG from previous hospitalization. We were consulted in the setting of AF with rapid ventricular response at a rate of 130-150. has been on chronic anticoagulation with warfarin. - currently heart rates are controlled. Continue Amio 400mg p.o. BID. Continue low-dose metoprolol. - Patient has been on chronic anticoagulation with warfarin. Current INR is 2.3, and warfarin has been held. Recommend switching warfarin to one of the direct oral anticoagulants when INR is less than 2. (2) Systolic CHF, acute on chronic: Code(s): I50.23 - Acute on chronic systolic (congestive) heart failure Status: Acute Assessment and Plan: No echocardiogram in our system but per the medical record he has ejection fraction of 35%. On exam he does not appear to be in decompensated heart failure at this time. (3) HTN (hypertension): Qualifiers: Hypertension type: essential hypertension Qualified Code(s): I10 - Essential (primary) hypertension Code(s): I10 - Essential (primary) hypertension Status: Acute Assessment and Plan: At goal. Management of other active medical problems as per primary team. Subjective Date/time seen: 12/04/20 11:54 Interval history: Date of service 12/01/2020: Patient has dementia, and is unable to provide medical information. He is in atrial fibrillation with heart rates in 90s. He has been on IV amiodarone. Date of service: 12/02/2020 Interval history: patient is somnolent at the time of evaluation, denies chest pain or shortness of breath. On telemetry, he is in atrial fibrillation with heart rates in 70s and 80s. Date of service 12/03/2020: Patient a little bit more alert today. Able to answer some questions today. He denies any chest pain, palpitations. Denies shortness of breath. nonsustained V-tach noted on telemetry yesterday. Has not had any significant ectopy since that run. Date of service 12/04/2020: No chest pain or shortness of breath today. No complaints of any kind. Review of Systems Review of Systems: ROS unobtainable: Yes unobtainable due to mental status Exam Const: General: comfortable and no acute distress HENMT: Head: normal to inspection Eyes: General: appearance normal, both eyes and all related structures Sclera: sclerae normal Neck: Neck: supple and no JVD Resp: Auscultation: clear to auscultation bilaterally and diminished lung sounds Cardio: Rate: regular rate Rhythm: abnormal rhythm irregularly irregular GI: GI Palp: Yes Soft to palpation Auscultation: normal bowel sounds Skin: General skin exam: normal color Wounds: wounds noted Neuro: Cognition (Neuro): abnormal cognition Speech: No normal speech Extrem: General: abnormal to inspection, no edema and no pedal edema Psych: Mental Status: mental status grossly abnormal Objective Data Vital Signs Vital Signs: Vital Signs - 24 hr 12/03/20 12:00 12/03/20 14:00 12/03/20 15:17 Temperature 36.5 C Pulse Rate 57 L 87 87 Respiratory Rate 20 Blood Pressure 96/58 L Pulse Oximetry 98 12/03/20 16:00 12/03/20 17:16 12/03/20 18:57 Temperature 36.2 C L 36.4 C L Pulse Rate 85 87 90 Respiratory Rate 20 16 Blood Pressure 135/76 107/73 Pulse Oximetry 98 97 12/03/20 20:00 12/03/20 22:00 12/04/20 00:00 Temperature 36.8 C Pulse Rate 99 71 98 Respiratory Rate 18 Blood Pressure 90/57 L Pulse Oximetry 98 12/04/20 04:00 12/04/20 05:36 12/04/20 06:00 Temperature 36.1 C L Pulse Rate 87 80 72 Respiratory Rate 18 Blood Pressure 95/69 L Pulse Oximetry 95 12/04/20 10:09 12/04/20 10:48 Temperature Pulse Rate 85 Respiratory Rate Blood Pressure Pulse Oximetry 95 Int
--- NOTE | 2020-12-04 13:52 | PM.DS ---
DS: Admitting Diagnosis Admitting Diagnosis cellulitis DS: Discharge Diagnosis Discharge Diagnosis (1) Cellulitis: Code(s): L03.90 - Cellulitis, unspecified Status: Acute Assessment and Plan: Pt's right leg was erythematous, hot, swollen and painful but has made a lot of improvement with swelling and erythema since admission -He then had purulent drainage to the lateral aspect of his leg and sx was consulted. Wound care did a bedside debridement and packed with iodoform gauze. No evidence of osteomyelitis on CT or xray on admission but patient was more confused and was moving a lot for the CT. Pt would not be able to sit still for an MRI. Recommend continuing wound care at facility -Pt finished vancomycin. He remained afebrile and WBC returned to normal -CT without hematoma but does show myositis. Likely be due to infection. No signs of compartment syndrome. CK now normal. symptoms much improved -WBC 8.6 Blood cultures negative (2) Sepsis: Code(s): A41.9 - Sepsis, unspecified organism Status: Acute Assessment and Plan: Resolved. Due to above -Pt finished vancomycin -No fevers since 11/28/20 -no signs of UTI and no diarrhea (3) Fever: Qualifiers: Fever type: unspecified Qualified Code(s): R50.9 - Fever, unspecified Code(s): R50.9 - Fever, unspecified Status: Acute Assessment and Plan: resolved, as above -Blood cultures negative (4) Pressure ulcer of right heel: Code(s): L89.619 - Pressure ulcer of right heel, unspecified stage Status: Acute Assessment and Plan: continue off loading heels (5) Pressure ulcer of left heel: Code(s): L89.629 - Pressure ulcer of left heel, unspecified stage Status: Acute Assessment and Plan: as above (6) HTN (hypertension): Qualifiers: Hypertension type: essential hypertension Qualified Code(s): I10 - Essential (primary) hypertension Code(s): I10 - Essential (primary) hypertension Status: Acute Assessment and Plan: Last bp 92/70 but aysmptomatic. Pt runs soft from time to time -continue metoprolol. Pt did have NSVT during his stay (7) Dementia: Qualifiers: Alzheimer's disease onset: unspecified onset Dementia behavioral disturbance: without behavioral disturbance Dementia type: Alzheimer's Qualified Code(s): G30.9 - Alzheimer's disease, unspecified; F02.80 - Dementia in other diseases classified elsewhere without behavioral disturbance Code(s): F03.90 - Unspecified dementia without behavioral disturbance Status: Acute Assessment and Plan: At baseline - Continue with namenda (8) Afib: Qualifiers: Atrial fibrillation type: paroxysmal Qualified Code(s): I48.0 - Paroxysmal atrial fibrillation Code(s): I48.91 - Unspecified atrial fibrillation Status: Chronic Assessment and Plan: Noted to be in RVR with hypotnesion. -Cardiology was consulted and placed him on an amiodarone drip since he was anticoagulated and hypotensive. now on oral amidoarone -pt started on eliquis once his INR drops below 2. NH informed (9) CHF (congestive heart failure): Qualifiers: Heart failure chronicity: chronic Heart failure type: systolic Qualified Code(s): I50.22 - Chronic systolic (congestive) heart failure Code(s): I50.9 - Heart failure, unspecified Status: Acute Assessment and Plan: appears euvolemic - he does have some swelling in the right leg (that is improved) which I suspect is from infection and not representing heart failure (10) PNA (pneumonia): Code(s): J18.9 - Pneumonia, unspecified organism Status: Acute Assessment and Plan: no signs of pneumonia on further observation during the stay. Levaquin stopped as stated above DS: Summary Hospital Course Hospital Course: patient is an 79-year-
[2020-12-04] MEDS: IPRATROPIUM BR 0.02% INH SOLN 0.5 MG/2.5 ML VIAL INHALATION (18:01)
[2020-12-04] MEDS: ALBUTEROL SULFATE NEB 2.5 MG/0.5 ML INH 5 MG INHALATION (18:01)
== END 2020-12-04 18:25 | DRG 570 ==
LOC: ANHED 19:08 → ANH3MEDSUR 11-28 01:12 → ANHIMU 11-29 18:28 → ANH3MEDSUR 12-04 13:52 → ANHIMU 12-06 10:56
PROVIDERS: Nurse Practitioner; Admitting Provider Internal Medicine; Emergency Provider Family Medicine; PCP Family Medicine; Visit Provider Physician Assistant
DX: L03.115 Cellulitis of right lower limb (principal); I50.23 Acute on chronic systolic (congestive) heart failure; I48.20 Chronic atrial fibrillation, unspecified; M19.90 Unspecified osteoarthritis, unspecified site; N40.0 Benign prostatic hyperplasia without lower urinary tract symptoms; F03.90 Unspecified dementia, unspecified severity, without behavioral disturbance, psychotic disturbance, mood disturbance, and anxiety; L30.9 Dermatitis, unspecified; L89.629 Pressure ulcer of left heel, unspecified stage; L89.619 Pressure ulcer of right heel, unspecified stage
CPT/HCPCS: 36415; 51701; 71045; 73521; 73590; 73620; 73700; 80048; 80053; 80076; 80202; 81001; 82550; 83605; 83735; 85025; 85027; 85055; 85610; 87040; 93005; 96361; 96365; 99285; A9270; J0131; J0282; J0696; J1956; J2060; J3370; J7030; J7040

== ENCOUNTER 2020-12-16 14:02 | Inpatient (IN) | payer OTHER, SELFPAY ==
[2020-12-16] VITALS (13 sets, daily range): BP systolic 100–133; BP diastolic 74–99; PULSE 97–118; RESP 18–34; TEMP 36.7–36.8; O2SAT 90–100
--- NOTE | ~2020-12-16 | XR_ITS ---
EXAMINATION: XR chest 2V DATE: 12/16/2020 14:32 INDICATION: Shortness of breath. TECHNIQUE: Frontal and lateral views of the chest were obtained. COMPARISON: Chest single view 11/27/2020, chest CT 06/30/2016 FINDINGS: There are small pleural effusions. There are airspace opacities in right mid and lower lung zones and left perihilar region. No pneumothorax. Cardiomegaly is noted. IMPRESSION: 1. Worsened airspace opacities in right mid and lower lung zones and left perihilar region, consisten t with atelectasis versus pneumonia. 2. Worsened small pleural effusions. 3. Cardiomegaly. Reviewed, dictated and finalized at location A. IMPRESSION: 1. Worsened airspace opacities in right mid and lower lung zones and left perih ilar region, consistent with atelectasis versus pneumonia. 2. Worsened small pleural effusions. 3. Cardiomegaly.
--- NOTE | 2020-12-16 14:10 | ECG_ITS ---
Measurements Intervals [place] Rate: 106 P: MO: 0 QRS: -75 QRSD: 122 T: 113 QT: 366 QTc: 488 Interpretive Statements ATRIAL FIBRILLATION WITH RAPID VENTRICULAR RESPONSE LEFT AXIS DEVIATION ANTEROSEPTAL INFARCT, AGE INDETERMINATE CONSIDER INFERIOR INFARCT, AGE INDETERMINATE BASELINE ARTIFACT- I, III, AVR, AVL, AVF, V4 ABNORMAL ECG Electronically Signed On 12-16-2020 16:37:11 CDT by Scott Sanabria D.O.
[2020-12-16 15:00] LABS: Basophils Absolute Auto 0.1 K/mm3 (0.0-0.1); Basophils Percent Auto 0.6 % (0.2-1.2); Eosinophils Absolute Auto 0.1 K/mm3 (0-0.3); Eosinophils Percent Auto 1.4 % (0-4.4); Hematocrit 38.5 % (42.0-52.0); Hemoglobin 12.2 g/dL (14.0-18.0); Immature Granulocyte Absolute 0.04 K/mm3 (0.00-0.031); Immature Granulocyte Percent A 0.4 % (0-0.5); Lymphocytes Absolute Auto 2.17 K/mm3 (0.9-3.2); Lymphocytes Percent Auto 23.1 % (18.3-44.2); Mean Corpuscular HGB Conc 31.7 g/dl (32-36); Mean Corpuscular Hemoglobin 27.8 pg (26-34); Mean Corpuscular Volume 87.7 fl (80-100); Mean Platelet Volume 11.1 fl (7.4-10.4); Monocytes Absolute Auto 0.8 K/mm3 (0.1-0.6); Monocytes Percent Auto 8.5 % (2.6-8.5); Neutrophils Absolute Auto 6.2 K/mm3 (1.3-6.7); Platelet Count Result 258 k/mm3 (150-375); Red Blood Count 4.39 M/mm3 (4.6-6.20); Red Cell Distribution Width 16.4 % (11.5-14.5); White Blood Count 9.4 K/mm3 (4.5-10.0)
[2020-12-16 15:09] LABS: Alanine Aminotransferase 25 U/L (4-50); Albumin Level 3.3 g/dL (3.5-5.1); Alkaline Phosphatase 152 U/L (38-126); Anion Gap 11 mmol/L (8-16); Aspartate Amino Transferase 39 U/L (17-59); Bilirubin,Total 1.1 mg/dL (0.2-1.3); Blood Urea Nitrogen 47 mg/dL (9-20); Calcium 8.5 mg/dL (8.4-10.2); Carbon Dioxide 17 mmol/L (22-30); Chloride 120 mmol/L (98-107); Estimated CRCL calculation 38 ml/min; Estimated Glomerular Filt Rate 45; Glucose 135 mg/dL (65-110); Potassium 4.7 mmol/L (3.4-5.0); Sodium 148 mmol/L (137-145)
[2020-12-16 15:15] LABS: Lactic Acid Reflex 2.8 mmol/L (0.7-2.1)
[2020-12-16 15:24] LABS: NT Pro B Type Natriuretic Pept > 35000 pg/mL (5-100); Troponin I 0.088 ng/mL (0.000-0.034)
[2020-12-16] MEDS: ALBUTEROL SULFATE NEB 2.5 MG/0.5 ML INH 5 MG INHALATION (15:37)
--- NOTE | 2020-12-16 16:22 | PC.NURSE ---
SPOKE WITH NONA CONTRERAS FROM [facility]. UPDATES GIVEN
[2020-12-16] MEDS: LACTATED RINGERS 1,000 ML 999 ML IV CONT ×2 (16:26→16:27)
--- NOTE | 2020-12-16 16:28 | PC.NURSE ---
SPOKE WITH DAUGHTER/ANA NORRISCRISELDA. UPDATES GIVEN. ALL QUESTIONS ANSWERED
--- NOTE | 2020-12-16 16:43 | ED.SOB ---
HPI - SOB/Dyspnea General Chief Complaint: Shortness of Breath/Dyspnea Stated Complaint: SOB Time Seen by Provider: 12/16/20 14:33 Source: EMS and old records reviewed Mode of arrival: EMS Limitations: dementia and other History of Present Illness HPI Narrative: 79-year-old male Patient is DNR with chronic dementia with a baseline of being oriented x0-1 and multiple other medical issues He was discharged from here about 2 weeks ago after being admitted with infections in his legs and possibly also pneumonia He was sent from [facility] today because of low O2 sats Very little additional history provided by the sending facility Patient is unable to verbalize any coherent complaints Related Data Home Medications Medication Instructions Recorded Confirmed finasteride 5 mg PO DAILY 07/16/19 12/16/20 Arginaid 4.5 g PO BID 09/27/20 12/16/20 bisacodyl 10 mg RECTAL DAILY PRN 09/27/20 12/16/20 lorazepam [Ativan] 0.5 mg PO TID PRN 09/27/20 12/16/20 multivitamin with minerals [Daily 1 tablet PO DAILY 09/27/20 12/16/20 Multivitamin-Minerals] memantine 5 mg tablet 5 mg PO BID 10/16/20 12/16/20 Allergies Allergy/AdvReac Type Severity Reaction Status Date / Time amoxicillin Allergy Intermediate Rash Verified 12/16/20 14:11 codeine Allergy Intermediate Unknown Verified 12/16/20 14:11 quinidine Allergy Mild RASH Verified 12/16/20 14:11 enalapril Allergy Unknown Unknown Verified 12/16/20 14:11 Penicillins Allergy Unknown Unknown Verified 12/16/20 14:11 Review of Systems Review of Systems: ROS unobtainable: Yes unobtainable due to mental status PMFSH Past Medical History Medical History Afib Ankle fracture, left Arthritis BPH (benign prostatic hyperplasia) Cancer Cataracts, bilateral CHF (congestive heart failure) Chicken pox Dementia Eczema Frequent nosebleeds History of blood transfusion HTN (hypertension) Irregular heart beat Mumps Pneumonia Shingles Thoracic aortic aneurysm Ventral hernia Surgical History Surgical History History of cataract surgery History of inguinal hernia repair Family History Family History Sibling Family history of gastrointestinal disorder Mother Acute myocardial infarction Father Family history of lung cancer Family history of emphysema Social History Social History Social History: The patient is from [facility]. The patient is noted to be retired and he is listed as being . The patient is listed as a DNR. He has a daughter is listed as next of kin for personalization specialist. Smoking status: Smoker, status unknown Alcohol intake: unknown Substance use: never Substance use type: unknown Gender identity (if verbalized by the patient): Male Spiritual care concerns: No Agree to blood products: Yes Exam Const: General: cooperative, confusion and ill appearing Other: Elderly, frail HENMT: Head: normal to inspection, normocephalic and atraumatic Ears: external ears normal General nose exam: no epistaxis Mouth: Yes dry mucous membranes Eyes: Conjunctivae: conjunctivae normal EOM: EOMs intact bilaterally Neck: Neck: normal visual inspection, supple and no JVD Resp: Effort & Inspection: not labored and tachypneic Auscultation: no rales, rhonchi, no wheezes and other (BS =) Cardio: Rate: tachycardic Rhythm: abnormal rhythm irregularly irregular Heart sounds: no murmurs GI: GI Palp: Yes Soft to palpation and No Guarding due to palpation present (GI) Skin: General skin exam: normal color and no rashes or lesions noted Neuro: Other: Alert, responds to his name, speech is gibberish, moves extremities x4 Extrem: Other: Mild edema, several dressed wounds, very little if any erythema Course Course Emergency Course: O2 sat
--- NOTE | 2020-12-16 17:48 | PC.NURSE ---
CALLED DAUGHTER CRISELDA PEREZ. UPDATES GIVEN.
[2020-12-16 18:02] LABS: Reflex Lactic Acid Yes or No Add Lactic
[2020-12-16] MEDS: METOPROLOL TARTRATE INJ 5 MG/5 ML VIAL IV PUSH (18:36)
[2020-12-16 18:52] LABS: Lactic Acid 3.1 mmol/L (0.7-2.1)
[2020-12-16 19:08] LABS: Troponin I 0.083 ng/mL (0.000-0.034)
--- NOTE | 2020-12-16 22:15 | PC.NURSE ---
[facility] faxed from ED to IMU department. Report called from ED at [id number]. Report given by DIANE Gonzalez.
[2020-12-16 22:29] LABS: Troponin I 0.092 ng/mL (0.000-0.034)
--- NOTE | 2020-12-16 23:01 | ADMGEN ---
This patient, Abraham Garland, was admitted to IMU Room 203-01 at 2235 from the ER. Patient/family oriented to hospital policies and general routines including ID bracelet, bed and alarms, visiting hours, pain management, procedures, bathroom and other care routines, personal items, smoking policy, room service/diet, and visiting hours. Information on how to activate the Rapid Response Team has been discussed. Patient/Family are encouraged to report perceived risks to care and to ask questions if they do not understand what they are told or what they should do.
--- NOTE | 2020-12-16 23:25 | PM.IMHP ---
H&P: HPI History of Present Illness Date/Time: 12/16/20 23:25 Chief Complaint: Altered mental status Narrative: This is an 79-year-old male who is a residential resident he has past medical history significant for advanced dementia, atrial fibrillation rate controlled anticoagulated, chronic bilateral lower extremity wounds, benign prostatic hyperplasia. Patient with recent discharge from [facility] due to wound infection that required debridement. Patient now comes back due to staff concerns for patient's deterioration in his mental status his usually oriented to person most days by what I gather from history. At the time of my visit patient was unable to provide any history. Preliminary workup was significant for worsening infiltrates on chest x-ray BMP shows increased creatinine and sodium. Review of Systems Review of Systems: ROS unobtainable: Yes unobtainable due to medical condition (Advanced dementia) PMFSH Past Medical History Medical History Afib Ankle fracture, left Arthritis BPH (benign prostatic hyperplasia) Cancer Cataracts, bilateral CHF (congestive heart failure) Chicken pox Dementia Eczema Frequent nosebleeds History of blood transfusion HTN (hypertension) Irregular heart beat Mumps Pneumonia Shingles Thoracic aortic aneurysm Ventral hernia Surgical History Surgical History History of cataract surgery History of inguinal hernia repair Family History Family History Sibling Family history of gastrointestinal disorder Mother Acute myocardial infarction Father Family history of lung cancer Family history of emphysema Social History Social History Social History: The patient is from [facility]. The patient is noted to be retired and he is listed as being . The patient is listed as a DNR. He has a daughter is listed as next of kin for contact agent. Smoking status: Smoker, status unknown Alcohol intake: unknown Substance use: never Substance use type: unknown Gender identity (if verbalized by the patient): Male Spiritual care concerns: No Agree to blood products: Yes Meds Home Medications and Allergies Home Medications Medication Instructions Recorded Confirmed Type finasteride 5 mg PO DAILY 07/16/19 12/16/20 History acetaminophen [Mapap 650 mg PO Q4H PRN #30 tablet 07/16/20 12/16/20 Rx (acetaminophen)] Arginaid 4.5 g PO BID 09/27/20 12/16/20 History bisacodyl 10 mg RECTAL DAILY PRN 09/27/20 12/16/20 History lorazepam [Ativan] 0.5 mg PO TID PRN 09/27/20 12/16/20 History multivitamin with minerals [Daily 1 tablet PO DAILY 09/27/20 12/16/20 History Multivitamin-Minerals] metoprolol tartrate 12.5 mg PO DAILY #30 tablet 10/03/20 12/16/20 Rx memantine 5 mg tablet 5 mg PO BID 10/16/20 12/16/20 History amiodarone 200 mg PO DAILY #60 tablet 12/04/20 12/16/20 Rx apixaban [Eliquis] 5 mg PO BID #60 tablet 12/04/20 12/16/20 Rx collagenase clostridium histo. 1 applic TOPICAL Q12HR #30 g 12/04/20 12/16/20 Rx [Santyl] silver [Silver-Sept] 1 applic TOPICAL DAILY #1 g 12/04/20 12/16/20 Rx ascorbic acid (vitamin C) 500 mg PO DAILY 12/16/20 12/16/20 History clindamycin HCl 300 mg PO Q8H 12/16/20 12/16/20 History Allergies Allergy/AdvReac Type Severity Reaction Status Date / Time amoxicillin Allergy Intermediate Rash Verified 12/16/20 14:11 codeine Allergy Intermediate Unknown Verified 12/16/20 14:11 quinidine Allergy Mild RASH Verified 12/16/20 14:11 enalapril Allergy Unknown Unknown Verified 12/16/20 14:11 Penicillins Allergy Unknown Unknown Verified 12/16/20 14:11 Vital Signs Vital Signs - 24 hr 12/16/20 14:05 12/16/20 15:37 12/16/20 15:50 Temperature 98.1 F Pulse Rate 108 H 112 H 100 Respiratory Rate 34 H 28 H 28 H Blood
[2020-12-17] VITALS (20 sets, daily range): BP systolic 90–111; BP diastolic 54–76; PULSE 89–122; RESP 16–26; TEMP 35.8–37; O2SAT 91–100; BMI 23.4
[2020-12-17] MEDS: DEXTROSE 5%/0.45% SOD CHL 1,000 ML 75 ML IV CONT ×2 (02:15→16:37)
[2020-12-17] MEDS: IPRATROPIUM BR 0.02% INH SOLN 0.5 MG/2.5 ML VIAL INHALATION ×4 (03:36→20:35)
[2020-12-17] MEDS: ALBUTEROL SULFATE NEB 2.5 MG/0.5 ML INH 5 MG INHALATION ×4 (03:36→20:35)
[2020-12-17 05:14] LABS: Basophils Absolute Auto 0.1 K/mm3 (0.0-0.1); Basophils Percent Auto 0.7 % (0.2-1.2); Eosinophils Absolute Auto 0.1 K/mm3 (0-0.3); Hematocrit 37.7 % (42.0-52.0); Hemoglobin 11.4 g/dL (14.0-18.0); Immature Granulocyte Absolute 0.06 K/mm3 (0.00-0.031); Immature Granulocyte Percent A 0.6 % (0-0.5); Lymphocytes Absolute Auto 2.13 K/mm3 (0.9-3.2); Lymphocytes Percent Auto 21.1 % (18.3-44.2); Mean Corpuscular HGB Conc 30.2 g/dl (32-36); Mean Corpuscular Hemoglobin 27.4 pg (26-34); Mean Corpuscular Volume 90.6 fl (80-100); Mean Platelet Volume 11.3 fl (7.4-10.4); Monocytes Absolute Auto 0.8 K/mm3 (0.1-0.6); Monocytes Percent Auto 7.4 % (2.6-8.5); Neutrophils Percent Auto 69.2 % (45.5-73.1); Platelet Count Result 219 k/mm3 (150-375); Red Blood Count 4.16 M/mm3 (4.6-6.20); Red Cell Distribution Width 16.5 % (11.5-14.5); White Blood Count 10.1 K/mm3 (4.5-10.0)
[2020-12-17 05:32] LABS: Anion Gap 12 mmol/L (8-16); Blood Urea Nitrogen 45 mg/dL (9-20); Calcium 8.2 mg/dL (8.4-10.2); Carbon Dioxide 19 mmol/L (22-30); Chloride 112 mmol/L (98-107); Estimated CRCL calculation 34 ml/min; Estimated Glomerular Filt Rate 39; Glucose 105 mg/dL (65-110); Potassium 4.4 mmol/L (3.4-5.0); Sodium 143 mmol/L (137-145)
[2020-12-17] MEDS: FINASTERIDE 5 MG TABLET PO (09:16)
[2020-12-17] MEDS: ASPIRIN 81 MG CHEWABLE TABLET PO (09:16)
[2020-12-17] MEDS: ASCORBIC ACID 500 MG TABLET PO (09:16)
[2020-12-17] MEDS: AMIODARONE HCL 200 MG TABLET PO (09:16)
[2020-12-17] MEDS: MEMANTINE 5 MG TABLET PO ×2 (09:16→16:40)
[2020-12-17] MEDS: METOPROLOL TARTRATE 12.5 MG TABLET PO (09:16)
[2020-12-17] MEDS: APIXABAN 5 MG TABLET PO ×2 (09:16→16:40)
[2020-12-17] MEDS: THERAPEUTIC MULTIVITAMINS/MINERALS TAB (*BKC) 1 TABLET PO (09:16)
--- NOTE | 2020-12-17 16:00 | PC.NURSE ---
This patient, Abraham Garland, was transferred to [facility] on 12/17/20 at 1600. Personal belongings sent with patient. Report given to DIANE Gonzáles. Appropriate documentation sent with patient.
--- NOTE | 2020-12-17 16:13 | PC.NURSE ---
This patient, Abraham Garland, was received from IMU 203 on 12/17/20 at 1613. Patient/family oriented to unit policies and routines
[2020-12-17] MEDS: COLLAGENASE OINT 30 GM TUBE 1 APPLIC TOPICAL ×2 (16:32→21:23)
[2020-12-17] MEDS: SILVERGEL (ELTA) 45 ML 1 APPLIC TOPICAL (16:32)
--- NOTE | 2020-12-17 16:58 | PM.IMPN ---
Progress Note: A&P Assessment and Plan (1) Healthcare-associated pneumonia: Code(s): J18.9 - Pneumonia, unspecified organism Status: Acute Assessment and Plan: Admit to regular medical floor Placed on cefepime vancomycin and Zithromax Await cultures Supportive care Patient remains somnolent unable to provide any review of symptom patient has been admitted several times it seems patient condition is worsening mentally and physically there was a talk about hospice but no family member has visited the patient to plan, continue to monitor, I called patient daughter Christin [phone] no answer, left message to call back to discuss planning. (2) A-fib: Code(s): I48.91 - Unspecified atrial fibrillation Status: Acute Assessment and Plan: Rate controlled and anticoagulated Continue to monitor (3) HTN (hypertension): Qualifiers: Hypertension type: essential hypertension Qualified Code(s): I10 - Essential (primary) hypertension Code(s): I10 - Essential (primary) hypertension Status: Acute Assessment and Plan: Continue metoprolol Continue to monitor (4) Altered mental status: Code(s): R41.82 - Altered mental status, unspecified Status: Acute Assessment and Plan: Likely secondary to infection Continue to monitor Supportive care (5) Systolic CHF, acute on chronic: Code(s): I50.23 - Acute on chronic systolic (congestive) heart failure Status: Acute Assessment and Plan: Patient with elevated brain natriuretic peptide however on physical exam patient appears to be dry Will cautiously hydrate Monitor daily intake and output (6) Pressure ulcer of right heel: Code(s): L89.619 - Pressure ulcer of right heel, unspecified stage Status: Acute Assessment and Plan: Around the clock turning schedule Wound care consult (7) Pressure ulcer of left heel: Code(s): L89.629 - Pressure ulcer of left heel, unspecified stage Status: Acute Assessment and Plan: Around the clock turning schedule Wound care consult Subjective Date/time seen: Patient remains somnolent unable to provide any review of symptom patient has been admitted several times it seems patient condition is worsening mentally and physically there was a talk about hospice but no family member has visited the patient to plan, continue to monitor, I called patient daughter Christin [phone] no answer, left message to call back to discuss planning. Review of Systems Review of Systems: ROS unobtainable: Yes unobtainable due to medical condition (Advanced dementia) Exam Narrative: Elderly frail Patient is comfortable, NAD HEENT: eyes are clear and none icteric LUNGS: Normal respiratory effort ABD: Not distended Lower extremities: no edema SKIN: nonjaundiced Neuro: Somnolent. Objective Data Vital Signs Vital Signs: Vital Signs - 24 hr 12/16/20 17:05 12/16/20 17:59 12/16/20 18:32 Temperature Pulse Rate 112 H 101 H 118 H Respiratory Rate 28 H 24 H 26 H Blood Pressure 111/99 H 101/78 120/94 H Pulse Oximetry 90 100 98 12/16/20 18:36 12/16/20 19:22 12/16/20 20:54 Temperature Pulse Rate 115 H 97 100 Respiratory Rate 22 H 18 Blood Pressure 119/74 101/74 Pulse Oximetry 100 100 12/16/20 22:17 12/16/20 22:35 12/16/20 23:44 Temperature 98.3 F Pulse Rate 108 H 115 H 102 H Respiratory Rate 22 H 26 H Blood Pressure 124/74 108/89 Pulse Oximetry 100 100 100 12/17/20 00:00 12/17/20 02:00 12/17/20 03:37 Temperature Pulse Rate 111 H 104 H 107 H Respiratory Rate 20 Blood Pressure Pulse Oximetry 92 12/17/20 03:45 12/17/20 04:00 12/17/20 06:00 Temperature 97.8 F Pulse Rate 108 H 109 H 99 Respiratory Rate 20 18 Blood Pressure 102/54 L Pulse Oximetry 92 12/17/20 08:00 12/17/20 08:31 12/17/20 09:16 Temperature 96.9 F L Pulse Rate 101 H 111 H 120 H Respiratory Rate 26 H Blood Pr
[2020-12-18] VITALS (14 sets, daily range): BP systolic 102–137; BP diastolic 58–79; PULSE 84–110; RESP 18–24; TEMP 36.4–37.1; O2SAT 92–100
[2020-12-18] MEDS: IPRATROPIUM BR 0.02% INH SOLN 0.5 MG/2.5 ML VIAL INHALATION ×4 (01:23→19:51)
[2020-12-18] MEDS: ALBUTEROL SULFATE NEB 2.5 MG/0.5 ML INH 5 MG INHALATION ×4 (01:23→19:51)
[2020-12-18] MEDS: DEXTROSE 5%/0.45% SOD CHL 1,000 ML 75 ML IV CONT (05:04)
[2020-12-18 06:19] LABS: Hematocrit 35.1 % (42.0-52.0); Hemoglobin 10.6 g/dL (14.0-18.0); Mean Corpuscular HGB Conc 30.2 g/dl (32-36); Mean Corpuscular Hemoglobin 27.2 pg (26-34); Mean Platelet Volume 11.5 fl (7.4-10.4); Platelet Count Result 188 k/mm3 (150-375); Red Cell Distribution Width 16.6 % (11.5-14.5); White Blood Count 9.2 K/mm3 (4.5-10.0)
[2020-12-18 06:22] LABS: Anion Gap 9 mmol/L (8-16); Blood Urea Nitrogen 46 mg/dL (9-20); Calcium 8.2 mg/dL (8.4-10.2); Carbon Dioxide 17 mmol/L (22-30); Chloride 119 mmol/L (98-107); Estimated CRCL calculation 36 ml/min; Estimated Glomerular Filt Rate 42; Glucose 106 mg/dL (65-110); Potassium 4.4 mmol/L (3.4-5.0); Sodium 145 mmol/L (137-145)
[2020-12-18] MEDS: MEMANTINE 5 MG TABLET PO ×2 (08:17→17:45)
[2020-12-18] MEDS: METOPROLOL TARTRATE 12.5 MG TABLET PO (08:17)
[2020-12-18] MEDS: THERAPEUTIC MULTIVITAMINS/MINERALS TAB (*BKC) 1 TABLET PO (08:17)
[2020-12-18] MEDS: APIXABAN 5 MG TABLET PO ×2 (08:18→17:44)
[2020-12-18] MEDS: SILVERGEL (ELTA) 45 ML 1 APPLIC TOPICAL (08:18)
[2020-12-18] MEDS: FINASTERIDE 5 MG TABLET PO (08:18)
[2020-12-18] MEDS: COLLAGENASE OINT 30 GM TUBE 1 APPLIC TOPICAL ×2 (08:18→21:40)
[2020-12-18] MEDS: ASPIRIN 81 MG CHEWABLE TABLET PO (08:18)
[2020-12-18] MEDS: ASCORBIC ACID 500 MG TABLET PO (08:18)
[2020-12-18] MEDS: AMIODARONE HCL 200 MG TABLET PO (08:18)
--- NOTE | 2020-12-18 11:55 | PM.IMPN ---
Progress Note: A&P Assessment and Plan (1) Sepsis: Code(s): A41.9 - Sepsis, unspecified organism Status: Acute Assessment and Plan: Please related to pneumonia as revealing the chest x-ray will check urinalysis and urine culture fall Lactic acidosis is present on admission the C4d a relating to AFib with RVR (2) Healthcare-associated pneumonia: Code(s): J18.9 - Pneumonia, unspecified organism Status: Acute Assessment and Plan: Admit to regular medical floor Placed on cefepime vancomycin and Zithromax Await cultures Supportive care Patient remains somnolent unable to provide any review of symptom patient has been admitted several times it seems patient condition is worsening mentally and physically there was a talk about hospice but no family member has visited the patient to plan, continue to monitor, I called patient daughter Christin [phone] no answer, left message to call back to discuss planning. 12/18 patient more awake today likely at baseline continue current management for pneumonia check UA and urine culture (3) A-fib: Code(s): I48.91 - Unspecified atrial fibrillation Status: Acute Assessment and Plan: Rate controlled and anticoagulated Continue to monitor Better rate controlled chronically anticoagulated (4) HTN (hypertension): Qualifiers: Hypertension type: essential hypertension Qualified Code(s): I10 - Essential (primary) hypertension Code(s): I10 - Essential (primary) hypertension Status: Acute Assessment and Plan: Continue metoprolol Continue to monitor (5) Altered mental status: Code(s): R41.82 - Altered mental status, unspecified Status: Acute Assessment and Plan: Likely secondary to infection Continue to monitor Supportive care Improving (6) Systolic CHF, acute on chronic: Code(s): I50.23 - Acute on chronic systolic (congestive) heart failure Status: Acute Assessment and Plan: Patient with elevated brain natriuretic peptide however on physical exam patient appears to be dry Will cautiously hydrate Monitor daily intake and output Will stop his IV fluid today he is eating okay (7) Pressure ulcer of right heel: Code(s): L89.619 - Pressure ulcer of right heel, unspecified stage Status: Acute Assessment and Plan: Around the clock turning schedule Wound care consult (8) Pressure ulcer of left heel: Code(s): L89.629 - Pressure ulcer of left heel, unspecified stage Status: Acute Assessment and Plan: Around the clock turning schedule Wound care consult (9) Elevated troponin: Code(s): R77.8 - Other specified abnormalities of plasma proteins Status: Acute Assessment and Plan: Flap serial trend. Not suggestive of ACS (10) Lactic acidosis: Code(s): E87.2 - Acidosis Status: Acute Assessment and Plan: Recheck lactic acid level (11) Dementia: Qualifiers: Dementia type: Alzheimer's Alzheimer's disease onset: unspecified onset Dementia behavioral disturbance: without behavioral disturbance Qualified Code(s): G30.9 - Alzheimer's disease, unspecified; F02.80 - Dementia in other diseases classified elsewhere without behavioral disturbance Code(s): F03.90 - Unspecified dementia without behavioral disturbance Status: Acute (12) DVT prophylaxis: Code(s): Z29.9 - Encounter for prophylactic measures, unspecified Status: Acute Assessment and Plan: On Eliquis Subjective Date/time seen: 12/18/20 11:55 Interval history: More awake today per nursing staff as more at baseline status now. He ate his breakfast he knows his name not able to say his birthday but he had stated that to his nurse this morning Review of Systems Review of Systems: ROS unobtainable: Yes unobtainable due to medical condition (Advanced dementia) Exam Narrative: Elderly frail not in acute di
[2020-12-18 13:20] LABS: Lactic Acid Reflex 2.2 mmol/L (0.7-2.1)
[2020-12-18 15:22] LABS: Add Urine Microscopic? YES; Appearance Urine Clear (Clear); Bilirubin Urine Negative (Negative); Blood Urine Negative (Negative); Color Urine Amber (Yellow); Glucose Urine UA Negative (Negative); Ketones Urine Trace mg/dL (Negative); Leukocyte Esterase Ur Negative LEU/UL (NEGATIVE); Nitrate Urine Negative (Negative); Protein Urine 1+ mg/dL (Negative); Specific Grav Ur 1.023 (1.001-1.035); Squamous Epithelial Cell Urine Rare /hpf (Few); Urobilinogen Urine Negative mg/dL (<2.0); WBC Urine 0-3 /hpf (0-3)
[2020-12-18 16:08] LABS: Reflex Lactic Acid Yes or No Add Lactic
[2020-12-18 17:07] LABS: Lactic Acid 2.4 mmol/L (0.7-2.1)
[2020-12-19] VITALS (15 sets, daily range): BP systolic 96–158; BP diastolic 50–79; PULSE 73–115; RESP 18–24; TEMP 36.4–36.6; O2SAT 93–99
[2020-12-19] MEDS: IPRATROPIUM BR 0.02% INH SOLN 0.5 MG/2.5 ML VIAL INHALATION ×4 (01:56→20:09)
[2020-12-19] MEDS: ALBUTEROL SULFATE NEB 2.5 MG/0.5 ML INH 5 MG INHALATION ×4 (01:56→20:08)
[2020-12-19 06:36] LABS: Hematocrit 34.6 % (42.0-52.0); Hemoglobin 10.7 g/dL (14.0-18.0); Mean Corpuscular HGB Conc 30.9 g/dl (32-36); Mean Corpuscular Hemoglobin 27.5 pg (26-34); Mean Corpuscular Volume 88.9 fl (80-100); Mean Platelet Volume 11.6 fl (7.4-10.4); Platelet Count Result 183 k/mm3 (150-375); Red Blood Count 3.89 M/mm3 (4.6-6.20); Red Cell Distribution Width 16.9 % (11.5-14.5); White Blood Count 8.7 K/mm3 (4.5-10.0)
[2020-12-19 06:50] LABS: Anion Gap 9 mmol/L (8-16); Blood Urea Nitrogen 45 mg/dL (9-20); Calcium 8.2 mg/dL (8.4-10.2); Carbon Dioxide 15 mmol/L (22-30); Chloride 119 mmol/L (98-107); Estimated CRCL calculation 34 ml/min; Estimated Glomerular Filt Rate 39; Glucose 90 mg/dL (65-110); Potassium 4.6 mmol/L (3.4-5.0); Sodium 143 mmol/L (137-145)
[2020-12-19] MEDS: METOPROLOL TARTRATE 12.5 MG TABLET PO (08:36)
[2020-12-19] MEDS: FINASTERIDE 5 MG TABLET PO (08:37)
[2020-12-19] MEDS: ASCORBIC ACID 500 MG TABLET PO (08:37)
[2020-12-19] MEDS: APIXABAN 5 MG TABLET PO ×2 (08:37→17:02)
[2020-12-19] MEDS: AMIODARONE HCL 200 MG TABLET PO (08:37)
[2020-12-19] MEDS: ASPIRIN 81 MG CHEWABLE TABLET PO (08:37)
[2020-12-19] MEDS: MEMANTINE 5 MG TABLET PO ×2 (08:37→17:02)
[2020-12-19] MEDS: THERAPEUTIC MULTIVITAMINS/MINERALS TAB (*BKC) 1 TABLET PO (08:37)
[2020-12-19] MEDS: COLLAGENASE OINT 30 GM TUBE 1 APPLIC TOPICAL ×2 (08:38→22:53)
[2020-12-19] MEDS: SILVERGEL (ELTA) 45 ML 1 APPLIC TOPICAL (08:38)
--- NOTE | 2020-12-19 17:08 | PM.IMPN ---
Progress Note: A&P Assessment and Plan (1) Sepsis: Code(s): A41.9 - Sepsis, unspecified organism Status: Acute Assessment and Plan: Please related to pneumonia as revealing the chest x-ray will check urinalysis and urine culture fall Lactic acidosis is present on admission the C4d a relating to AFib with RVR (2) Healthcare-associated pneumonia: Code(s): J18.9 - Pneumonia, unspecified organism Status: Acute Assessment and Plan: cefepime vancomycin and Zithromax Await cultures; NGTD Supportive care admitted several times condition is worsening mentally and physically consult placed to hospice but and family is in agreement patient daughter Christin [phone] 12/18 patient more awake today likely at baseline continue current management for pneumonia check UA and urine culture 12/19 family has signed [facility] (3) A-fib: Code(s): I48.91 - Unspecified atrial fibrillation Status: Acute Assessment and Plan: Rate controlled and anticoagulated Continue to monitor Better rate controlled chronically anticoagulated (4) HTN (hypertension): Qualifiers: Hypertension type: essential hypertension Qualified Code(s): I10 - Essential (primary) hypertension Code(s): I10 - Essential (primary) hypertension Status: Acute Assessment and Plan: Continue metoprolol Continue to monitor (5) Altered mental status: Code(s): R41.82 - Altered mental status, unspecified Status: Acute Assessment and Plan: Likely secondary to infection superimposed on dementia Continue to monitor Supportive care Improving (6) Systolic CHF, acute on chronic: Code(s): I50.23 - Acute on chronic systolic (congestive) heart failure Status: Acute Assessment and Plan: Patient with elevated brain natriuretic peptide however on physical exam patient appears to be dry Will cautiously hydrate Monitor daily intake and output 12/19/20 of IVFs and tolerating PO (7) Pressure ulcer of right heel: Code(s): L89.619 - Pressure ulcer of right heel, unspecified stage Status: Acute Assessment and Plan: Around the clock turning schedule Wound care consult (8) Pressure ulcer of left heel: Code(s): L89.629 - Pressure ulcer of left heel, unspecified stage Status: Acute Assessment and Plan: Around the clock turning schedule Wound care consult (9) Elevated troponin: Code(s): R77.8 - Other specified abnormalities of plasma proteins Status: Acute Assessment and Plan: Flat serial trend. Not suggestive of ACS (10) Lactic acidosis: Code(s): E87.2 - Acidosis Status: Acute Assessment and Plan: Recheck lactic acid level (11) Dementia: Qualifiers: Dementia type: Alzheimer's Alzheimer's disease onset: unspecified onset Dementia behavioral disturbance: without behavioral disturbance Qualified Code(s): G30.9 - Alzheimer's disease, unspecified; F02.80 - Dementia in other diseases classified elsewhere without behavioral disturbance Code(s): F03.90 - Unspecified dementia without behavioral disturbance Status: Acute (12) DVT prophylaxis: Code(s): Z29.9 - Encounter for prophylactic measures, unspecified Status: Acute Assessment and Plan: On Eliquis Subjective Date/time seen: 12/19/20 17:08 family has met whitley Kraus dc to SNF tomorrow w their services Exam Narrative: Elderly frail not in acute distress Patient is comfortable, NAD, voice is soft barely audible HEENT: eyes are clear and none icteric LUNGS: Normal respiratory effort bilateral coarse breath sound on oxygen ABD: Not distended soft nontender Lower extremities: no edema no cyanosis or clubbing, ecchymosis and R hand swelling SKIN: nonjaundiced chronic ulcer and right heel and right leg abrasion on right knee noted Neuro: CN intact AAOx1 Objective Data
[2020-12-19 17:45] LABS: Vancomycin Trough 9.1 ug/mL (10.0-20.0)
[2020-12-20] VITALS (9 sets, daily range): BP systolic 128; BP diastolic 81; PULSE 67–108; RESP 20–28; TEMP 36.2; O2SAT 94–98
[2020-12-20] MEDS: ALBUTEROL SULFATE NEB 2.5 MG/0.5 ML INH 5 MG INHALATION ×3 (01:35→13:21)
[2020-12-20] MEDS: IPRATROPIUM BR 0.02% INH SOLN 0.5 MG/2.5 ML VIAL INHALATION ×3 (01:35→13:21)
[2020-12-20 07:17] LABS: Hemoglobin 11.5 g/dL (14.0-18.0); Mean Corpuscular HGB Conc 30.3 g/dl (32-36); Mean Corpuscular Hemoglobin 27.4 pg (26-34); Mean Corpuscular Volume 90.7 fl (80-100); Mean Platelet Volume 11.9 fl (7.4-10.4); Platelet Count Result 179 k/mm3 (150-375); Red Blood Count 4.19 M/mm3 (4.6-6.20); Red Cell Distribution Width 17.2 % (11.5-14.5); White Blood Count 9.6 K/mm3 (4.5-10.0)
[2020-12-20 07:29] LABS: Anion Gap 14 mmol/L (8-16); Blood Urea Nitrogen 50 mg/dL (9-20); Calcium 8.4 mg/dL (8.4-10.2); Carbon Dioxide 16 mmol/L (22-30); Chloride 113 mmol/L (98-107); Estimated CRCL calculation 32 ml/min; Estimated Glomerular Filt Rate 36; Glucose 86 mg/dL (65-110); Potassium 4.6 mmol/L (3.4-5.0); Sodium 143 mmol/L (137-145)
[2020-12-20] MEDS: METOPROLOL TARTRATE 12.5 MG TABLET PO (09:07)
[2020-12-20] MEDS: FINASTERIDE 5 MG TABLET PO (09:07)
[2020-12-20] MEDS: THERAPEUTIC MULTIVITAMINS/MINERALS TAB (*BKC) 1 TABLET PO (09:08)
[2020-12-20] MEDS: MEMANTINE 5 MG TABLET PO (09:08)
[2020-12-20] MEDS: ASPIRIN 81 MG CHEWABLE TABLET PO (09:08)
[2020-12-20] MEDS: ASCORBIC ACID 500 MG TABLET PO (09:09)
[2020-12-20] MEDS: AMIODARONE HCL 200 MG TABLET PO (09:09)
[2020-12-20] MEDS: SILVERGEL (ELTA) 45 ML 1 APPLIC TOPICAL (09:09)
[2020-12-20] MEDS: COLLAGENASE OINT 30 GM TUBE 1 APPLIC TOPICAL (09:09)
[2020-12-20] MEDS: APIXABAN 5 MG TABLET PO (09:09)
--- NOTE | 2020-12-20 09:51 | PM.DS ---
DS: Admitting Diagnosis Admitting Diagnosis (1) Healthcare-associated pneumonia: Code(s): J18.9 - Pneumonia, unspecified organism Status: Acute Assessment and Plan: Admit to regular medical floor Placed on cefepime vancomycin and Zithromax Await cultures Supportive care (2) A-fib: Code(s): I48.91 - Unspecified atrial fibrillation Status: Acute Assessment and Plan: Rate controlled and anticoagulated Continue to monitor (3) HTN (hypertension): Qualifiers: Hypertension type: essential hypertension Qualified Code(s): I10 - Essential (primary) hypertension Code(s): I10 - Essential (primary) hypertension Status: Acute Assessment and Plan: Continue metoprolol Continue to monitor (4) Altered mental status: Code(s): R41.82 - Altered mental status, unspecified Status: Acute Assessment and Plan: Likely secondary to infection Continue to monitor Supportive care (5) Systolic CHF, acute on chronic: Code(s): I50.23 - Acute on chronic systolic (congestive) heart failure Status: Acute Assessment and Plan: Patient with elevated brain natriuretic peptide however on physical exam patient appears to be dry Will cautiously hydrate Monitor daily intake and output (6) Pressure ulcer of right heel: Code(s): L89.619 - Pressure ulcer of right heel, unspecified stage Status: Acute Assessment and Plan: Around the clock turning schedule Wound care consult (7) Pressure ulcer of left heel: Code(s): L89.629 - Pressure ulcer of left heel, unspecified stage Status: Acute DS: Discharge Diagnosis Discharge Diagnosis (1) Sepsis: Code(s): A41.9 - Sepsis, unspecified organism Status: Acute (2) Lactic acidosis: Code(s): E87.2 - Acidosis Status: Acute (3) Elevated troponin: Code(s): R77.8 - Other specified abnormalities of plasma proteins Status: Acute (4) Altered mental status: Code(s): R41.82 - Altered mental status, unspecified Status: Acute (5) Healthcare-associated pneumonia: Code(s): J18.9 - Pneumonia, unspecified organism Status: Acute (6) CHF (congestive heart failure): Code(s): I50.9 - Heart failure, unspecified Status: Acute (7) A-fib: Code(s): I48.91 - Unspecified atrial fibrillation Status: Acute (8) Wound of right lower extremity: Code(s): S81.801A - Unspecified open wound, right lower leg, initial encounter Status: Acute (9) Failure to thrive in adult: Code(s): R62.7 - Adult failure to thrive Status: Acute (10) Advanced dementia: Code(s): F03.90 - Unspecified dementia without behavioral disturbance Status: Acute (11) Hearing loss of aging: Code(s): 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 He was treated for pneumonia and considered to have acute metabolic encephalopathy encephalopathy superimposed on dementia. Patient had a benign clinical course and responded to medical therapy. Due to his overall functional decline and advancing dementia hospice was consulted and after careful consideration family agreed to Abraham returning [facility] under [facility] hospice care. patient is discharged in stable condition Time Spent with Patient Time attestation: Total time spent providing and/or coordinating discharge services: Time spent: Greater than 30 minutes Exam Narrative: GEN: NAD, AAOx1, cooperative dysphonia HEENT: NCAT, MMM, EOMI Neck: no JVD Heart: IRR Lungs: crackles NAD on 2 L NC Abd: soft, NT, ND Ext: moves all, no cyanosis, no clubbing, no edema Neuro: cranial nerves intact moves all extremities equally diffuse weakness throughout Psyc
== END 2020-12-20 14:20 | disposition hospice, home (50) | DRG 871 ==
LOC: ANHED 16:55 → ANHIMU 12-17 12:57 → ANH3MEDSUR 12-20 09:51 → ANHIMU 12-21 16:09
PROVIDERS: Emergency Medicine; Family Medicine; Internal Medicine; Admitting Provider Student in an Organized Health Care Education/Training Program; Emergency Provider Emergency Medicine; PCP Family Medicine; Visit Provider Hospitalist
DX: A41.9 Sepsis, unspecified organism (principal); J18.9 Pneumonia, unspecified organism; I50.23 Acute on chronic systolic (congestive) heart failure; G93.41 Metabolic encephalopathy; I48.20 Chronic atrial fibrillation, unspecified; I11.0 Hypertensive heart disease with heart failure; R62.7 Adult failure to thrive; F03.90 Unspecified dementia, unspecified severity, without behavioral disturbance, psychotic disturbance, mood disturbance, and anxiety; L89.620 Pressure ulcer of left heel, unstageable; L89.610 Pressure ulcer of right heel, unstageable; Z66 Do not resuscitate; N40.0 Benign prostatic hyperplasia without lower urinary tract symptoms; M19.90 Unspecified osteoarthritis, unspecified site; L30.9 Dermatitis, unspecified; Z79.01 Long term (current) use of anticoagulants
CPT/HCPCS: 36415; 71046; 80048; 80076; 80202; 81001; 83605; 83880; 84484; 85025; 85027; 87040; 87086; 93005; 94640; 96361; 96365; 96367; 99285; A9270; J0692; J3370; J7120

== ENCOUNTER → 2021-04-11 16:58 | Outpatient (NON) | payer OTHER, SELFPAY ==
[2020-01-26 20:08] LABS: SARS-CoV-2 RNA PCR Negative
== END | disposition home or self-care (01) ==
PROVIDERS: Visit Provider Family Medicine
DX: Z20.828 Contact with and (suspected) exposure to other viral communicable diseases (principal)
CPT/HCPCS: 87635; C9803; U0003